=== PATIENT | female | born 1980 | race Caucasian/White ===

== ENCOUNTER → 2020-11-18 09:58 | Outpatient (BNVA) | payer OTHER, SELFPAY | PROVIDERS: Visit Provider Advanced Practice Midwife ==

== ENCOUNTER 2021-09-08 21:56 | Emergency (ER) | payer OTHER, SELFPAY ==
[2021-09-08 22:05] VITALS: BP 132/81; PULSE 97; RESP 18; TEMP 37; O2SAT 98; BMI 23.8
--- NOTE | 2021-09-08 23:34 | ED_ITS ---
HPI - Skin/Abscess/Foreign Bdy General Chief complaint: Skin/Abscess/Foreign Body Stated complaint: abscess? on nose Time Seen by Provider: 09/08/21 23:25 Source: patient Mode of arrival: ambulatory Limitations: no limitations History of Present Illness HPI narrative: Patient comes to emergency room complaining of 8 days of a rash under her nose into the left nostril. Patient states it bhakta via bed. Patient went to Urgent Care, she was given cephalexin and valacyclovir. Patient stop taking valacyclovir. Cephalexin has not helped much. Patient states that the rash looks more crusty and it bhakta quite a bit. Patient denies fever or chills Related Data Home Medications Medication Instructions Recorded Confirmed dextroamphetamine-amphetamine 20 1 tab PO TID 11/18/20 01/23/21 mg tablet paroxetine HCl 40 mg tablet 40 mg PO DAILY 11/18/20 01/23/21 buprenorphine 8 mg-naloxone 2 mg 10 mg SUBLINGUAL DAILY ea 01/23/21 01/23/21 sublingual film Previous Rx's Medication Instructions Recorded cephalexin 500 mg tablet 500 mg PO TID 7 Days #21 tab 09/01/21 fluconazole 150 mg tablet 150 mg PO Q3D #2 tab 09/01/21 valacyclovir 1 gram tablet 1,000 mg PO BID 10 Days #20 tab 09/01/21 sulfamethoxazole 800 1 tab PO BID #13 tab 09/08/21 mg-trimethoprim 160 mg tablet (Bactrim DS) Allergies Allergy/AdvReac Type Severity Reaction Status Date / Time acetaminophen [ACETAMINOPHEN] Allergy Intermediate INCREASES Verified 09/08/21 22:05 INTERSTITIAL CYSTITIS Review of Systems Review of Systems: Constitutional : No Weight loss, No Fever, No Chills, No Night Sweats, No Fatigue, No Malaise ENT/Mouth : No Hearing loss, No Ear Pain, No Nasal Congestion, No Sinus Pain, No Hoarseness, No sore throat, No Rhinorrhea, No Swallowing Difficulty Eyes: No Eye Pain, No Swelling, No Redness, No Foreign Body, No Discharge, No Vision Changes Cardiovascular : No Chest Pain, No SOB, No Dyspnea on Exertion, No Orthopnea, No Edema, No Palpitations Respiratory : No Cough, No Sputum, No Wheezing, No Smoke Exposure, No Dyspnea Gastrointestinal : No Nausea, No Vomiting, No Diarrhea, No Constipation, No abdominal Pain, No Hematochezia, No Melena Genitourinary : no irregular bleeding, No Dysuria, No Urinary Frequency, No Hematuria, No Urinary Incontinence, No Urgency, No Flank Pain, No Urinary Flow Changes, No Hesitancy Musculoskeletal : No joint pain, No Myalgias, No Joint Swelling Skin : Complaining of a crusty rash under her nose Neuro : No Weakness, No Numbness, No Paresthesias, No Loss of Consciousness, No Dizziness, No Headache Psych : No Anxiety/Panic, No Depression, No SI/HI/AH/VH, No Social Issues, Heme/Lymph: No Bruising, No Bleeding,No Lymphadenopathy Endocrine : No Polyuria, No Polydipsia, No Temperature Intolerance PMFSH Past Medical History Medical History JAME III (cervical intraepithelial neoplasia grade III) with severe dysplasia Family history of hypertension Ganglion cyst of dorsum of left wrist Ganglion cyst of dorsum of left wrist H/O bipolar disorder History of anxiety History of depression History of fibromyalgia Hx of migraine headaches Interstitial cystitis Polyarthralgia PTSD (post-traumatic stress disorder) Surgical History H/O abdominal hysterectomy History of bladder surgery History of loop electrical excision procedure (LEEP) Hx of section Hx of tubal ligation Family History Family History Mother Lung cancer Maternal Aunt Ovarian cancer Maternal Grandmother History of breast cancer Family/Other Mental health disorder Substance use disorder Social History Social History Housing: Apartment Alcohol intake: former Patient Tobacco Use Status: Current everyday Tobacco user Tobacco use type: Cigarette Cigarettes Per Day: 6 e-Cigarette/Vaping Use: Never Used Second Hand Smoke Exposure: No Advance Directives: No Advance Directives Information Provided: Yes Patient : No service: No Current occupational status: unemployed Physical Exam Vital Signs: Vital Signs: Last Vital Signs Temp 98.6 F 09/08/21 22:05 Pulse 97 09/08/21 22:05 Resp 18 09/08/21 22:05 BP 132/81 09/08/21 22:05 Pulse Ox 98 09/08/21 22:05 BMI result Body Mass Index 23.8 Const: Other: Appearance: Alert. Oriented X3. No acute distress. Eyes: Pupils equal, round and reactive to light. Fluorescent stain test negativ e for dendrites ENT: Pharynx normal. Negative Romero's sign Neck: Normal inspection. Neck supple. No lymph nodes noted. No crepitus CVS: Normal heart rate and rhythm. Pulses normal. Normal S1 and S2 Respiratory: No respiratory distress. Breath sounds normal. No Wheezing. No rales Abdomen: Soft and nontender. No rigidity. No distention. Skin: Skin warm and dry. Crusty lesions under the nose. Extremities: No lower extremity edema. No lower extremity edema. No Lacerations. No Rash Neuro: Oriented X 3. No motor deficit. No sensory deficit. Moving all extermities. No slurred speech. Course Course Course Narrative: I discussed with the patient that this is likely a staph infection, if patient was asked to discontinue taking cephalexin, 1st dose of Bactrim given in the emergency room. Patient instructed to continue taking valacyclovir which was prescribed at the urgent care. Differential diagnosis: Shingles Discharge Plan Discharge Clinical Impression: Impetigo Patient Disposition: Home, Self-Care Instructions: Impetigo (ED) Additional Instructions: If you have no improvement in the next 24-48 hours or worsening symptoms please return to the emergency room. Please follow-up with your primary care physician tomorrow. If you have any worsening or new symptoms, please return to the emergency room or call 911 Prescriptions: New sulfamethoxazole-trimethoprim [Bactrim DS] 800-160 mg tablet 1 tab PO BID Qty: 13 0RF No Action fluconazole 150 mg tablet 150 mg PO Q3D Qty: 2 0RF Rx Instructions: may repeat second dose 72 hrs after first dose if symptoms persist valacyclovir 1 gram tablet 1,000 mg PO BID 10 Days Qty: 20 0RF cephalexin 500 mg tablet 500 mg PO TID 7 Days Qty: 21 0RF paroxetine HCl 40 mg tablet 40 mg PO DAILY 0RF dextroamphetamine-amphetamine 20 mg tablet 1 tab PO TID 0RF buprenorphine-naloxone 8-2 mg film 10 mg sublingual DAILY 0RF Referrals: Bernardino Covarrubias [Physician] - 2 days
[2021-09-09] MEDS: Sulfamethox/Trimeth 800/160 TABLET 1 TAB PO (00:10)
[2021-09-09] MEDS: Fluorescein Sodium STRIP 1 STRIP EYE-BOTH (00:14)
== END 2021-09-09 00:15 | disposition home or self-care (01) ==
PROVIDERS: Emergency Provider Emergency Medicine; PCP Internal Medicine
DX: L01.00 Impetigo, unspecified (principal); F17.210 Nicotine dependence, cigarettes, uncomplicated; Z71.6 Tobacco abuse counseling; Z79.899 Other long term (current) drug therapy
CPT/HCPCS: 99283

== ENCOUNTER 2021-10-26 15:01 | Outpatient (REF) | payer OTHER, SELFPAY ==
--- NOTE | ~2021-10-26 | XR_ITS ---
EXAMINATION: XR HAND, LEFT CLINICAL INFORMATION: Unspecified injury. COMPARISON: None TECHNIQUE: PA, lateral, and oblique views of the left hand. FINDINGS: The bones and soft tissues are normal. No fracture. Alignment is anatomic. Joint spaces are maintained. No erosions or soft tissue calcifications. XR/XR hand LT min 3V IMPRESSION: Normal left hand.
== END 2021-10-26 15:02 | disposition home or self-care (01) ==
LOC: HO.HMGCX 15:01
PROVIDERS: Visit Provider Physician Assistant
DX: S69.92XD Unspecified injury of left wrist, hand and finger(s), subsequent encounter (principal)
CPT/HCPCS: 73130

== ENCOUNTER 2021-12-06 10:40 | Emergency (ER) | payer OTHER, SELFPAY | END 2021-12-06 12:20 | disposition left against medical advice (07) | PROVIDERS: Emergency Provider Emergency Medicine; PCP Internal Medicine | DX: Z04.1 Encounter for examination and observation following transport accident (principal) ==

== ENCOUNTER 2022-03-04 11:49 | Emergency (ER) | payer OTHER, SELFPAY ==
[2022-03-04 11:57] VITALS: BP 143/84; PULSE 62; O2SAT 94
[2022-03-04 13:55] VITALS: BP 121/73; PULSE 53; RESP 14; TEMP 36.8; O2SAT 98; BMI 24.6
[2022-03-04 14:27] LABS: COVID-19 Test Positive (Negative)
[2022-03-04 14:29] LABS: Appearance Urine Clear; Color Urine Yellow; Glucose Urine UA Negative (Negative); Leukocyte Esterase Urine Negative (Negative); Nitrite Urine Negative (Negative); Specific Gravity - Urine >= 1.030 (1.005-1.025); Urine Blood Negative (Negative); Urine Ketones >=160 mg/dL (Negative); Urine Protein 30 (1+) mg/dL (Neg-Trace)
[2022-03-04 14:33] LABS: Bacteria Urine None Seen (None Seen); Hyaline Casts Urine 0-2 /LPF (0-2); RBC Urine 0-2 /HPF (0-2); WBC Urine 0-5 /HPF (0-5)
--- NOTE | 2022-03-04 17:09 | ED_ITS ---
HPI - General Adult General Chief complaint: General Medical Stated complaint: GENERAL WEAKNESS Time Seen by Provider: 03/04/22 16:44 Source: patient Mode of arrival: ambulatory Limitations: no limitations History of Present Illness HPI narrative: 41 year old female with history of polyarthralgia, substance abuse on Suboxone, recent tooth extractions 5 days ago who presents to the ER for body aches and not feeling well for the last 3 days. She was recently around her mother was known to be COVID positive. She has been in bed for the last 3 days, sleeping longer than she normally does. She has decreased p.o. intake because of her recent tooth extractions. She denies any chest pain or shortness on breath. Her whole body feels very weak. She has had intermittent dizziness and restlessness over the weekend. He is not vomiting or having any diarrhea. Unknown if she has had any fevers. MD complaint: Body aches, decreased p.o. intake Onset (ago): day(s) (3) Location: head, face, mouth, back, left, right, upper extremity and lower extremity Radiation: non-radiation Severity: moderate Severity scale (1-10): 6 Quality: aching Pain Consistency: constant Relieving factors: none Exacerbating factors: none Associated symptoms: headaches, loss of appetite, malaise and weakness Treatments prior to arrival: none Related Data Home Medications Medication Instructions Recorded Confirmed dextroamphetamine-amphetamine 20 1 tab PO TID 11/18/20 01/23/21 mg tablet paroxetine HCl 40 mg tablet 40 mg PO DAILY 11/18/20 01/23/21 buprenorphine 8 mg-naloxone 2 mg 10 mg sublingual DAILY 01/23/21 01/23/21 sublingual film Previous Rx's Medication Instructions Recorded cephalexin 500 mg tablet 500 mg PO TID 7 days #21 tabs 09/01/21 fluconazole 150 mg tablet 150 mg PO Q3D 2 doses #2 tabs 09/01/21 valacyclovir 1 gram tablet 1,000 mg PO BID 10 days #20 tabs 09/01/21 sulfamethoxazole 800 1 tab PO BID #13 tabs 09/08/21 mg-trimethoprim 160 mg tablet (Bactrim DS) Allergies Allergy/AdvReac Type Severity Reaction Status Date / Time acetaminophen [ACETAMINOPHEN] Allergy Intermediate INCREASES Verified 10/26/21 14:46 INTERSTITIAL CYSTITIS Review of Systems Review of Systems: Constitutional: No Fever, No Chills ENT/Mouth: No sore throat, No Rhinorrhea, No Swallowing Difficulty, +Dental pain Cardiovascular: No Chest Pain, No SOB Respiratory: No Cough, No Sputum, No Wheezing, No dyspnea Gastrointestinal: No Nausea, No Vomiting, No Diarrhea, No abdominal Pain Genitourinary: No Dysuria, No Urinary Frequency, No Hematuria Musculoskeletal: No joint pain, No Myalgias Skin: No Skin Lesions, No rash Neuro: + Weakness, No Numbness, + Dizziness, + Headache Psych: No Anxiety/Panic, No Depression Heme/Lymph: No Bruising, No Lymphadenopathy PMFSH Past Medical History Medical History JAME III (cervical intraepithelial neoplasia grade III) with severe dysplasia Family history of hypertension Ganglion cyst of dorsum of left wrist Ganglion cyst of dorsum of left wrist H/O bipolar disorder History of anxiety History of depression History of fibromyalgia Hx of migraine headaches Interstitial cystitis Polyarthralgia PTSD (post-traumatic stress disorder) Surgical History H/O abdominal hysterectomy History of bladder surgery History of loop electrical excision procedure (LEEP) Hx of section Hx of tubal ligation Family History Family History Mother Lung cancer Maternal Aunt Ovarian cancer Maternal Grandmother History of breast cancer Family/Other Mental health disorder Substance use disorder Social History Social History Housing: Apartment Alcohol intake: former Patient Tobacco Use Status: Current everyday Tobacco user Tobacco use type: Cigarette Cigarettes Per Day: 6 e-Cigarette/Vaping Use: Never Used Second Hand Smoke Exposure: No Advance Directives: No Advance Directives Information Provided: No service: No Current occupational status: unemployed Physical Exam ED Vital Signs: Vital Signs - 24 hr 03/04/22 13:55 Temperature 98.2 F Pulse Rate 53 Respiratory Rate 14 Blood Pressure 121/73 Pulse Oximetry 98 Oxygen Delivery Method Room Air BMI result Body Mass Index 24.6 Appearance: Alert. Oriented X3. No acute distress. Eyes: Pupils equal, round and reactive to light. ENT: Pharynx with pam mucus membranes. No dentition aside from lower frontal brown tooth fragments. no palpable abscess. Neck: Normal inspection. Neck supple. CVS: Normal heart rate and rhythm. Pulses normal. Respiratory: No respiratory distress. Breath sounds normal. Skin: Skin warm and dry. Normal skin color. Normal skin turgor. No rashes. Extremities: No lower extremity edema. Neuro: Oriented X 3. Nonfocal. Course Course Course Narrative: 41-year-old female with recent tooth extractions 5 days ago presents to the ER with body aches and not feeling well. She has been sleeping excessively. No known fevers. She has decreased p.o. intake due to the dental extractions and not feeling well. On arrival to the ER today she is hemodynamically stable, afebrile, vital signs are normal. On examination her lungs are clear. No appreciated dental abscess. Urinalysis was done which is showing a high specific gravity and some protein urea. She has no urinary symptoms. She admits to decreased p.o. intake today and has been in the waiting room for 5 hours. She has no vomiting or diarrhea. Given water by her friend without issue. At this time she is stable for discharge home with supportive care and plan for outpatient follow-up. Medical Decision Making Lab Data Labs: Lab Results 03/04/22 03/04/22 Range/Units 14:02 14:08 Urine Color Yellow Urine Appearance Clear Urine pH 6.0 (5.0-8.0) Ur Specific [place] >= 1.030 H (1.005-1.025) Urine Protein 30 (1+) H (Neg-Trace) mg/dL Urine Glucose (UA) Negative (Negative) mg/dL Urine Ketones >=160 (Negative) mg/dL Urine Blood Negative (Negative) Urine Nitrite Negative (Negative) Ur Leukocyte Esterase Negative (Negative) Urine RBC 0-2 (0-2) /HPF Urine WBC 0-5 (0-5) /HPF Ur Squamous Epith Cells 3-5 (0-2) /HPF Urine Bacteria None Seen (None Seen) Hyaline Casts 0-2 (0-2) /LPF COVID-19 ([facility]) Positive A (Negative) COVID-19 Clin Com See Note Discharge Plan Discharge Clinical Impression: COVID-19 Patient Disposition: Home, Self-Care Instructions: Covid-19 Viral Syndrome and Novel Coronavirus (ED) Hey/Ath Additional Instructions: You were found to be COVID-19 POSITIVE today. Your exam and oxygen levels were normal. Rest. Drink plenty of fluids. Your urine today showed protein and signs of mild dehydration, recommend getting repeat urinalysis done with your primary care doctor in the future to ensure the protein is no longer present. Do not go out in public while you are not feeling well. Take over the counter cold/flu medications as needed for your symptoms. Take Tylenol and/or Motrin as needed for fevers and body aches. Follow up with your doctor this week. If you develop new or worsening symptoms call 911 or come back to the ER for further evaluation. Prescriptions: No Action sulfamethoxazole-trimethoprim [Bactrim DS] 800-160 mg tablet 1 tab PO BID Qty: 13 0RF fluconazole 150 mg tablet 150 mg PO Q3D Qty: 2 0RF Rx Instructions: may repeat second dose 72 hrs after first dose if symptoms persist valacyclovir 1 gram tablet 1,000 mg PO BID 10 Days Qty: 20 0RF cephalexin 500 mg tablet 500 mg PO TID 7 Days Qty: 21 0RF paroxetine HCl 40 mg tablet 40 mg PO DAILY dextroamphetamine-amphetamine 20 mg tablet 1 tab PO TID buprenorphine-naloxone 8-2 mg film 10 mg sublingual DAILY
== END 2022-03-04 17:49 | disposition home or self-care (01) ==
PROVIDERS: Emergency Provider Emergency Medicine; PCP Internal Medicine
DX: M79.10 Myalgia, unspecified site (principal); F17.210 Nicotine dependence, cigarettes, uncomplicated; Z20.822 Contact with and (suspected) exposure to COVID-19; Z79.899 Other long term (current) drug therapy; Z71.6 Tobacco abuse counseling
CPT/HCPCS: 81001; 87635; 99282; 99283

== ENCOUNTER 2022-03-15 11:46 | Outpatient (REF) | payer OTHER, SELFPAY ==
--- NOTE | ~2022-03-15 | XR_ITS ---
EXAMINATION: XR SHOULDER, RIGHT CLINICAL INFORMATION: Right shoulder pain COMPARISON: None TECHNIQUE: AP external rotation, Grashey, scapular Y, and axillary views of the right shoulder. FINDINGS: There is mild acromioclavicular osteoarthritis. Glenohumeral joint is well preserved. No fracture. Alignment is anatomic. Soft tissues are normal with no abnormal calcifications. XR/XR shoulder RT min 2V IMPRESSION: Mild osteoarthritis of the right acromioclavicular joint.
== END 2022-03-15 11:47 | disposition home or self-care (01) ==
LOC: HO.XRAY 11:46
PROVIDERS: PCP Internal Medicine; Visit Provider Internal Medicine
DX: M25.511 Pain in right shoulder (principal)
CPT/HCPCS: 73030

== ENCOUNTER 2022-04-17 09:54 | Outpatient (REF) | payer OTHER, SELFPAY ==
[2022-04-17 12:31] LABS: HBsAGNum1 0.24 S/CO (0.00-0.99); HIV AB/AG Nonreactive (Nonreactive); HIV Num 1 0.04 S/CO (0.00-0.99); Hepatitis B Surface Antigen Negative (Negative); ~Hepatitis C Antibody Nonreactive (Nonreactive)
[2022-04-18 07:23] LABS: Syphilis Screen Nonreactive (Nonreactive)
[2022-04-18 13:28] LABS: BV Int Neg Control Negative (Negative); BV Int Pos Control Positive (Positive)
[2022-04-19 13:22] LABS: HPV mRNA E6/E7 rflx Not Detected (Not Detected)
== END 2022-04-17 09:55 | disposition home or self-care (01) ==
LOC: HO.LNP 09:54
PROVIDERS: Visit Provider Obstetrics & Gynecology
DX: Z01.419 Encounter for gynecological examination (general) (routine) without abnormal findings (principal); Z11.51 Encounter for screening for human papillomavirus (HPV); Z11.4 Encounter for screening for human immunodeficiency virus [HIV]; Z11.3 Encounter for screening for infections with a predominantly sexual mode of transmission; B96.89 Other specified bacterial agents as the cause of diseases classified elsewhere; N76.0 Acute vaginitis
CPT/HCPCS: 86780; 86803; 87340; 87389; 87480; 87510; 87624; 87660; 88142

== ENCOUNTER 2022-05-01 10:32 | Outpatient (REF) | payer OTHER, SELFPAY ==
--- NOTE | ~2022-05-01 | MM_ITS ---
EXAMINATION: MM SCREENING DIGITAL BREAST TOMOSYNTHESIS, BILATERAL CLINICAL INFORMATION: Screening. Asymptomatic. The lifetime risk of breast cancer based on the Tyrer-Cuzick Model is 6%. COMPARISON: Mammography: 08/12/2019 (baseline) TECHNIQUE: Digital breast tomosynthesis is performed in both the craniocaudal and mediolateral oblique views along with computer-aided detection (CAD). Synthesized 2D images are generated from the tomosynthesis. FINDINGS: There are scattered areas of fibroglandular density (ACR BI-RADS breast composition Category b). There are minor shifting fibroglandular densities related to variation in positioning. No interval mass or architectural abnormality or abnormal calcifications. The skin contours are smooth. There are no significant changes from initial baseline exam. MM/MM tomosynthesis screening BI IMPRESSION: No mammographic evidence of malignancy. ASSESSMENT: BI-RADS 1: Negative RECOMMENDATION: Routine annual mammography screening. This patient's information was entered into a reminder system with a target due date for their next mammogram.
== END 2022-05-01 10:33 | disposition home or self-care (01) ==
LOC: HO.MAMMO 10:32
PROVIDERS: PCP Internal Medicine; Visit Provider Internal Medicine
DX: Z12.31 Encounter for screening mammogram for malignant neoplasm of breast (principal)
CPT/HCPCS: 77063; 77067

== ENCOUNTER 2022-05-02 11:17 | Outpatient (REF) | payer OTHER, SELFPAY | END 2022-05-02 11:18 | disposition home or self-care (01) | LOC: HO.LNP 11:17 | PROVIDERS: PCP Internal Medicine; Visit Provider Obstetrics & Gynecology | DX: N90.9 Noninflammatory disorder of vulva and perineum, unspecified (principal) | CPT/HCPCS: 56605; 56606; 88304; 88305 ==

== ENCOUNTER 2022-05-14 07:37 | Outpatient (REF) | payer OTHER, SELFPAY ==
[2022-05-14 08:25] LABS: Alanine Aminotransferase 9 U/L (0-31); Albumin Level 4.4 g/dL (3.5-5.0); Alkaline Phosphatase 59 U/L (39-117); Anion Gap 14 (12-20); Aspartate Amino Transferase 15 U/L (5-31); Bilirubin Total 0.3 mg/dL (0.0-1.0); Blood Urea Nitrogen 12 mg/dL (9-16); Calcium 9.8 mg/dL (8.4-10.2); Carbon Dioxide 30 mmol/L (22-29); Chloride 103 mmol/L (96-108); Cholesterol 188 mg/dL; Estimated Glomerular Filt Rate > 60; Glucose Fasting 100 mg/dL (60-99); HDL Cholesterol 47 mg/dL; LDL Cholesterol Calculated 119 mg/dl; Potassium 4.8 mmol/L (3.3-5.1); Sodium 142 mmol/L (135-145); Total Protein 7.5 g/dL (6.5-8.0); Triglycerides 114 mg/dL
== END 2022-05-14 07:38 | disposition home or self-care (01) ==
LOC: HO.LAB 07:37
PROVIDERS: PCP Internal Medicine; Visit Provider Internal Medicine
DX: Z82.49 Family history of ischemic heart disease and other diseases of the circulatory system (principal)
CPT/HCPCS: 36415; 80053; 80061

== ENCOUNTER → 2022-05-21 11:11 | Outpatient (BNVA) | payer OTHER, SELFPAY | PROVIDERS: PCP Internal Medicine; Visit Provider Obstetrics & Gynecology | DX: N90.9 Noninflammatory disorder of vulva and perineum, unspecified (principal) | CPT/HCPCS: 99212 ==

== ENCOUNTER 2022-11-01 11:26 | Outpatient (REF) | payer OTHER, SELFPAY ==
--- NOTE | 2022-11-01 09:15 | EMG_ITS ---
Right median and ulnar motor and sensory studies were performed. Right radial sensory and median and lateral antecubital sensory studies were performed and needle examination was performed. IMPRESSION: 1. Right mid to lower cervical radiculopathy. 2. Mild right ulnar neuropathy across cubital tunnel. MD CHRISTIAN Do/AKIL / [id number]
== END 2022-11-01 11:27 | disposition home or self-care (01) ==
LOC: HO.NEURO 11:26
PROVIDERS: PCP Internal Medicine; Visit Provider Internal Medicine
DX: R20.0 Anesthesia of skin (principal)
CPT/HCPCS: 95886; 95910

== ENCOUNTER 2022-11-28 10:00 | Outpatient (RCR) | payer OTHER, SELFPAY ==
--- NOTE | 2022-11-14 12:09 | MHC.OT.EP ---
[address] [phone] Occupational Therapy Plan of Care Patient Name: Ginette Poe Date of Evaluation: 11/14/22 Diagnosis: Ulnar Neuropathy Pain Location: 3/10 constant sharp-burning resting pain in right D1-D3 8/10 sharp pain w/ most use Pain Score: 8 Pain Scale Used: Numeric (0 - 10) Aggravating Factors: Gripping, touching objects, use Alleviating Factors: Fingerless glove, compression Assessment: 42 yo female was seen by her PCP for shoulder pain and numbness in her hand. Symptoms have been present for past six months after waking up with painful numbness in right D1-D3. She was referred for nerve conduction, which shows mild ulnar nuropathy over cubital tunnel and cervical radiculopathy. She has been out of work the past 14 years due to pain, but lives with her family and has help when needed for daily activities. She reports difficulty w/ all grasping and holding activities, with sharp-burning pain in thumb, index and middle fingers. On assessment, sensation and nerve strength is WNL, mild atrophy noted B/L'ly in hands, possibly more flattening over volar MCP's on right. She has Tinel's over [place] and Cubital Tunnel, but not over Carpal Tunnel, and mild (+) Phalen's test for carpal tunnel syndrome. We have fabricated resting wrist orthosis for nighttime wear and initiad nerve gliding exercise, but she will benefit from cont'd therapy services to address median and ulnar neuropathies. Frequency and Duration: The patient will be seen 2x/wk for 4 weeks Short Term Goals: Ind w/ orthosis wear Ind w/ HEP Pt to report ease w/ light daily activites [facility]ci Goals: QuickDASH score <50 pts Pt to report ease w/ activity modifications to prevent nerve compression Pt to report ease w/ sleeping due to positional changes Treatment Plan: Therapeutic Exercise Therapeutic Activity Home Exercise Program Splinting Neuro Re-ed Patient Education Desensitization/Sensory Re-ed Edema Control ADL Training Ultrasound Paraffin MHP Cold Packs Joint Mobilization Soft Tissue Mobilization Kinesiotaping Nighttime resting orthosis Electronically Signed By: Kassandra Motta, OTR/L CHT Please Sign and return to therapist. Thank you once again for your referral.
--- NOTE | 2022-12-12 10:23 | MHC.OT.DC ---
[address] [phone] F: [phone] Occupational Therapy Discharge Note Patient Name: Ginette Poe Provider: Dr Mee Villegas Diagnosis: Ulnar Neuropathy Date of Evaluation: 11/14/22 Date of Discharge: 12/12/22 Treatments to Date: 2 Cancellations to Date: 1 No Shows to Date: 2 Discharge Status: Patient Elected to Stop Visit Non-compliance Discharge Summary: Ginette was referred to OT for assessment and management of ulnar neuropathy symptoms. She was seen for initial assessment and one follow up, custom orthosis made but pt w/ difficulty wearing due to discomfort. On last appointment attended, she believed she was coming for assessment of her neck pain, however she was informed to follow up w/ MD for PT referral. She has since missed all scheduled visits and we will discharge from OT at this time. Electronically Signed By: LYNN Wyman/Alvin CHT Reviewed/agree with student documentation: Therapist: Please Sign and return to therapist, thank you for your referral.
== END 2022-12-12 10:25 | disposition home or self-care (01) ==
LOC: HO.OT 10:00
PROVIDERS: PCP Internal Medicine; Visit Provider Internal Medicine
DX: G56.20 Lesion of ulnar nerve, unspecified upper limb (principal)
CPT/HCPCS: 29125; 97110; 97166; 97760

== ENCOUNTER → 2023-01-02 09:58 | Outpatient (BNVA) | payer OTHER, SELFPAY | PROVIDERS: PCP Internal Medicine; Visit Provider Orthopaedic Surgery | DX: G56.21 Lesion of ulnar nerve, right upper limb (principal); M54.12 Radiculopathy, cervical region; M54.2 Cervicalgia | CPT/HCPCS: 99202 ==

== ENCOUNTER 2023-01-16 15:58 | Outpatient (REF) | payer OTHER, SELFPAY | END 2023-01-16 15:59 | disposition home or self-care (01) | LOC: HO.MRI 15:58 | PROVIDERS: Visit Provider Orthopaedic Surgery | DX: M54.2 Cervicalgia (principal); M54.12 Radiculopathy, cervical region | CPT/HCPCS: 72141 ==

== ENCOUNTER 2023-03-12 09:46 | Outpatient (AMB) | payer OTHER, SELFPAY ==
--- NOTE | 2023-03-12 09:54 | A.OFFVIS_ITS ---
Intake Vital Signs 03/12/23 09:55 Height 4 ft 11 in Weight 125 lb BMI 25.2 Intake Visit Reasons: OV-RT CTS Follow up Intake Note: Ginette 42 yr old right hand dominant female, presents today for her right hand CTS. Last seen on 01/01/[address] Mitchell who wanted patient to be evaluated for her neck with pain management but patient states she declined to schedule. Patient presents today to discuss Right Cubital tunnel syndrome, mild Symptoms intermittent and occasional, states its worse at night time. EMG done Allergies acetaminophen [ACETAMINOPHEN] Allergy (Intermediate, Verified 03/12/23 10:00) INCREASES INTERSTITIAL CYSTITIS HPI OV-RT CTS Follow up HPI Details Ginette is a 42 year old ambidextrous woman who presents to discuss her right hand numbness. She has known cervical radiculopathy and completed an MRI of her C-spine. She was referred urgently to Pain Management at her last appointment but she declined to see them. She says she though Pain Management w as only for pain pills which she did not want. She is currently not working, and has been out of work for ~13 years now. She continues to have constant numbness in her right hand, mostly in the thumb index and middle fingers,, along with a burning pain and weakness. She says this has been getting worse recently and is now moving into her palm, at the base of her index and middle fingers. She says her thumb, index, and middle fingers are constantly numb, with intermittent numbness in the ring and small fingers. She denies any numbness in her left hand. She denies any bowel or bladder dy sfunction. She says she has attempted OT twice so far, but had a poor experience with them and discontinued her therapy. According to the OT note from 12/12/22, she discontinued and was discharged for non-compliance as she reportedly missed most of her appointments. [facility] Medical History JAME III (cervical intraepithelial neoplasia grade III) with severe dysplasia Family history of hypertension Ganglion cyst of dorsum of left wrist Ganglion cyst of dorsum of left wrist H/O bipolar disorder History of anxiety History of depression History of fibromyalgia Hx of migraine headaches Interstitial cystitis Polyarthralgia PTSD (post-traumatic stress disorder) Surgical History H/O abdominal hysterectomy History of bladder surgery History of loop electrical excision procedure (LEEP) Hx of section Hx of tubal ligation Family History Mother Lung cancer Maternal Aunt Ovarian cancer Maternal Grandmother History of breast cancer Family/Other Mental health disorder Substance use disorder Social History Housing: Apartment Alcohol intake: former Patient Tobacco Use Status: Current everyday Tobacco user Tobacco use type: Cigarette Cigarettes Per Day: 6 e-Cigarette/Vaping Use: Never Used Second Hand Smoke Exposure: No service: No Current occupational status: unemployed Current occupation: right hand Cognitive needs: No Hearing needs: No Vision needs: No Physical Exam Vital Signs: BMI result Body Mass Index 25.2 Extrem Other: Evaluation of Right Upper Extremity: The patient is alert, oriented, and in no acute distress Neuro: Dense numbness in the median nerve distribution, normal sensation in the ulnar nerve distribution today in clinic. Numbness extending down into the mid-p zeny at the base of the index and middle fingers No thenar or intrinsic wasting She still has APB muscle belly firing and good finger cross She has some flattening of the thenar eminence Vascular: Cap refill brisk ROM: She can make a fist and extend all her digits Nerve Conduction Study: IMPRESSION:? 1. Right mid to lower cervical radiculopathy. 2. Mild right ulnar neuropathy across cubital tunnel. Dakota Bravo MD 11/01/2022 MRI Cervical spine wo con IMPRESSION: 1. Large left paracentral disc protrusion at the C5-C6 level resulting in moderate cord compression without intramedullary signal change. Lrqpknfu-[id number] foraminal narrowing, more so on the left side. ? 2. Left paracentral disc protrusion at the C4-C5 level without cord compression. ? 3. Disc-osteophyte complex at the C6-C7 level with mild central canal stenosis and severe bilateral foraminal encroachment. ? 4. Leftward curvature of the cervical spine. Small right posterolateral disc protrusion and endplate spurring at the C2-C3 level with [id number] right foraminal narrowing. Qkcb-tk-[id number] right foraminal narrowing as well at the C3-C4 level. ? Dictated By: MAGGIE GAMBOA MD 01/16/23 Assessment & Plan Assessment & Plan (1) Cubital tunnel syndrome on right: Code(s): G56.21 - Lesion of ulnar nerve, right upper limb (2) Cervical radiculopathy: Code(s): M54.12 - Radiculopathy, cervical region (3) Neck pain: Code(s): M54.2 - Cervicalgia Plan Assessment & Plan: 1. Numbness in the median nerve distribution concerning for Cervical radiculopathy, mid to lower right side EMG nerve conduction study negative for carpal tunnel syndrome I educated her about this condition She completed her C-spine MRI but declined an appointment with Pain management. She was under the impression that Pain Management was only for pain pills and she did not want that. I explained that the department is the non-operative spine specialists and they offer more treatment than just pain medication. They will evaluate her and help treat her radiculopathy non-operatively or co-ordinate with the spine surgeons if surgery is warranted. I expressed the importance of her being seen by Pain Management, and she expressed understanding. I then spoke with Tami, our nurse. Because of the delay in her being seen by our pain management team, who also evaluate for non operative spine, we decided to try to refer her directly to our spine surgeons further evaluation and care. 2. Right Cubital tunnel syndrome, mild Symptoms intermittent and only occasional I educated her about this condition No intervention warranted at this time Scribed for Debra Mitchell MD by Wilfredo Stephens, biomedical service engineer, on 03/12/23 at 10:25 AM, EST. Coding Level of Care Code Est Pt Level 4 (10936) Diagnoses Cubital tunnel syndrome on right G56.21 Cervical radiculopathy M54.12 Neck pain M54.2
[2023-03-12 09:55] VITALS: BMI 25.2
== END 2023-03-12 10:30 | disposition home or self-care (01) ==
PROVIDERS: PCP Internal Medicine; Visit Provider Orthopaedic Surgery
DX: G56.21 Lesion of ulnar nerve, right upper limb (principal); M54.2 Cervicalgia
CPT/HCPCS: 99214

== ENCOUNTER → 2023-03-12 09:46 | Outpatient (BNVA) | payer OTHER, SELFPAY | PROVIDERS: PCP Internal Medicine; Visit Provider Orthopaedic Surgery | DX: G56.21 Lesion of ulnar nerve, right upper limb (principal); M54.12 Radiculopathy, cervical region; M54.2 Cervicalgia | CPT/HCPCS: 99212 ==

== ENCOUNTER 2023-03-22 10:22 | Outpatient (AMB) | payer OTHER, SELFPAY ==
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
== END 2023-03-22 12:00 | disposition home or self-care (01) ==
PROVIDERS: PCP Internal Medicine; Referring Provider Orthopaedic Surgery; Visit Provider Physician Assistant
DX: M54.12 Radiculopathy, cervical region (principal)
CPT/HCPCS: 99205

== ENCOUNTER → 2023-03-22 10:22 | Outpatient (BNVA) | payer OTHER, SELFPAY | PROVIDERS: PCP Internal Medicine; Visit Provider Physician Assistant ==

== ENCOUNTER 2023-04-08 07:37 | Outpatient (REF) | payer OTHER, SELFPAY ==
--- NOTE | ~2023-04-08 | CT_ITS ---
EXAMINATION: CT CERVICAL SPINE WITHOUT CONTRAST CLINICAL INFORMATION: Cervical radiculopathy. COMPARISON: Cervical spine MRI 01/16/2023. TECHNIQUE: Hand Method Lasting Machine Operator images were obtained. CT imaging of the cervical spine was performed without contrast. Data was reformatted into multiplanar images at the acquisition workstation. This CT examination was performed using dose optimization techniques as appropriate, including one or more of the following: Automated exposure control, iterative reconstruction, and adjustment of technique factors (mA and/or kVp) according to patient size (this includes techniques or standardized protocols for targeted exams where dose is matched to indication/reason for exam). Fleischner Society criteria for the followup of incidental pulmonary nodules was implemented if appropriate. DLP: 315 mGy-cm FINDINGS: There is nonspecific straightening of the cervical lordosis. Alignment is otherwise normal. Vertebral heights are preserved. No acute fracture. No abnormal prevertebral soft tissue swelling. There is slight loss of intervertebral disc height with associated hypertrophic disc osteophyte spurring at multiple levels. There is also degenerative arthrosis of the atlantodental joint with marginal spurring of the odontoid tip and the anterior C1 arch. There is a focal left central protrusion/extrusion at C5-C6 causing indentation of the thecal sac and distortion of the left ventral surface of the cervical cord. There is at least moderate canal stenosis at this level. Otherwise no canal compromise. Uncovertebral joint spurring and conjunction with facet degenerative change causes moderate to severe bilateral neuroforaminal encroachment at C6-C7. Visualized soft tissues of the neck are normal. Lung apices are clear. CT/CT cervical spine wo IV con IMPRESSION: There is multilevel degenerative spondylosis of the cervical spine. There is a focal left central protrusion/extrusion at C5-C6 this finding is better depicted on recent MR imaging of the cervical spine from 01/16/2023. No acute cervical spine fracture. Uncovertebral joint spurring in conjunction with facet degenerative change causes moderate to severe bilateral neuroforaminal encroachment at C6-C7.
== END 2023-04-08 07:38 | disposition home or self-care (01) ==
LOC: HO.CT 07:37
PROVIDERS: PCP Internal Medicine; Visit Provider Physician Assistant
DX: M54.12 Radiculopathy, cervical region (principal)
CPT/HCPCS: 72125

== ENCOUNTER 2023-04-24 10:15 | Outpatient (AMB) | payer OTHER, SELFPAY ==
--- NOTE | 2023-04-24 10:17 | MHC.OFFVIS ---
Intake Vital Signs 04/24/23 10:19 Height 4 ft 11 in Weight 121 lb BMI 24.4 BP 110/68 Intake Visit Reasons: Annual Intake Note: c/o of vaginal odor Metal Stamper Required: No Information Interpreted: non-clinical & clinical Jailer/Training Officer: Jailer/Training Officer Present (Lorraine LUA) Accompanied by: Self / Same As Patient Allergies acetaminophen [ACETAMINOPHEN] Allergy (Intermediate, Verified 04/24/23 10:20) INCREASES INTERSTITIAL CYSTITIS Is last menstrual period known: No (Hysterectomy) HPI HPI Comments History of Present Illness Details Presenting for annual exam. No complaints. Last Pap/HPV was negative in 05/05 Last Mammogram was BI-RADS 1 in 05/05 [facility] Medical History Family history of hypertension Polyarthralgia Ganglion cyst of dorsum of left wrist JAME III (cervical intraepithelial neoplasia grade III) with severe dysplasia Ganglion cyst of dorsum of left wrist Hx of migraine headaches History of anxiety History of depression PTSD (post-traumatic stress disorder) H/O bipolar disorder Interstitial cystitis History of fibromyalgia Surgical History Hx of section History of bladder surgery History of loop electrical excision procedure (LEEP) Hx of tubal ligation H/O abdominal hysterectomy Family History Mother Lung cancer Maternal Aunt Ovarian cancer Maternal Grandmother History of breast cancer Family/Other Mental health disorder Substance use disorder Social History Housing: Apartment Alcohol intake: former Patient Tobacco Use Status: Current everyday Tobacco user Tobacco use type: Cigarette Cigarettes Per Day: 6 e-Cigarette/Vaping Use: Never Used Second Hand Smoke Exposure: No service: No Current occupational status: unemployed Current occupation: right hand Cognitive needs: No Hearing needs: No Vision needs: No Female Reproductive History Menstrual Total pregnancies: 3 Full term: 1 Number of Living Children: 1 Ab induced: 1 Ab spontaneous: 1 Date of last pap smear: 04/18/22 Date of Mammogram: 05/01/22 Review of Systems Const All systems reviewed & are unremarkable except as noted in HPI and below Card Reports as per HPI Resp Reports as per HPI GI Reports as per HPI and Reports no additional complaints Reports as per HPI Physical Exam Vital Signs: Last Vital Signs BP 110/68 04/24/23 10:19 BMI result Body Mass Index 24.4 Const General: cooperative, healthy appearing and comfortable Chest Chest palpation & inspection: normal inspection of the chest and normal palpation of entire chest wall Breast/axilla inspection: normal inspection of the breasts and normal inspection of the axillae Breast/axilla palpation: normal palpation of the breasts, normal palpation of the axillae and no axillary lymphadenopathy Resp Effort & Inspection: normal respiratory effort Auscultation: clear to auscultation bilaterally Percussion: percussion normal Cardio Palpation: normal PMI Rate: regular rate Rhythm: regular rhythm Heart sounds: no murmurs and no rubs Peripheral pulses: Peripheral pulses 2+ throughout GI Inspection: Yes normal to inspection Palpation (GI): Soft to palpation, nontender, no guarding, not rigid and No hepatosplenomegaly present Percussion: Yes normal to percussion Auscultation: normal bowel sounds Rectal Exam - Female: deferred General: Yes bladder normal to palpation External Female Exam: No lesion Speculum Exam - Vagina: normal appearance of the vagina, normal palpation, normal vaginal discharge and not erythematous Bimanual exam- vagina & uterus: normal bimanual exam, normal palpation, bladder normal to palpation and uterus absent Bimanual Exam- Adnexa, other: normal adnexae, no masses and no tenderness Assessment & Plan Assessment & Plan (1) Well woman exam: Comment: History of JAME 3 in 2014 status post hysterectomy Code(s): Z01.419 - Encounter for gynecological examination (general) (routine) without abnormal findings Plan: Cotesting not indicated this year. Mammogram ordered. Counseled the patient about the recommended dietary allowance of 1000 mg of Calcium & 600 IU of vitamin D. The patient was instructed to perform monthly self-breast exams and to schedule an annual exam in a year; All questions answered and the patient verbalized understanding. Instructed the patient to schedule annual exam in a year Orders: Orders MM screening mammo BI Today Z12.31 - Encounter for screening mammogram for malignant neoplasm of breast Coding Level of Care Code Est Pt Prev Care 40-64y(06134) Diagnoses Well woman exam Z01.419
[2023-04-24 10:19] VITALS: BP 110/68; BMI 24.4
== END 2023-04-24 10:49 | disposition home or self-care (01) ==
PROVIDERS: PCP Internal Medicine; Visit Provider Obstetrics & Gynecology
DX: Z01.419 Encounter for gynecological examination (general) (routine) without abnormal findings (principal)
CPT/HCPCS: 99396

== ENCOUNTER → 2023-04-24 10:15 | Outpatient (BNVA) | payer OTHER, SELFPAY | PROVIDERS: Visit Provider Obstetrics & Gynecology | DX: Z01.419 Encounter for gynecological examination (general) (routine) without abnormal findings (principal) | CPT/HCPCS: 99396 ==

== ENCOUNTER 2023-06-13 06:05 | Day surgery (SDC) | payer OTHER, SELFPAY ==
--- NOTE | 2023-05-24 | ECG_ITS ---
Test Reason : pre-op Blood Pressure : / mmHG Vent. Rate : 057 BPM Atrial Rate : 057 BPM P-R Int : 176 ms QRS Dur : 082 ms QT Int : 422 ms P-R-T Axes : 054 110 062 degrees QTc Int : 410 ms Sinus bradycardia Right axis deviation Abnormal ECG No previous ECGs available Referred By: Ellis Horton Electronically Signed By:MACK DOOLEY MD
[2023-05-24 12:09] VITALS: BP 115/57; PULSE 67; RESP 20; O2SAT 98; BMI 24.4
[2023-05-24 13:44] LABS: Hemoglobin 15.4 g/dl (12.0-16.0); Mean Corpuscular HGB Conc 33.5 g/dl (31.0-35.0); Mean Corpuscular Hemoglobin 30.4 pg (27.0-33.0); Mean Corpuscular Volume 90.9 fL (80.0-98.0); Mean Platelet Volume 10.5 fL (9.4-12.3); Platelet Count 296 X10*3/uL (160-400); Red Blood Count 5.06 X10*6/uL (4.20-5.50); Red Cell Distribution Width 14.1 % (11.0-16.0); White Blood Count 6.8 X10*3/uL (4.8-10.8)
[2023-05-24 14:09] LABS: Anion Gap 6 (12-20); Blood Urea Nitrogen 12 mg/dL (9-16); Calcium 8.9 mg/dL (8.4-10.2); Carbon Dioxide 32 mmol/L (22-29); Chloride 107 mmol/L (96-108); Creatinine Clr Calc Pharmacy 82.6; Estimated Glomerular Filt Rate > 60; Glucose Random 74 mg/dL (60-115); Potassium 4.1 mmol/L (3.3-5.1); Sodium 141 mmol/L (135-145)
--- NOTE | 2023-06-12 08:58 | HO.ANESPROP2 ---
Documented by User: Zenaida Mcginnis NP 06/12/23 09:00 HPI - Anesthesia Eval Consult details Narrative: 43yo F for C5-6, C6-7 ACDF (Ant Cerv Discectomy w/ fusion) Suboxone daily. To hold DOS s/p tubal Seen in PAT by Dr Horton 05/24/23 [facility] Active Problems Active Problems: All Active Problems (Updated 05/24/23 @ 12:05 by Pebbles Navarro RN) Cervical radiculopathy (Acute) Cubital tunnel syndrome on right (Acute) Neck pain (Acute) Ulnar neuropathy at wrist (Acute) Blurry vision (Acute) Physical exam (Acute) Hand numbness (Acute) Lesion of female perineum (Acute) Bacterial vaginosis (Acute) Well woman exam (Acute) Mild recurrent major depression (Acute) Fibromyalgia (Acute) Hospital discharge follow-up (Acute) Right shoulder pain (Acute) COVID-19 (Acute) Finger injury (Acute) Family history of hypertension (Acute) Polyarthralgia (Acute) Past Medical History Medical History Opiate dependence Family history of hypertension Polyarthralgia Ganglion cyst of dorsum of left wrist JAME III (cervical intraepithelial neoplasia grade III) with severe dysplasia Hx of migraine headaches History of anxiety History of depression PTSD (post-traumatic stress disorder) H/O bipolar disorder Interstitial cystitis History of fibromyalgia Family History Family History Mother Lung cancer Maternal Aunt Ovarian cancer Maternal Grandmother History of breast cancer Family/Other Mental health disorder Substance use disorder Surgical History Surgical History Hx of hand surgery Hx of cystoscopy Hx of cystoscopy Hx of section History of loop electrical excision procedure (LEEP) Hx of tubal ligation H/O abdominal hysterectomy Social History Social History Housing: Apartment Are you a primary ocular care aide to a significant other at home: No Do you presently have visiting nurse or other home services: No Alcohol intake: former Comment: all counts correct Patient Tobacco Use Status: Current everyday Tobacco user Tobacco use type: Cigarette Cigarettes Per Day: 4 Years Smoked: 31 e-Cigarette/Vaping Use: Never Used Second Hand Smoke Exposure: No service: No Current occupational status: unemployed Current occupation: right hand Cognitive needs: No Hearing needs: No Vision needs: No Meds Allergies Allergy/AdvReac Type Severity Reaction Status Date / Time acetaminophen [ACETAMINOPHEN] AdvReac Intermediate INCREASES Verified 05/24/23 12:23 INTERSTITIAL CYSTITIS/vomiting Home Medications Medication Instructions Recorded Confirmed Last Taken Type paroxetine HCl 40 mg tablet 40 mg PO BEDTIME 11/18/20 05/24/23 Unknown History paroxetine HCl 20 mg tablet 20 mg PO BEDTIME 04/17/22 05/24/23 Unknown History buprenorphine 8 mg-naloxone 2 mg 10 mg sublingual DAILY 08/14/22 05/24/23 Unknown History sublingual film (Suboxone) dextroamphetamine-amphetamine 20 1 tab PO TID 08/14/22 05/24/23 Unknown History mg tablet Exam Height,Weight and Vital Signs: Height 4 ft 11 in Weight 54.885 kg Last Vital Signs Pulse 67 05/24/23 12:09 Resp 20 05/24/23 12:09 BP 115/57 L 05/24/23 12:09 Pulse Ox 98 05/24/23 12:09 O2 Del Method Room Air 05/24/23 12:09 Pertinent Lab Results Pertinent Lab Results: Laboratory Tests 05/24/23 12:54 WBC 6.8 RBC 5.06 Hgb 15.4 Hct 46.0 MCV 90.9 MCH 30.4 MCHC 33.5 RDW 14.1 Plt Count 296 MPV 10.5 Absolute Nucleated RBC 0.000 Nucleated RBC % (auto) 0.0 Sodium 141 Potassium 4.1 Chloride 107 Carbon Dioxide 32 H Anion Gap 6 L BUN 12 Creatinine 0.67 Estim Creat Clear Calc 82.6 Estimated GFR > 60 Random Glucose 74 Calcium 8.9 D Narrative Narrative: EKG 05/2023 Vent. Rate : 057 BPM Atrial Rate : 057 BPM P-R Int : 176 ms QRS Dur : 082 ms QT Int : 422 ms P-R-T Axes : 054 110 062 degrees QTc Int : 410 ms Sinus bradycardia Right axis deviation Abnormal ECG No previous ECGs available Assessment and Plan Assessment Anesthesia Assessment: Chart Reviewed Documented by User: Suzanne Branch MD 06/13/23 08:17 PMF Active Problems Active Problems: All Active Problems (Updated 06/13/23 @ )7:19 by Suzanne Branch MD) Cervical radiculopathy (Acute) Cubital tunnel syndrome on right (Acute) Neck pain (Acute) Ulnar neuropathy at wrist (Acute) Blurry vision (Acute) Physical exam (Acute) Hand numbness (Acute) Right Lesion of female perineum (Acute) Bacterial vaginosis (Acute) Well woman exam (Acute) Mild recurrent major depression (Acute) Fibromyalgia (Acute) Hospital discharge follow-up (Acute) Right shoulder pain (Acute) COVID-19 (Acute) Finger injury (Acute) Family history of hypertension (Acute) Polyarthralgia (Acute) Smoker Past Medical History Medical History Opiate dependence Family history of hypertension Polyarthralgia Ganglion cyst of dorsum of left wrist JAME III (cervical intraepithelial neoplasia grade III) with severe dysplasia Hx of migraine headaches History of anxiety History of depression PTSD (post-traumatic stress disorder) H/O bipolar disorder Interstitial cystitis History of fibromyalgia Family History Family History Mother Lung cancer Maternal Aunt Ovarian cancer Maternal Grandmother History of breast cancer Family/Other Mental health disorder Substance use disorder Family history of problems with anesthesia: No Surgical History Surgical History Hx of hand surgery Hx of cystoscopy Hx of cystoscopy Hx of section History of loop electrical excision procedure (LEEP) Hx of tubal ligation H/O abdominal hysterectomy History of Problems with Anesthesia: No Social History Social History Housing: Apartment Are you a primary ocular care aide to a significant other at home: No Do you presently have visiting nurse or other home services: No Alcohol intake: former Comment: all counts correct Patient Tobacco Use Status: Current everyday Tobacco user Tobacco use type: Cigarette Cigarettes Per Day: 4 Years Smoked: 31 e-Cigarette/Vaping Use: Never Used Second Hand Smoke Exposure: No service: No Current occupational status: unemployed Current occupation: right hand Cognitive needs: No Hearing needs: No Vision needs: No Meds Allergies Allergy/AdvReac Type Severity Reaction Status Date / Time acetaminophen [ACETAMINOPHEN] AdvReac Intermediate INCREASES Verified 05/24/23 12:23 INTERSTITIAL CYSTITIS/vomiting Home Medications Medication Instructions Recorded Confirmed Last Taken Type paroxetine HCl 40 mg tablet 40 mg PO BEDTIME 11/18/20 05/24/23 Unknown History paroxetine HCl 20 mg tablet 20 mg PO BEDTIME 04/17/22 05/24/23 Unknown History buprenorphine 8 mg-naloxone 2 mg 10 mg sublingual DAILY 08/14/22 05/24/23 Unknown History sublingual film (Suboxone) dextroamphetamine-amphetamine 20 1 tab PO TID 08/14/22 05/24/23 Unknown History mg tablet Exam Height,Weight and Vital Signs: Height 4 ft 11 in Weight 54.885 kg Last Vital Signs Pulse 67 05/24/23 12:09 Resp 20 05/24/23 12:09 BP 115/57 L 05/24/23 12:09 Pulse Ox 98 05/24/23 12:09 O2 Del Method Room Air 05/24/23 12:09 Vital Signs Temp Pulse Resp BP Pulse Ox O2 Del Method 06/13/23 06:39 97.9 F 65 18 111/63 94 Room Air Pertinent Lab Results Pertinent Lab Results: Laboratory Tests 05/24/23 12:54 WBC 6.8 RBC 5.06 Hgb 15.4 Hct 46.0 MCV 90.9 MCH 30.4 MCHC 33.5 RDW 14.1 Plt Count 296 MPV 10.5 Absolute Nucleated RBC 0.000 Nucleated RBC % (auto) 0.0 Sodium 141 Potassium 4.1 Chloride 107 Carbon Dioxide 32 H Anion Gap 6 L BUN 12 Creatinine 0.67 Estim Creat Clear Calc 82.6 Estimated GFR > 60 Random Glucose 74 Calcium 8.9 D Airway Mallampati Class: II TM Dist: >3cm Neck ROM: Full Denture: Upper and Lower Loose/Missing/Broken Teeth: Yes (Edentulous. Left dentures at home) Heart: RRR Lungs: CTAB Assessment and Plan Assessment Anesthesia Assessment: Anesthesia Plan Discussed Final Anesthetic Review Family History of Problems with Anesthesia: No History of Problems with Anesthesia: No NPO: Yes ASA Class: II Final Preanesthetic Review: No Changes in Pt Med Stat, Meds/Allgs Chart Reviewed, Consent Obtained/Reviewed and Anes Risks/Benef Reviewed Patient Risk: Low Procedure Risk: Low Assessment/Block/Sedation in SS: Assess/Block/Sedation-SS Anesthetic Plan Anesthetic Plan: GA Disposition: Standard PACU
[2023-06-13] VITALS (12 sets, daily range): BP systolic 111–151; BP diastolic 63–93; PULSE 65–91; RESP 16–22; TEMP 36.6–36.7; O2SAT 93–100; BMI 24.6
--- NOTE | ~2023-06-13 | FL_ITS ---
EXAMINATION: XR FLUOROSCOPY WITH IMAGES CLINICAL INFORMATION: C5-C6, C6-C7 ACDF. COMPARISON: Cervical spine CT March 2023 TECHNIQUE: Fluoroscopy Supervised By: Dr. Joe Cespedes. Fluoroscopy Time: 0.1 minute. Cumulative Dose: 2.46 mGy. DAP: 0.452 Gycm2. Images: 2. FINDINGS: Images demonstrate new ACDF hardware at C5-C6 and C6-C7 FL/FL guidance in OR IMPRESSION: Fluoroscopy guidance for cervical spine surgery
[2023-06-13] MEDS: Lactated Ringers 1,000 ML 100 ML IVCONT (06:44)
[2023-06-13] MEDS: Gabapentin 300 MG CAPSULE PO (06:44)
[2023-06-13] MEDS: methocarbamoL 750 MG TABLET PO (06:44)
--- NOTE | 2023-06-13 07:01 | MHC.SHP ---
Pre-Procedural Eval Section A Date of Service: 06/13/23 Section B Chief Complaint: Radiculopathy, cervical region Allergies: Allergies Allergy/AdvReac Type Severity Reaction Status Date / Time acetaminophen [ACETAMINOPHEN] AdvReac Intermediate INCREASES Verified 05/24/23 12:23 INTERSTITIAL CYSTITIS/vomiting Review of Systems Sugical H&P ROS: Negative: Constitution, Cardiovascular, Respiratory, Neurological, Psychiatric, Hem-Onc, Allergic/Immunologic, Gastrointestinal, Genitourinary, Musculoskeletal, Integumentary, Endocrine and Eyes/Ears/Nose/Throat Exam Surgical H&P Exam: Not Evaluated: HEENT, Not Evaluated: Heart, Not Evaluated: Lungs, Not Evaluated: Extremities, Not Evaluated: Abdomen, Not Evaluated: Skin and Not Evaluated: Neurological Plan Diagnosis/Plan: Unchanged I have reviewed the history and physical and performed a pertinent physical examination on my patient. No changes have occurred unless specified. Plan remains the same, C5-6, C6-7 ACDF. Time Spent With Patient Time: Total time managing care of this patient today _10___ minutes.
--- NOTE | 2023-06-13 09:28 | PM.DS ---
DS: Providers Provider Date of Service: 06/13/23 Date of discharge: 06/13/23 Primary care physician: Mee Villegas MD Admitting clinician: Joe Cespedes DS: Diagnosis Discharge Diagnosis (1) Cervical radiculopathy: Status: Acute DS: Summary Time Attestation Discharge coordination time: Less than 30 minutes Quality: Safe Use of Opioids Does Pt have an Active Cancer Diagnosis on the Problem List?: No Quality: Stroke Does the patient have a stroke diagnosis?: No Physical Exam Vital Signs: Vital Signs: Last Vital Signs Temp 97.9 F 06/13/23 06:39 Pulse 65 06/13/23 06:39 Resp 18 06/13/23 06:39 BP 111/63 06/13/23 06:39 Pulse Ox 94 06/13/23 06:39 O2 Del Method Room Air 06/13/23 06:39 BMI result Body Mass Index 24.6 Discharge Plan Discharge Patient Disposition: Home, Self-Care Referrals: Mee Cason MD [Primary Care Provider] - 1 Week Discharge Medications: New oxycodone 5 mg tablet 5 mg PO Q4H PRN (Reason: pain) Qty: 30 0RF Rx Instructions: Partial Fill upon patient request. Continued (DME) Wrist Brace - one Misc See Rx Instructions .Route Qty: 1 0RF Rx Instructions: As directed dextroamphetamine-amphetamine 20 mg tablet 1 tab PO TID paroxetine HCl 40 mg tablet 40 mg PO BEDTIME Rx Instructions: take w/20 mg tablet for total of 60 mg paroxetine HCl 20 mg tablet 20 mg PO BEDTIME Rx Instructions: take with 40 mg tablet for total of 60 mg Held buprenorphine-naloxone [Suboxone] 8-2 mg film 10 mg sublingual DAILY Hold Instructions: Resume on 06/20/23. resume in one week Discharge Orders: Discharge Order (Routine); Ordered 06/13/23 Ordered By: Ryan Angelo Diet: Advance to usual diet Activity on Discharge: As tolerated Activity Restrictions/Additional Instructions: After your spinal surgery we ask you to observe the following restrictions/guidelines: Activity: It is normal to feel some discomfort as you increase your activity, but that will improve with time. We ask you avoid heavy lifting or acitivities that cause pain. As a general rule, 8lbs is a safe limit for lifting right after surgery. Walk as much as you feel comfortable but not to exhaustion. You will feel extra tired the first few days after surgery. Stay well hydrated. It is OK to walk up and down stairs You may return to driving when you are off narcotics (such as vicodin, oxycodone, dilaudid, etc), and you are back to normal functional capacity. If you have any concerns please check with office before driving. Return to work is specific to each patient and each surgery, so please speak with your doctor/PA at first follow up. Please bring paperwork such as FMLA at that time if you need it filled out. Medications: For optimum pain control, it is best to start with a combination of 500 mg of Tylenol every 4 hours with 600 mg of Motrin every 8 hours, and use narcotics as needed in between for breakthrough pain. We will give you a short supply of narcotics after surgery (usually one weeks worth). If you need more please call the office but do not use more than prescribed. You will need to give our office 48 hours notice if you need narcotics refilled and we do not fill narcotics on weekends or evenings. If you are on a narcotic, it is a good idea to take a stool softener such as colace or senna to avoid constipation If you take blood thinner such as aspirin, Plavix, Coumadin, Effient, Eliquis etc for conditions such as Afib, DVT, Pulmonary embolus, coronary disease, stents etc please speak with your surgeon about specific details as to when you can resume these medications. You can resume NSAIDs on post op day 1 (eg: Motrin, Naproxen, etc). Follow up: Please call the office, , after surgery to arrange a 3 week follow up for wound check. Wound Care: You may remove your dressing on the first day after surgery. ?You may ?leave open to air. Please do not remove the steri strips underneath. they will fall off on their own in one week. IT IS NORMAL FOR THE WOUND TO OOZE OR BE BLOODY FOR A FEW DAYS AFTER SURGERY. ?IF THIS HAPPENS JUST PLACE NEW DRESSING OVER IT TO AVOID STAINING CLOTHES. You may shower on post op day # 1 We ask that you do not let the water soak the wound. If it does get wet, just towel dry lightly. Please do not scrub your incision or place any type of chemical/ointment on the wound. No tub baths, pools or jacuzzis for one month. If you have any leaking or redness from your wound, or fevers, please call office
--- NOTE | 2023-06-13 10:04 | W.PM.OPN ---
Operative Note Operative Note Date of Service: 06/13/23 Narrative: Preoperative Diagnosis: Chronic neck pain and cervical radiculopathy Procedure: C5-C6, C6-C7 Anterior discectomy, arthrodesis and implantation cage ; C5-7 anterior instrumentation ; local autograft; microscope Informed Consent was obtained for this operation. I have explained the nature, purpose and benefits of the operation. I have discussed the risks and benefit of the operation including possible complications or adverse events with patient/family. Alternative(s) were discussed with the patient with their relative benefits and risks as well as the consequences of not accepting the operation were included in obtaining consent. Surgeon: GABO GONZALEZ MD, PHD Procedure Assisted By: Ryan CONTRERAS Description of Procedure: This 43-year-old female presented regarding back pain and a right cervical radiculopathy. An MRI shows severe degenerative disc disease C5-C6 and C6-C7 with C5-C6 shows a large extruded disc herniation compressing the spinal cord. She was offered an anterior diskectomy and fusion of the above-mentioned levels. The procedure complications were explained. The patient was consented. The patient was brought to the operating room and endotracheally intubated. The patient was put in supine position with slight extension of the neck. Prep and drape was done followed by timeout. A mid cervical incision was made followed by opening of the platysma. The prevertebral fascia was reached following the natural planes while the physician assistant clinical director provided manual retraction. The prevertebral fascia was opened to expose the disc space. A spinal needle was placed in the disk space to confirm the correct level with xray. The longus colli muscles were released bilaterally and a self retaining retractor was inserted. Two [place] pins were placed in the C5 and C6 vertebral bodies and distraction was give over the interspace. The discectomy was completed toward the posterior annulus of the disc. The microscope was brought in. The remainder of the discectomy was completed. The posterior ligament was opened and resected to expose the underlying dura. Several large disc fragments were removed that were laying over the left paramedian part of the dura. Osteophytes were resected from the body of C5-C6 and saved for autograft. Bilateral foraminotomies were done. The endplates were prepared after which a 6 mm cage filled with autograft was inserted into the disc space. A separate attached plate was locked down with 2 x 12 mm screws as anterior instrumentation. Then attention was turned to C6-7 interspace. A [place] pin was placed in the body of C7 and distraction was giving over the interspace. A diskectomy was done towards the posterior longitudinal ligament. The ligament was opened and resected to expose the underlying dura. Several a osteophytes were resected from the body of C6 and C7 to decompress the spinal cord. A bilateral foraminotomy was done. Significant foraminal stenosis was present on the left side. A 6 mm cage filled with autograft was inserted into the disc space. A separate attached plate was locked down with 2 x 12 mm screws is anterior instrumentation. Final x-rays in AP and lateral projection showed a satisfactory position of the implants and anterior instrumentation. The physician assistant clinical director took over. The [place] pin was removed. Hemostasis was done. He closed the incision in 2 layers with a 3-0 Vicryl. Steri-Strips used to approximate incision. An OpSite with Tegaderm was used to cover the incision. All sponge and needle counts were correct. Patient was extubated and transported in stable is to recovery room. Anesthesia: General Estimated Blood Loss (ml): 20 mL Duration of Surgery: 85 minutes Postoperative Plan: Discharge home Complications: None
[2023-06-13] MEDS: fentaNYL citrate/PF 100 MCG/2 ML VIAL 25 MCG IVPUSH ×4 (10:10→10:25)
[2023-06-13] MEDS: oxyCODONE HCl Immed Release 5 MG TABLET PO (10:12)
== END 2023-06-13 12:02 | disposition home or self-care (01) ==
PROVIDERS: Anesthesiology; PCP Internal Medicine; Visit Provider Neurological Surgery
PROC: (CPT 22551; principal; 2023-06-13 07:30)
DX: M54.12 Radiculopathy, cervical region (principal); G89.29 Other chronic pain; M54.2 Cervicalgia; Z87.828 Personal history of other (healed) physical injury and trauma; R20.0 Anesthesia of skin; R20.2 Paresthesia of skin; M79.7 Fibromyalgia; M25.50 Pain in unspecified joint; G43.909 Migraine, unspecified, not intractable, without status migrainosus; F43.10 Post-traumatic stress disorder, unspecified; F90.9 Attention-deficit hyperactivity disorder, unspecified type; F32.A Depression, unspecified; F11.20 Opioid dependence, uncomplicated; Z79.899 Other long term (current) drug therapy; Z88.8 Allergy status to other drugs, medicaments and biological substances; F17.210 Nicotine dependence, cigarettes, uncomplicated
CPT/HCPCS: 22551; 22552; 22853 ×2; 20936; 22845; 36415; 80048; 85027; 93005; C1713; J0690; J1100; J2250; J2405; J2704; J3010

== ENCOUNTER → 2023-06-13 06:05 | Outpatient (BNV) | payer OTHER, SELFPAY | PROVIDERS: PCP Internal Medicine; Visit Provider Physician Assistant | DX: M54.12 Radiculopathy, cervical region (principal) | CPT/HCPCS: 20936; 22551; 22552; 22845; 22853; 99499 ==

== ENCOUNTER 2023-06-21 09:02 | Outpatient (REF) | payer OTHER, SELFPAY | END 2023-06-21 09:03 | disposition home or self-care (01) | LOC: HO.HOSX 09:02 | PROVIDERS: PCP Internal Medicine; Visit Provider Physician Assistant | DX: M54.12 Radiculopathy, cervical region (principal); Z47.89 Encounter for other orthopedic aftercare; Z98.890 Other specified postprocedural states | CPT/HCPCS: 99212 ==

== ENCOUNTER 2023-06-21 09:02 | Outpatient (AMB) | payer OTHER, SELFPAY ==
--- NOTE | 2023-06-21 09:07 | MHC.OFFVIS ---
Intake Intake Visit Reasons: incision check Hr Advisor Required: No Allergies acetaminophen [ACETAMINOPHEN] Adverse Reaction (Intermediate, Verified 05/24/23 12:23) INCREASES INTERSTITIAL CYSTITIS/vomiting PFSH Medical History Opiate dependence Family history of hypertension Polyarthralgia Ganglion cyst of dorsum of left wrist JAME III (cervical intraepithelial neoplasia grade III) with severe dysplasia Hx of migraine headaches History of anxiety History of depression PTSD (post-traumatic stress disorder) H/O bipolar disorder Interstitial cystitis History of fibromyalgia Surgical History Hx of hand surgery Hx of cystoscopy Hx of cystoscopy Hx of section History of loop electrical excision procedure (LEEP) Hx of tubal ligation H/O abdominal hysterectomy Family History Mother Lung cancer Maternal Aunt Ovarian cancer Maternal Grandmother History of breast cancer Family/Other Mental health disorder Substance use disorder Social History Housing: Apartment Are you a primary furnace caretaker to a significant other at home: No Do you presently have visiting nurse or other home services: No Alcohol intake: former Comment: all counts correct Patient Tobacco Use Status: Current everyday Tobacco user Tobacco use type: Cigarette Cigarettes Per Day: 4 Years Smoked: 31 e-Cigarette/Vaping Use: Never Used Second Hand Smoke Exposure: No service: No Current occupational status: unemployed Current occupation: right hand Cognitive needs: No Hearing needs: No Vision needs: No Assessment & Plan Assessment & Plan (1) Cervical radiculopathy: Code(s): M54.12 - Radiculopathy, cervical region Plan Procedure: C5-C6, C6-C7 ACDF Ginette comes in today for her 1st postoperative visit. She reports she is very satisfied with the surgery and feels much better than she did pre-operatively. The patient reports she is up walking around and completing the majority of her ADLs. She reports that she no longer suffers from shooting pains down her bilateral arms. She still reports mild pain in her posterior neck, with good relief with pain medications. No neurological deficits. Patient is able to ambulate well, rises from a seated position without difficulty. The patient still had her postoperative bandage on, with Steri-Strips underneath. These were removed, yielding a clean, well approximated, appropriately healing incision site. We will follow-up with the patient in 6 weeks for her 2nd postoperative visit. At that time we will get x-rays to review with the patient. Rogers Cespedes MD,PhD [facility] Orders: Orders XR cervical spine 4V Today M54.12 - Radiculopathy, cervical region Coding Level of Care Code Global (04146) Diagnoses Cervical radiculopathy M54.12
== END 2023-06-21 09:19 | disposition home or self-care (01) ==
PROVIDERS: PCP Internal Medicine; Visit Provider Physician Assistant
DX: M54.12 Radiculopathy, cervical region (principal)
CPT/HCPCS: 99024

== ENCOUNTER 2023-08-02 08:58 | Outpatient (AMB) | payer OTHER, SELFPAY ==
--- NOTE | 2023-08-02 09:24 | HO.SPINEOV ---
Intake Intake Visit Reasons: 2nd post op with xrays Allergies acetaminophen [ACETAMINOPHEN] Adverse Reaction (Intermediate, Verified 05/24/23 12:23) INCREASES INTERSTITIAL CYSTITIS/vomiting Assessment & Plan Assessment & Plan (1) Cervical radiculopathy: Code(s): M54.12 - Radiculopathy, cervical region Plan Procedure: C5-6, C6-7 ACDF Ginette comes in today for her 1st postoperative visit. She reports she is very satisfied with the surgery but had some questions regarding postoperative healing. I answered all of her questions to the best of my ability. She states that she has no significant deficits throughout the day, and is back to living it mostly normal life. She reports that she no longer suffers from right sided burning or pain, but does still have some residual numbness in her right hand. She also endorses some posterior neck pain that is persistent since surgery. We discussed the use of [id number] pain patches/creams to help address this issue. No neurological deficits. Patient is able to ambulate well, rises from a seated position without difficulty. Incision sites are closed, well healing, with no signs of drainage. There is no need for continued routine follow-up with Ginette. She may follow-up on an as-needed basis. I did send her in a prescription for lidocaine patches to help ease her posterior neck pain. Rogers Cespedes MD,PhD [facility] Medications: New lidocaine 5% leave on most painful area for up to 12 hrs 1 patch topical DAILY 15 ea 0RF Coding Level of Care Code Global (82249) Diagnoses Cervical radiculopathy M54.12
== END 2023-08-02 09:38 | disposition home or self-care (01) ==
PROVIDERS: PCP Internal Medicine; Visit Provider Physician Assistant
DX: M54.12 Radiculopathy, cervical region (principal)
CPT/HCPCS: 99024

== ENCOUNTER → 2023-08-02 08:58 | Outpatient (BNVA) | payer OTHER, SELFPAY | PROVIDERS: PCP Internal Medicine; Visit Provider Physician Assistant ==

== ENCOUNTER 2023-08-02 08:59 | Outpatient (REF) | payer OTHER, SELFPAY ==
--- NOTE | ~2023-08-02 | XR_ITS ---
EXAMINATION: XR CERVICAL SPINE CLINICAL INFORMATION: Cervical radiculopathy. COMPARISON: 06/13/2023 fluoroscopic guidance in OR images, CT cervical spine 04/08/2023. TECHNIQUE: 4 views of the cervical spine were obtained. FINDINGS: Redemonstration of ACDF hardware at C5-C6 and C6-C7. Hardware appears intact. Moderate multilevel spondylosis in the remainder of the cervical spine most notable at C7-T1. Alignment stable on flexion and extension views. XR/XR cervical spine 4V IMPRESSION: Status post ACDF at C5-C6 and C6-C7.
== END 2023-08-02 09:00 | disposition home or self-care (01) ==
LOC: HO.HOSX 08:59
PROVIDERS: Visit Provider Physician Assistant
DX: M54.12 Radiculopathy, cervical region (principal)
CPT/HCPCS: 72050; 99212

== ENCOUNTER 2024-02-02 15:18 | Emergency (ER) | payer OTHER, SELFPAY ==
[2024-02-02] VITALS (9 sets, daily range): BP systolic 96–121; BP diastolic 54–70; PULSE 84–97; RESP 14–21; TEMP 36.9–39.3; O2SAT 93–99; BMI 24.4
--- NOTE | 2024-02-02 | ECG_ITS ---
Test Reason : dizziness Blood Pressure : / mmHG Vent. Rate : 080 BPM Atrial Rate : 080 BPM P-R Int : 168 ms QRS Dur : 084 ms QT Int : 360 ms P-R-T Axes : 051 115 044 degrees QTc Int : 415 ms Normal sinus rhythm Right axis deviation Septal infarct (cited on or before 02-FEB-2024) Abnormal ECG When compared with ECG of 24-MAY-2023 12:35, No significant change was found Referred By: Generic ED Physician Electronically Signed By:DEJUAN CAMPOS
--- NOTE | ~2024-02-02 | XR_ITS ---
EXAMINATION: XR CHEST CLINICAL INFORMATION: Fever COMPARISON: None available. TECHNIQUE: 2 views of the chest were obtained. FINDINGS: Cardiomediastinal silhouette is normal. There are patchy left basilar airspace opacities with some associated bronchial wall thickening. No large effusion or pneumothorax. Orthopedic hardware in the cervical spine. XR/XR chest 2V IMPRESSION: Patchy left basilar airspace opacities with associated bronchial wall thickening. Findings may represent an infiltrate in the setting of fever.
--- NOTE | ~2024-02-02 | CT_ITS ---
EXAMINATION: CT ANGIOGRAM HEAD CT ANGIOGRAM NECK CLINICAL INFORMATION: Dizziness, difficulty walking COMPARISON: None. TECHNIQUE: Test bolus sequences followed by intravenous administration 70 mL of Omnipaque 350. Helical imaging was performed in the axial plane from the aortic arch to the skull vertex. Delayed postcontrast imaging of the head was also performed. The data was processed at the textile technologist's workstation for generation of MIP sequences. Angled MIPs and volume rendered reformatted images were also generated at an offline 3D workstation. Stenoses are assessed in accordance with Loera et al. Quantification of Carotid Stenosis on CT Angiography. AJR 2006. 27(1):13-19. [address] CT examination was performed using dose optimization techniques as appropriate, variously including the following: *Automated exposure control *Adjustment of mA and/or kV according to patient size (this includes techniques or standardized protocols for targeted exams where dose is matched to indication/reason for exam; i.e. extremities or head) *Use of iterative reconstruction technique DLP: 2027 mGy-cm FINDINGS: CT HEAD: The ventricles and sulci are normal in size and configuration without significant volume loss or hydrocephalus. There is no abnormal attenuation within the brain parenchyma. No territorial loss of finley-white differentiation. No acute intracranial hemorrhage or extra-axial fluid collection. No mass lesion, significant mass effect, or herniation pattern. No pathologic intra-axial enhancement or regional oligemia. The orbits are grossly normal. Leftward nasal septal deviation with bony spur impinging on the left inferior nasal turbinate. Paranasal sinuses and mastoid air cells are well aerated. Asymmetric sclerosis of the right mandibular condyle head with osseous spurring and subchondral cystic change likely reflecting advanced osteoarthrosis for age. CTA HEAD: No hemodynamically significant stenosis or occlusion in the anterior or posterior circulation. No aneurysms and no high flow vascular malformations. Timing of the contrast bolus allows assessment of the major dural venous sinuses, which all opacify normally CTA NECK: Classic 3 vessel branching pattern of the aortic arch. Origins of the great vessels are widely patent. The common carotid arteries are widely patent. The carotid bifurcations and bilateral internal carotid arteries are normal. The vertebral arteries are codominant The vertebral artery ostia are widely patent. Both vertebral arteries are widely patent throughout their extracranial cervical course. CT NECK: Enlargement of the main pulmonary artery suggestive of pulmonary hypertension. The patient is edentulous. Symmetric enlargement of the palatine tonsils presumably reactive. Punctate calcified right palatine tonsillolith. C5-C6 and C6-C7 ACDF with sclerosis of the C6 and to a lesser extent C5 and C7 vertebral bodies. Suspected nodule along the posterior margin of the right thyroid gland, noting streak artifact through this region limits diagnostic assessment; recommend correlation with thyroid ultrasound for confirmation. CT/CT angio head neck IMPRESSION: 1. No acute intracranial findings. 2. No acute arterial occlusion or hemodynamically significant stenosis within the head or neck. 3. Enlargement of the main pulmonary artery suggestive of pulmonary hypertension. 4. Suspected nodule along the posterior margin of the right thyroid gland, noting streak artifact through this region limits diagnostic assessment; recommend correlation with thyroid ultrasound for confirmation.
--- NOTE | 2024-02-02 15:31 | ED_ITS ---
HPI - General Adult General Chief complaint: Dizziness Stated complaint: whooshing sound in ear, dizzy Time Seen by Provider: 02/02/24 16:21 History of Present Illness ED Provider: Ariana CHRISTIAN narrative: The patient is a 43-year-old says that since getting up this morning she has had a sense of whooshing in her ears and a sense of dizziness that is interfering with her ability to walk. Also feels she is having double vision. She says that she has had symptoms like this in the past but never in this combination and never this severely. No fever, sweats, chills. She reports some mild headache. The patient is a smoker. The patient is on Suboxone. Related Data Home Medications ?Medication ?Instructions ?Recorded ?Confirmed paroxetine HCl 40 mg tablet 40 mg PO BEDTIME 11/18/20 05/24/23 paroxetine HCl 20 mg tablet 20 mg PO BEDTIME 04/17/22 05/24/23 buprenorphine 8 mg-naloxone 2 mg 10 mg sublingual DAILY 08/14/22 05/24/23 sublingual film (Suboxone) dextroamphetamine-amphetamine 20 1 tab PO TID 08/14/22 05/24/23 mg tablet Previous Rx's ?Medication ?Instructions ?Recorded Brace,wrist (Wrist Brace - one) #1 ea 11/08/22 oxycodone 5 mg tablet 5 mg PO Q4H PRN pain #30 tabs 06/13/23 lidocaine 5 % topical patch 1 patch topical DAILY #15 ea 08/02/23 doxycycline monohydrate 100 mg 100 mg PO BID #14 caps 02/02/24 capsule Allergies Allergy/AdvReac Type Severity Reaction Status Date / Time acetaminophen [ACETAMINOPHEN] AdvReac Intermediate INCREASES Verified 02/02/24 15:36 INTERSTITIAL CYSTITIS/vomiting Review of Systems 2 Review of Systems: Yes all other systems are reviewed and are negative [facility] Past Medical History Medical History Opiate dependence Family history of hypertension Polyarthralgia Ganglion cyst of dorsum of left wrist JAME III (cervical intraepithelial neoplasia grade III) with severe dysplasia Hx of migraine headaches History of anxiety History of depression PTSD (post-traumatic stress disorder) H/O bipolar disorder Interstitial cystitis History of fibromyalgia Surgical History Hx of hand surgery Hx of cystoscopy Hx of cystoscopy Hx of section History of loop electrical excision procedure (LEEP) Hx of tubal ligation H/O abdominal hysterectomy Family History Family History Mother Lung cancer Maternal Aunt Ovarian cancer Maternal Grandmother History of breast cancer Family/Other Mental health disorder Substance use disorder Social History Social History Housing: Apartment Are you a primary health care specialist to a significant other at home: No Do you presently have visiting nurse or other home services: No Alcohol intake: former Comment: all counts correct Patient Tobacco Use Status: Current everyday Tobacco user Tobacco use type: Cigarette Cigarettes Per Day: 4 Years Smoked: 31 Smoked in Last 30 Days: Yes e-Cigarette/Vaping Use: Never Used Second Hand Smoke Exposure: No Use of substances other than those prescribed or required for medical reasons: No Advance Directives: No Advance Directives Information Provided: No Do you have a plan to hurt others: No Plan Patient : No service: No Current occupational status: unemployed Current occupation: right hand Cognitive needs: No Hearing needs: No Vision needs: No Physical Exam ED Vital Signs: Vital Signs - 24 hr 02/02/24 15:31 02/02/24 16:16 02/02/24 16:18 Temperature 98.4 F Pulse Rate 97 84 87 Respiratory Rate 18 Blood Pressure 121/70 108/67 102/66 Pulse Oximetry 99 Oxygen Delivery Method Room Air 02/02/24 16:19 02/02/24 20:16 02/02/24 21:11 Temperature 102.8 F H 101.3 F H Pulse Rate 87 97 90 Respiratory Rate 14 21 H Blood Pressure 104/57 L 96/56 L 107/57 L Pulse Oximetry 93 93 Oxygen Delivery Method Room Air Room Air 02/02/24 21:21 02/02/24 22:21 02/02/24 23:50 Temperature 100.4 F 98.9 F Pulse Rate 92 91 86 Respiratory Rate 16 17 14 Blood Pressure 104/54 L 101/59 L Pulse Oximetry 93 95 Oxygen Delivery Method Room Air Room Air BMI result Body Mass Index 24.4 Const Other: The patient is chronic ill-appearing 43-year-old. She looks older than her age. She does not appear in obvious distress. HENMT Other: Face is symmetrical. The patient is edentulous. Mucous membranes moist. Tongue is midline. Pharynx is normal. The left tympanic membrane is normal. The right tympanic membrane is obscured by cerumen in the external auditory meatus. Eyes Other: Pupils are small, 2-3 mm. They do not significantly dilate in a darkened room. They react to light. Pupils are equal. Extraocular movements are intact. No significant nystagmus. Neck Other: No cervical adenopathy. Moving her neck easily. Resp Effort & Inspection: normal respiratory effort Auscultation: clear to auscultation bilaterally Cardio Rate: regular rate Rhythm: regular rhythm Heart sounds: S1 normal heart sound present and S2 normal heart sound present Skin Other: The skin is dry and unremarkable Neuro Other: The patient is awake alert with a normal mental status, normal orientation. Pupils are on the small side but equal and reactive. Extraocular movements are intact. No significant nystagmus. The face is symmetrical. Speech is clear. Strength is symmetrical in the extremities. There is no pronator drift. Finger-nose is normal. Heel-frank is normal. She seems mildly unsteady on her feet. Extrem Other: No calf swelling or tenderness, no asymmetry, no edema Course Course Course Narrative: This is a rapid medical exam. deferred additional HPI, ROS, PE to primary provider. 43 yo female with history of polarthalgia, substance abuse, PTSD, C5- C7 (surgery 06/13/23), fibromyalgia here with complaints of headache, double vision, dizziness today, sound in ear x months. Also has chronic right UE numbness since cervical surgery Will obtain labs, UA, ur preg VSS -A. Pascucci [employer] Medications Administered Discontinued Medications Generic Name Dose Route Start Last Admin Trade Name Freq PRN Reason Stop Dose Admin Acetaminophen 650 mg 02/02/24 20:22 02/02/24 20:28 Acetaminophen 325 Mg Tablet PO 02/02/24 20:23 650 mg ONCE ONE Administration Albuterol/Ipratropium 3 ml 02/02/24 20:59 02/02/24 21:21 Albuterol/Iprat 2.5/0.5mg 3 Ml Ampul.Neb INHALE 02/02/24 21:00 3 ml ONCE ONE Administration Diphenhydramine HCl 25 mg 02/02/24 16:36 02/02/24 16:39 Diphenhydramine Hcl 50 Mg/Ml Vial IVPUSH 02/02/24 16:37 25 mg ONCE ONE Administration Doxycycline Monohydrate 100 mg 02/02/24 22:36 02/02/24 23:38 Doxycycline Monohydrate 100 Mg Capsule PO 02/02/24 22:37 100 mg ONCE ONE Administration Sodium Chloride 1,000 mls @ 999 mls/hr 02/02/24 16:45 02/02/24 18:45 Ns IV 02/02/24 17:45 Infused .Q1H1M GEMA Infusion Iohexol 100 ml 02/02/24 16:54 02/02/24 16:57 Iohexol 350 Mg/Ml 100 Ml Infus..Btl IV 02/02/24 16:55 70 ml ONCE ONE Administration Ketorolac Tromethamine 10 mg 02/02/24 20:17 02/02/24 20:23 Ketorolac Tromethamine 15 Mg/Ml Vial IVPUSH 02/02/24 20:18 10 mg ONCE ONE Administration Prochlorperazine Edisylate 10 mg 02/02/24 16:36 02/02/24 16:39 Prochlorperazine Edisylate 10 Mg/2 Ml Vial IVPUSH 02/02/24 16:37 10 mg ONCE ONE Administration Medical Decision Making Medical Decision Making [facility] Narrative: The patient is a 43-year-old woman with multiple medical problems who presented with a complaint of a whooshing sound in her ears associated with dizziness, double vision, and being unsteady on her feet. There was no report initially of any infectious symptoms and the patient's initial vital signs were unremarkable. The most significant finding on the patient's exam was that she seemed to have some mild unsteadiness with walking. It was hard to tell if this was volitional. Given the patient's description of a whooshing sound in her ears, headache, double vision and unsteadiness I felt that central nervous system process, possibly posterior circulation ischemia, should be ruled out and therefore I ordered a CT angiogram of the head and neck with IV contrast. The patient was not really presenting as an acute stroke however. The patient was treated symptomatically with IV fluids, prochlorperazine, and diphenhydramine. The patient seemed to fall asleep and there was a long delay in the results of the CT angiogram. When I next went to check on the patient she felt quite warm and she was found to be febrile with a temperature of 102.8 degrees. At that point a chest x-ray was done, blood cultures were sent, a lactate was sent, and a viral swab was sent. The patient has viral swab came back positive for COVID. Patient's chest x-ray shows a possible left basilar airspace opacity potentially representing an infiltrate. The patient's vital signs improved with treatment of her fever. She received additional IV antibiotics and antipyretics. She looks well enough for discharge. She will be discharged on doxycycline for a possible small pneumonia. Her oxygen saturation on room air was adequate. I felt it was probably unlikely she would benefit much from Paxlovid. Lab Data 02/02/24 16:06 02/02/24 16:06 Labs: Lab Results 02/02/24 02/02/24 02/02/24 Range/Units 16:06 16:29 20:40 WBC 7.0 (4.8-10.8) X10*3/uL RBC 4.38 (4.20-5.50) X10*6/uL Hgb 13.6 (12.0-16.0) g/dl Hct 40.1 (37.0-47.0) % MCV 91.6 (80.0-98.0) fL MCH 31.1 (27.0-33.0) pg MCHC 33.9 (31.0-35.0) g/dl RDW 14.0 (11.0-16.0) % Plt Count 263 (160-400) X10*3/uL MPV 9.5 (9.4-12.3) fL Immature Gran % (Auto) 0.3 (0.0-0.4) % Neut % (Auto) 80.4 H (45-73) % Lymph % (Auto) 7.4 L (20-40) % [place] % (Auto) 5.3 (2-11) % Eos % (Auto) 6.3 H (0-4) % Baso % (Auto) 0.3 (0-2) % Lymph # (Auto) 0.5 L (1.2-4.9) X10*3/uL [place] # (Auto) 0.4 (0.1-1.2) X10*3/uL Eos # (Auto) 0.4 (0.0-0.4) X10*3/uL Baso # (Auto) 0.0 (0.0-0.2) X10*3/uL Abs Immat Gran (auto) 0.02 (0.00-0.03) X10*3/uL Absolute Neuts (auto) 5.6 (2.0-8.3) x10*3/uL Absolute Nucleated RBC 0.000 (0.0-0.012) X10*3/uL Nucleated RBC % (auto) 0.0 (0.0-0.2) /100WBC Sodium 138 (135-145) mmol/L Potassium 3.4 (3.3-5.1) mmol/L Chloride 103 (96-108) mmol/L Carbon Dioxide 27 (22-29) mmol/L Anion Gap 11 L (12-20) BUN 15 (9-16) mg/dL Creatinine 0.71 (0.5-1.4) mg/dL Estim Creat Clear Calc 74.5 Estimated GFR > 60 Random Glucose 87 (60-115) mg/dL Lactic Acid 0.6 (0.5-2.0) mmol/L Calcium 9.4 (8.4-10.2) mg/dL Magnesium 1.8 (1.6-2.6) mg/dL Total Bilirubin 0.3 (0.0-1.0) mg/dL Direct Bilirubin 0.1 (0.0-0.5) mg/dL AST 13 (5-31) U/L ALT 8 (0-31) U/L Alkaline Phosphatase 62 (39-117) U/L C-Reactive Protein 0.32 (< or = 0.50) mg/dL Total Protein 7.5 (6.5-8.0) g/dL Albumin 4.3 (3.5-5.0) g/dL Urine Color Yellow Urine Appearance Cloudy Urine pH >= 9.0 (5.0-9.0) Ur Specific [place] 1.020 (1.005-1.025) Urine Protein Negative (Neg-Trace) mg/dL Urine Glucose (UA) Negative (Negative) mg/dL Urine Ketones Negative (Negative) mg/dL Urine Blood Negative (Negative) Urine Nitrite Negative (Negative) Ur Leukocyte Esterase Negative (Negative) Urine Test NEGATIVE (NEGATIVE) Urine Opiates Screen (Not Detect) Ur Buprenorphine Scrn (Not Detect) ng/mL Ur Oxycodone Screen (Not Detect) ng/mL Urine Methadone Screen (Not Detect) ng/mL Urine Fentanyl Screen (Not Detect) Ur Barbiturates Screen (Not Detect) Ur Phencyclidine Scrn (Not Detect) Ur Amphetamines Screen (Not Detect) U Benzodiazepines Scrn (Not Detect) Urine Cocaine Screen (Not Detect) U Marijuana (THC) Screen (Not Detect) Influenza Type A (PCR) NEGATIVE (Negative) Influenza Type B (PCR) NEGATIVE (Negative) RSV RNA Qual (PCR) NEGATIVE (Negative) SARS-CoV-2 RNA (RT-PCR) POSITIVE A (Negative) 02/02/24 Range/Units 20:58 WBC (4.8-10.8) X10*3/uL RBC (4.20-5.50) X10*6/uL Hgb (12.0-16.0) g/dl Hct (37.0-47.0) % MCV (80.0-98.0) fL MCH (27.0-33.0) pg MCHC (31.0-35.0) g/dl RDW (11.0-16.0) % Plt Count (160-400) X10*3/uL MPV (9.4-12.3) fL Immature Gran % (Auto) (0.0-0.4) % Neut % (Auto) (45-73) % Lymph % (Auto) (20-40) % [place] % (Auto) (2-11) % Eos % (Auto) (0-4) % Baso % (Auto) (0-2) % Lymph # (Auto) (1.2-4.9) X10*3/uL [place] # (Auto) (0.1-1.2) X10*3/uL Eos # (Auto) (0.0-0.4) X10*3/uL Baso # (Auto) (0.0-0.2) X10*3/uL Abs Immat Gran (auto) (0.00-0.03) X10*3/uL Absolute Neuts (auto) (2.0-8.3) x10*3/uL Absolute Nucleated RBC (0.0-0.012) X10*3/uL Nucleated RBC % (auto) (0.0-0.2) /100WBC Sodium (135-145) mmol/L Potassium (3.3-5.1) mmol/L Chloride (96-108) mmol/L Carbon Dioxide (22-29) mmol/L Anion Gap (12-20) BUN (9-16) mg/dL Creatinine (0.5-1.4) mg/dL Estim Creat Clear Calc Estimated GFR Random Glucose (60-115) mg/dL Lactic Acid (0.5-2.0) mmol/L Calcium (8.4-10.2) mg/dL Magnesium (1.6-2.6) mg/dL Total Bilirubin (0.0-1.0) mg/dL Direct Bilirubin (0.0-0.5) mg/dL AST (5-31) U/L ALT (0-31) U/L Alkaline Phosphatase (39-117) U/L C-Reactive Protein (< or = 0.50) mg/dL Total Protein (6.5-8.0) g/dL Albumin (3.5-5.0) g/dL Urine Color Urine Appearance Urine pH (5.0-9.0) Ur Specific [place] (1.005-1.025) Urine Protein (Neg-Trace) mg/dL Urine Glucose (UA) (Negative) mg/dL Urine Ketones (Negative) mg/dL Urine Blood (Negative) Urine Nitrite (Negative) Ur Leukocyte Esterase (Negative) Urine Test (NEGATIVE) Urine Opiates Screen Not Detected (Not Detect) Ur Buprenorphine Scrn Positive H (Not Detect) ng/mL Ur Oxycodone Screen Not Detected (Not Detect) ng/mL Urine Methadone Screen Not Detected (Not Detect) ng/mL Urine Fentanyl Screen Not Detected (Not Detect) Ur Barbiturates Screen Not Detected (Not Detect) Ur Phencyclidine Scrn Not Detected (Not Detect) Ur Amphetamines Screen Not Detected (Not Detect) U Benzodiazepines Scrn Not Detected (Not Detect) Urine Cocaine Screen Not Detected (Not Detect) U Marijuana (THC) Screen POSITIVE H (Not Detect) Influenza Type A (PCR) (Negative) Influenza Type B (PCR) (Negative) RSV RNA Qual (PCR) (Negative) SARS-CoV-2 RNA (RT-PCR) (Negative) Independent Interpretation I performed an independent interpretation of an: EKG Interpretation: EKG at 1605 shows normal sinus rhythm at 80 beats per minute. No significant change from previous. Discharge Plan Discharge Clinical Impression: COVID, Dizziness Patient Disposition: Home, Self-Care Instructions: COVID-19 (Coronavirus Disease 2019) (ED) Additional Instructions: You have tested positive for COVID today. Please plan on staying home and isolating yourself. You should plan on staying home for 5 days. If if after 5 days you are feeling better you may go outside but you should wear a mask when encountering other people. There is a question of a possible very small pneumonia on your x-ray. You have therefore been started on the antibiotic doxycycline. Please take this 2 times a day. Drink lot of fluids. Use ibuprofen as needed for fever or discomfort. Stay in touch with your regular doctor for additional advice as needed. Return to the emergency room if significantly worse. Prescriptions: New doxycycline monohydrate 100 mg capsule 100 mg PO BID Qty: 14 0RF No Action (DME) Wrist Brace - one Misc See Rx Instructions .Route Qty: 1 0RF Rx Instructions: As directed oxycodone 5 mg tablet 5 mg PO Q4H PRN (Reason: pain) Qty: 30 0RF Rx Instructions: Partial Fill upon patient request. buprenorphine-naloxone [Suboxone] 8-2 mg film 10 mg sublingual DAILY Hold Instructions: Resume on 06/20/23. resume in one week dextroamphetamine-amphetamine 20 mg tablet 1 tab PO TID paroxetine HCl 40 mg tablet 40 mg PO BEDTIME Rx Instructions: take w/20 mg tablet for total of 60 mg paroxetine HCl 20 mg tablet 20 mg PO BEDTIME Rx Instructions: take with 40 mg tablet for total of 60 mg lidocaine 5 % adhesive patch,medicated 1 patch topical DAILY Qty: 15 0RF Rx Instructions: leave on most painful area for up to 12 hrs Referrals: Mee Cason MD [Primary Care Provider] - (COVID) Interventions: ED Discharge Assessment Last Done: 02/02/24 23:50 Discharge Date/Time: 02/02/24 23:51 Print Language: Peruvian
[2024-02-02 16:11] LABS: MANUAL DIFF FLAG NO
[2024-02-02 16:13] LABS: Basophils Percent Auto 0.3 % (0-2); Eosinophils Absolute Auto 0.4 X10*3/uL (0.0-0.4); Eosinophils Percent Auto 6.3 % (0-4); Hematocrit 40.1 % (37.0-47.0); Hemoglobin 13.6 g/dl (12.0-16.0); Imm Gran Abs Auto 0.02 X10*3/uL (0.00-0.03); Imm Gran Pct Auto 0.3 % (0.0-0.4); Lymphocytes Absolute Auto 0.5 X10*3/uL (1.2-4.9); Lymphocytes Percent Auto 7.4 % (20-40); Mean Corpuscular HGB Conc 33.9 g/dl (31.0-35.0); Mean Corpuscular Hemoglobin 31.1 pg (27.0-33.0); Mean Corpuscular Volume 91.6 fL (80.0-98.0); Mean Platelet Volume 9.5 fL (9.4-12.3); Monocytes Absolute Auto 0.4 X10*3/uL (0.1-1.2); Monocytes Percent Auto 5.3 % (2-11); Neutrophils Absolute Auto 5.6 x10*3/uL (2.0-8.3); Neutrophils Percent Auto 80.4 % (45-73); Platelet Count 263 X10*3/uL (160-400); Red Blood Count 4.38 X10*6/uL (4.20-5.50)
--- NOTE | 2024-02-02 16:20 | PC.NURSE ---
a&ox4. vss and up to date. 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 pt ambulating from triage w/ an extremely unsteady gait. 1:1 assist needed. pt presents to the ED w/ whooshing sound in ear x 6 months. pt verbalizes going to bed normal and waking up w/ increased whooshing in ear, dizziness, headache, blurred vision, numbness/tingling in RUE. face symmetrical. no pronator drift noted. strength equal bilaterally. aside from having an abnormal gait, neuros intact. 20gIV placed in the left AC - labs obtained/sent to lab. ekg performed by tech. orthostatic vital signs performed. urine obtained/sent to lab. pt passed nursing swallow evaluation w/o difficulty. no sob/wob noted. respirations even/unlabored. pt seen by ED provider/aware of plan moving forward. family bedside for support. plan of care ongoing. call casarez placed within reach.
[2024-02-02 16:26] LABS: Alanine Aminotransferase 8 U/L (0-31); Albumin Level 4.3 g/dL (3.5-5.0); Alkaline Phosphatase 62 U/L (39-117); Anion Gap 11 (12-20); Aspartate Amino Transferase 13 U/L (5-31); Bilirubin Direct 0.1 mg/dL (0.0-0.5); Bilirubin Total 0.3 mg/dL (0.0-1.0); Blood Urea Nitrogen 15 mg/dL (9-16); Calcium 9.4 mg/dL (8.4-10.2); Carbon Dioxide 27 mmol/L (22-29); Chloride 103 mmol/L (96-108); Creatinine Clr Calc Pharmacy 74.5; Estimated Glomerular Filt Rate > 60; Glucose Random 87 mg/dL (60-115); Magnesium 1.8 mg/dL (1.6-2.6); Potassium 3.4 mmol/L (3.3-5.1); Sodium 138 mmol/L (135-145); Total Protein 7.5 g/dL (6.5-8.0)
[2024-02-02] MEDS: 0.9 % Sodium Chloride 1,000 ML 999 ML IV (16:38)
[2024-02-02] MEDS: Prochlorperazine Edisylate 10 MG/2 ML VIAL IVPUSH (16:39)
[2024-02-02] MEDS: diphenhydrAMINE HCL 50 MG/ML VIAL 25 MG IVPUSH (16:39)
[2024-02-02 16:43] LABS: Appearance Urine Cloudy; Color Urine Yellow; Glucose Urine UA Negative (Negative); Leukocyte Esterase Urine Negative (Negative); Nitrite Urine Negative (Negative); PH >= 9.0 (5.0-9.0); Urine Blood Negative (Negative); Urine Ketones Negative (Negative); Urine Protein Negative (Neg-Trace)
[2024-02-02 16:45] LABS: UPreg QC Valid YES; Urine Pregnancy NEGATIVE (NEGATIVE)
--- NOTE | 2024-02-02 16:49 | PC.NURSE ---
pt to CT at this time.
[2024-02-02] MEDS: iohexoL 350 MG/ML 100 ML INFUS..BTL IV (16:57)
--- NOTE | 2024-02-02 20:22 | PC.NURSE ---
Dr. Lane notified of rectal temp 102.8 and BP 96/56.
[2024-02-02] MEDS: Ketorolac Tromethamine 15 MG/ML VIAL 10 MG IVPUSH (20:23)
[2024-02-02] MEDS: Acetaminophen 325 MG TABLET 650 MG PO (20:28)
[2024-02-02 20:31] LABS: C Reactive Protein 0.32 mg/dL (< or = 0.50)
[2024-02-02 20:57] LABS: Lactic Acid 0.6 mmol/L (0.5-2.0)
[2024-02-02 21:15] LABS: Amphetamine Screen Urine Not Detected (Not Detect); Barbiturates, Urine Not Detected (Not Detect); Benzodiazepines Screen Urine Not Detected (Not Detect); Buprenorphine Scr Positive (Not Detect); Cannabinoid Screen Urine POSITIVE (Not Detect); Cocaine Screen Urine Not Detected (Not Detect); Fentanyl, urine Not Detected (Not Detect); Methadone Screen, Urine Not Detected (Not Detect); Opiate Screen Urine Not Detected (Not Detect); Oxycodone Screen Urine Not Detected (Not Detect); Phencyclidine Screen Urine Not Detected (Not Detect)
[2024-02-02] MEDS: Albuterol/Iprat 2.5/0.5MG 3 ML AMPUL.NEB INHALE (21:21)
[2024-02-02 21:22] LABS: Influenza A PCR NEGATIVE (Negative); Influenza B PCR NEGATIVE (Negative); Resp Syncy Virus RNA Qual PCR NEGATIVE (Negative); SARS COV2 PCR INHOUSE POSITIVE (Negative)
--- NOTE | 2024-02-02 21:48 | PC.NURSE ---
Labs drawn and sent to lab. Patient medicated per SEP.
[2024-02-02] MEDS: Doxycycline Monohydrate 100 MG CAPSULE PO (23:38)
== END 2024-02-02 23:51 | disposition home or self-care (01) ==
PROVIDERS: Nurse Practitioner Family; Emergency Provider Emergency Medicine; PCP Internal Medicine
DX: U07.1 COVID-19 (principal); R42 Dizziness and giddiness; R94.31 Abnormal electrocardiogram [ECG] [EKG]; R51.9 Headache, unspecified; R11.2 Nausea with vomiting, unspecified; Z79.899 Other long term (current) drug therapy
CPT/HCPCS: 0241U; 36415; 70496; 70498; 71046; 80048; 80076; 80307; 81003; 81025; 83605; 83735; 85025; 86140; 87040; 93005; 94640; 96360; 96374; 96375; 99284; 99285; J0737; J1200; J1885; Q9967

== ENCOUNTER → 2024-02-02 16:05 | Outpatient (BNV) | payer OTHER, SELFPAY | PROVIDERS: Emergency Provider Emergency Medicine; PCP Internal Medicine; Visit Provider Internal Medicine | DX: R94.31 Abnormal electrocardiogram [ECG] [EKG] (principal) | CPT/HCPCS: 93010 ==

== ENCOUNTER 2024-04-13 13:26 | Outpatient (AMB) | payer OTHER, SELFPAY ==
--- NOTE | 2024-04-13 13:29 | HO.SPINEOV ---
Intake Visit Reasons: numbness/fingers right hand Intake Note: Ms. Poe is here today c/o numbness and tingling on right hand/fingers. Target Protection Specialist Required: No Allergies acetaminophen [ACETAMINOPHEN] Adverse Reaction (Intermediate, Verified 02/02/24 15:36) INCREASES INTERSTITIAL CYSTITIS/vomiting Assessment & Plan Assessment & Plan (1) Cervical myelopathy: Code(s): G95.9 - Disease of spinal cord, unspecified Category: Medical Plan HPI: Ginette is a pleasant 44 y/o female who comes in today to discuss return of symptoms. To recap she previously reported good relief from her C5-6, C6-7 ACDF completed in May of last year. Today she states her symptoms have significantly progressed once more. She states she has had return of previous symptoms ( hyperesthesia in right hand + continued numbness), alongside newer balance issues, burning pains in her bilateral thighs and hips, and posterior neck pain. Her right hand is so painful that she was wearing a glove in office today as she reports it helps reduce the burning sensation. She is in obvious agony and was in tears when discussing it. She denies any inciting incident or injury, and states that her symptoms symptoms slowly began returning / progressing again in the months after her last follow up with us. Exam: The patient maintains 5/5 strength in her upper and lower extremities however elicits quite a great deal of pain when strength testing her proximal muscle groups. She sways slightly when ambulating (likely balance related) but does not appear to have any spasticity in her gait. She has diffuse hyperreflexia; most exagerated in her bilateral patella. She also has sustained clonus in her left ankle and 3-4 beats in her right ankle. (+) Bilateral morfin's. (-) Babinski. Impression / Plan: Ginette has a history and physical exam that is highly concerning for progressive cervical myelopathy. She has multiple myelopathic reflexes on exam that were not present during her initial evaluation. I am concerned that her cervical compression may have worsened. She may need subsequent surgery via posterior decompression if this area has continued to degenerate despite our attempts to stabilize the area last year. She will be sent for a STAT cervical MRI with and without gadolinium to evaluate for progression of myelopathy and post-surgical changes. She understands and agrees to this plan. Rogers Cespedes MD,PhD [facility] Orders: Orders MR cervical spine wo/w con Today G95.9 - Disease of spinal cord, unspecified Coding Level of Care Code Est Pt Level 3 (80346) Diagnoses Cervical myelopathy G95.9
== END 2024-04-13 14:17 | disposition home or self-care (01) ==
PROVIDERS: PCP Internal Medicine; Visit Provider Physician Assistant
DX: G95.9 Disease of spinal cord, unspecified (principal)
CPT/HCPCS: 99213

== ENCOUNTER → 2024-04-13 13:26 | Outpatient (BNVA) | payer OTHER, SELFPAY | PROVIDERS: PCP Internal Medicine; Visit Provider Physician Assistant | DX: G95.9 Disease of spinal cord, unspecified (principal) | CPT/HCPCS: 99212 ==

== ENCOUNTER 2024-04-14 13:49 | Outpatient (REF) | payer OTHER, SELFPAY ==
--- NOTE | ~2024-04-14 | MR_ITS ---
EXAMINATION: MR CERVICAL SPINE WITHOUT AND WITH CONTRAST CLINICAL INFORMATION: Progressive cervical myelopathy, worsening COMPARISON: MRI cervical spine on 01/16/2023 TECHNIQUE: MRI of the cervical spine was obtained using routine sequences with and without contrast. Intravenous contrast: Gadavist 5.5 mL. FINDINGS: The visualized cervical vertebrae are intact with normal alignment. No focal bone lesion with abnormal signal can be seen. Evaluation of the intervertebral discs show: C2/C3: Intervertebral disc height is normal, with normal T2 signal. No focal disc herniation is seen. Bilateral C2-C3 neural foramina are patent. Bilateral apophyseal joints are intact with normal alignment. C3/C4: Intervertebral disc height is normal, with normal T2 signal. No focal disc herniation is seen. There is persistent marked right C3-C4 neural foraminal stenosis. Bilateral apophyseal joints are intact with normal alignment. C4/C5: Intervertebral disc height is normal, with normal T2 signal. No focal disc herniation is seen. There is moderate spinal stenosis with AP diameter of the spinal canal reduced to 8.9 mm. Bilateral C4-C5 neural foramina are patent. Bilateral apophyseal joints are intact with normal alignment. C5/C6: ACDF, fixation with integrated interbody fixation device are seen.. There is marked spinal stenosis with AP diameter of the spinal canal reduced to 7.9 mm. Bilateral C5-C6 neural foramina are markedly stenosed. Bilateral apophyseal joints are intact with normal alignment. C6/C7: ACDF, fixation with integrated interbody fixation device are seen. . There is mild spinal stenosis with AP diameter of the spinal canal reduced to 9.1 mm. Bilateral C6-C7 neural foramina are moderately stenosed. Bilateral apophyseal joints are intact with normal alignment. C7/T1: Intervertebral disc height is normal, with normal T2 signal. No focal disc herniation is seen. Bilateral C7-T1 neural foramina are patent. Bilateral apophyseal joints are intact with normal alignment. Cervical spinal cord is normal in position and signal. Post contrast images show no abnormal enhancing cervical spine bone lesion. No intra spinal canalicular enhancing soft tissue mass lesion can be seen. MR/MR cervical spine wo/w con IMPRESSION: 1. Interval performance of ACDF, fixation with interbody fixation device at C5-C6 and C6-C7. 2. Persistent Marked spinal stenosis at C5-C6 and moderate spinal stenosis at C4-C5, mild spinal stenosis at C6-C7. 3. Unchanged Marked right C3-C4, moderate bilateral C6-C7 neural foraminal stenosis. 4. No abnormal enhancing cervical spine bone lesion. No intra spinal canalicular enhancing soft tissue mass lesion can be seen. Electronically signed by: Price Watkins MD 04/15/2024 03:14 PM EDT
[2024-04-14] MEDS: gadobutroL 7.5 ML VIAL IVPUSH (15:07)
== END 2024-04-14 13:50 | disposition home or self-care (01) ==
LOC: HO.MRI 13:49
PROVIDERS: PCP Internal Medicine; Visit Provider Physician Assistant
DX: G95.9 Disease of spinal cord, unspecified (principal)
CPT/HCPCS: 72156; A9585

== ENCOUNTER 2024-04-23 17:32 | Outpatient (AMB) | payer OTHER, SELFPAY ==
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
[2024-04-23 17:35] VITALS: BP 124/76; BMI 24.9
== END 2024-04-23 18:03 | disposition home or self-care (01) ==
PROVIDERS: PCP Internal Medicine; Visit Provider Internal Medicine
DX: Z00.00 Encounter for general adult medical examination without abnormal findings (principal); G95.9 Disease of spinal cord, unspecified; F33.0 Major depressive disorder, recurrent, mild; F11.20 Opioid dependence, uncomplicated; F17.210 Nicotine dependence, cigarettes, uncomplicated; K59.03 Drug induced constipation; T40.2X5A Adverse effect of other opioids, initial encounter

== ENCOUNTER → 2024-04-23 17:32 | Outpatient (BNVA) | payer OTHER, SELFPAY | PROVIDERS: PCP Internal Medicine; Visit Provider Internal Medicine | DX: Z00.01 Encounter for general adult medical examination with abnormal findings (principal); Z23 Encounter for immunization; G95.9 Disease of spinal cord, unspecified; F33.0 Major depressive disorder, recurrent, mild; K59.03 Drug induced constipation; T40.2X5A Adverse effect of other opioids, initial encounter; F11.20 Opioid dependence, uncomplicated | CPT/HCPCS: 90471; 90656; 96127; 99212; 99396 ==

== ENCOUNTER 2024-05-12 18:30 | Outpatient (REF) | payer OTHER, SELFPAY | END 2024-05-12 18:31 | disposition home or self-care (01) | LOC: HO.MRI 18:30 | PROVIDERS: PCP Internal Medicine; Visit Provider Physician Assistant | DX: G95.9 Disease of spinal cord, unspecified (principal) | CPT/HCPCS: 72146 ==

== ENCOUNTER 2024-06-18 10:35 | Outpatient (REF) | payer OTHER, SELFPAY ==
[2024-06-18 17:37] LABS: Bacterial Vaginosis PCR POSITIVE (Negative); Candida Group PCR NOT DETECTED (Not Detect); Candida glab krusei PCR NOT DETECTED (Not Detect); Trichomonas vaginalis PCR NOT DETECTED (Not Detect)
== END 2024-06-18 10:36 | disposition home or self-care (01) ==
LOC: HO.LNP 10:35
PROVIDERS: PCP Internal Medicine; Visit Provider Obstetrics & Gynecology
DX: Z01.419 Encounter for gynecological examination (general) (routine) without abnormal findings (principal); N76.0 Acute vaginitis; B96.89 Other specified bacterial agents as the cause of diseases classified elsewhere
CPT/HCPCS: 0352U; 99396

== ENCOUNTER 2024-06-18 10:35 | Outpatient (AMB) | payer OTHER, SELFPAY ==
--- NOTE | 2024-06-18 10:37 | A.OFFVIS_ITS ---
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 Complaining of vaginal discharge associated with foul odor, no itching. Last Pap/HPV was negative in 05/05 Last Mammogram was BI-RADS 1 in 05/05 [facility] Medical History Opiate dependence Family history of hypertension Polyarthralgia Ganglion cyst of dorsum of left wrist JAME III (cervical intraepithelial neoplasia grade III) with severe dysplasia Hx of migraine headaches History of anxiety History of depression PTSD (post-traumatic stress disorder) H/O bipolar disorder Interstitial cystitis History of fibromyalgia Surgical History History of tooth extraction Hx of hand surgery Hx of cystoscopy Hx of cystoscopy Hx of section History of loop electrical excision procedure (LEEP) Hx of tubal ligation H/O abdominal hysterectomy Family History Mother Lung cancer Maternal Aunt Ovarian cancer Maternal Grandmother History of breast cancer Family/Other Mental health disorder Substance use disorder Father No problems noted. Social History Housing: Apartment Are you a primary critical care physician to a significant other at home: No Do you presently have visiting nurse or other home services: No Alcohol intake: former Comment: all counts correct Patient Tobacco Use Status: Current everyday Tobacco user Tobacco use type: Cigarette Cigarettes Per Day: 4 Years Smoked: 31 e-Cigarette/Vaping Use: Never Used Second Hand Smoke Exposure: No service: No Current occupational status: unemployed Current occupation: right hand Cognitive needs: No Hearing needs: No Vision needs: No Female Reproductive History Menstrual Total pregnancies: 3 Full term: 1 Ab induced: 1 Ab spontaneous: 1 Date of last pap smear: 04/17/22 (negative hpv, negative pap) Date of Mammogram: 05/01/22 (bi rad 1) Review of Systems Const All systems reviewed & are unremarkable except as noted in HPI and below Card Reports as per HPI Resp Reports as per HPI GI Reports as per HPI and Reports no additional complaints Reports as per HPI Physical Exam Vital Signs: Last Vital Signs BP 120/72 06/18/24 10:40 BMI result Body Mass Index 25.5 Const General: cooperative, healthy appearing and comfortable Chest Chest palpation & inspection: normal inspection of the chest and normal palpation of entire chest wall Breast/axilla inspection: normal inspection of the breasts and normal inspection of the axillae Breast/axilla palpation: normal palpation of the breasts, normal palpation of the axillae and no axillary lymphadenopathy Resp Effort & Inspection: normal respiratory effort Auscultation: clear to auscultation bilaterally Percussion: percussion normal Cardio Palpation: normal PMI Rate: regular rate Rhythm: regular rhythm Heart sounds: no murmurs and no rubs Peripheral pulses: Peripheral pulses 2+ throughout GI Inspection: Yes normal to inspection Palpation (GI): Soft to palpation, nontender, no guarding, not rigid and No hepatosplenomegaly present Percussion: Yes normal to percussion Auscultation: normal bowel sounds Rectal Exam - Female: deferred General: Yes bladder normal to palpation External Female Exam: No lesion Speculum Exam - Vagina: normal appearance of the vagina, normal vaginal discharge and not erythematous Speculum Exam - Cervix: Cervix absent Bimanual exam- vagina & uterus: bladder normal to palpation and uterus absent Bimanual Exam- Adnexa, other: normal adnexae, no masses and no tenderness Assessment & Plan Assessment & Plan (1) Well woman exam: Comment: History of JAME 3 in 2014 status post hysterectomy Code(s): Z01.419 - Encounter for gynecological examination (general) (routine) without abnormal findings Category: Medical Plan: Cotesting not indicated this year. Mammogram ordered. Counseled the patient about the recommended dietary allowance of 1000 mg of Calcium & 600 IU of vitamin D. The patient was instructed to perform monthly self-breast exams and to schedule an annual exam in a year; All questions answered and the patient verbalized understanding. Instructed the patient to schedule annual exam in a year (2) Bacterial vaginosis: Code(s): N76.0 - Acute vaginitis; B96.89 - Other specified bacterial agents as the cause of diseases classified elsewhere Category: Medical Plan: BV panel taken. Per CDC recommendation, will screen for STI, HepBs Ag, HIV, RPR, Hep C Ab ordered. Will treat with Flagyl 500 mg p.o. b.i.d. x 7 days, Instructions given to the patient to refrain from sexual activity or to use condoms consistently and correctly during the BV treatment regimen, not to douch, it might increase the risk for relapse, and to call if symptoms persist or recur. Orders: Orders MM tomosynthesis screening BI Today Z12.31 - Encounter for screening mammogram for malignant neoplasm of breast Syphilis Screen Today B96.89 - Other specified bacterial agents as the cause of diseases classified elsewhere, N76.0 - Acute vaginitis HIV Ab/Ag Today B96.89 - Other specified bacterial agents as the cause of diseases classified elsewhere, N76.0 - Acute vaginitis Hepatitis B Surface Antigen Today B96.89 - Other specified bacterial agents as the cause of diseases classified elsewhere, N76.0 - Acute vaginitis Hepatitis C Antibody Today B96.89 - Other specified bacterial agents as the cause of diseases classified elsewhere, N76.0 - Acute vaginitis Medications: New metronidazole 500 mg PO BID 7 days 14 tabs 0RF Coding Level of Care Code Est Pt Prev Care 40-64y(32589) Diagnoses Well woman exam Z01.419 Bacterial vaginosis N76.0; B96.89
[2024-06-18 10:40] VITALS: BP 120/72; BMI 25.5
== END 2024-06-18 10:55 | disposition home or self-care (01) ==
LOC: HO.HWS 10:35
PROVIDERS: PCP Internal Medicine; Visit Provider Obstetrics & Gynecology
DX: Z01.419 Encounter for gynecological examination (general) (routine) without abnormal findings (principal); N76.0 Acute vaginitis; B96.89 Other specified bacterial agents as the cause of diseases classified elsewhere
CPT/HCPCS: 99396

== ENCOUNTER 2024-08-03 07:34 | Outpatient (AMB) | payer OTHER, SELFPAY ==
--- NOTE | 2024-08-03 07:35 | MHC.OFFVIS ---
Vital Signs 08/03/24 07:37 Height 4 ft 10 in Weight 118 lb 6 oz BMI 24.7 BP 112/78 Blood Pressure Location Rt brachial Position Sitting Pulse 68 Pulse Source Pulse Oximeter Pulse Oximetry (%) 98 Oxygen Delivery Method Room Air Intake Visit Reasons: INP-Urgent Disease of spinal cord Intake Note: Patient presents for evaliation Allergies acetaminophen [ACETAMINOPHEN] Adverse Reaction (Intermediate, Verified 08/03/24 07:38) INCREASES INTERSTITIAL CYSTITIS/vomiting HPI Comments Details: 44y/o female comes for evaluation of possible MS. She has a Cervical spine surgery in 2022 - C5-6 and C6-7 . she still has persistent and worsening numbness and weakness in her upper extremities. she also has episodes weakness in her LE with falls. She has neck and back pain . She also has increased headaches since her surgery which started in posterior neck and radiates to the whole head. she has daily headaches lasting 3-4 hrs ( if untreated ) she takes advil 3-4 tabs once a day. she always had headaches but increase din frequency with surgery. she has nausea, light and noise sensitivity with her headaches. advil helps. The headaches are worse at night. she has interstitial cystitis and has urgency. she had MRI T spine without katie which showed some cord signal changes which could be artifacts but suggested do r/o MS. No change in vision, no double vision, no dysarthria, no dyspagia , facial numbness or weakness. [facility] Medical History Abnormal magnetic resonance imaging of spinal cord Hyperreflexia of lower extremity Opiate dependence Family history of hypertension Polyarthralgia Ganglion cyst of dorsum of left wrist JAME III (cervical intraepithelial neoplasia grade III) with severe dysplasia Hx of migraine headaches History of anxiety History of depression PTSD (post-traumatic stress disorder) H/O bipolar disorder Interstitial cystitis History of fibromyalgia Surgical History History of tooth extraction Hx of hand surgery Hx of cystoscopy Hx of cystoscopy Hx of section History of loop electrical excision procedure (LEEP) Hx of tubal ligation H/O abdominal hysterectomy Family History Mother Lung cancer Maternal Aunt Ovarian cancer Maternal Grandmother History of breast cancer Family/Other Mental health disorder Substance use disorder Father No problems noted. Social History Housing: Apartment Are you a primary animal care technician to a significant other at home: No Do you presently have visiting nurse or other home services: No Alcohol intake: former Comment: all counts correct Patient Tobacco Use Status: Current everyday Tobacco user Tobacco use type: Cigarette Cigarettes Per Day: 4 Years Smoked: 31 e-Cigarette/Vaping Use: Never Used Second Hand Smoke Exposure: No service: No Current occupational status: unemployed Current occupation: right hand Cognitive needs: No Hearing needs: No Vision needs: No Physical Exam Vital Signs: Last Vital Signs Pulse 68 08/03/24 07:37 BP 112/78 08/03/24 07:37 Pulse Ox 98 08/03/24 07:37 Oxygen Delivery Method Room Air 08/03/24 07:37 BMI result Body Mass Index 24.7 Const General: cooperative, healthy appearing and comfortable Nutritional Appearance: average body habitus Orientation/consciousness: patient oriented x3 Eyes Pupils: Equal, round and reactive pupils present Neuro General: patient oriented x3, gait normal, tone normal, moves all extremities and no focal motor deficits Cranial nerves: Yes Facial sensation intact/muscles of mastication intact, Yes Equal, round and reactive pupils present, Yes Bilaterally intact EOM present, Yes Nystagmus not present, Yes Normal facial strength present, Yes Midline tongue present and Yes Symmetric palate elevation present Cognition (Neuro): normal cognition Gait exam (Neuro): Normal gait present Motor exam (neuro): 5/5 motor strength present throughout and Normal motor muscle tone present throughout Deep tendon reflexes (DTR's): Right triceps reflex intensity grade: 3+, Left triceps reflex intensity grade: 3+, Rt Biceps (C5, C6): 3+, Left biceps reflex intensity grade: 3+, Right brachioradialis reflex intensity grade: 3+, Left brachioradialis reflex intensity grade: 3+, Right patellar reflex intensity grade: 4+, Left patellar reflex intensity grade: 4+, Right ankle reflex intensity grade: 2+ and Left ankle reflex intensity grade: 2+ Coordination: [id number] test normal Assessment & Plan Assessment & Plan (1) Hyperreflexia of lower extremity: Code(s): R29.2 - Abnormal reflex Category: Medical (2) Abnormal magnetic resonance imaging of spinal cord: Code(s): R90.89 - Other abnormal findings on diagnostic imaging of central nervous system Category: Medical (3) Cervical myelopathy: Code(s): G95.9 - Disease of spinal cord, unspecified Category: Medical Plan Reviewed MRI T spine - unlikely to be MS I will evaluate her with MRI T spine with katie MRI LS spine I will trial her on cyclobenzaprine 10mg qhs for neck pain Magnesium 400mg qhs Orders: Orders MR thoracic spine w con Today G95.9 - Disease of spinal cord, unspecified, R29.2 - Abnormal reflex, R90.89 - Other abnormal findings on diagnostic imaging of central nervous system MR lumbar spine wo/w con Today R29.2 - Abnormal reflex, R90.89 - Other abnormal findings on diagnostic imaging of central nervous system Medications: New cyclobenzaprine 10 mg PO BEDTIME 30 tabs 2RF magnesium oxide 400 mg PO DAILY 30 tabs 6RF Coding Level of Care Code New Pt Level 4 (55827) Diagnoses Hyperreflexia of lower extremity R29.2 Abnormal magnetic resonance imaging of spinal cord R90.89 Cervical myelopathy G95.9
[2024-08-03 07:37] VITALS: BP 112/78; PULSE 68; O2SAT 98; BMI 24.7
== END 2024-08-03 08:18 | disposition home or self-care (01) ==
PROVIDERS: PCP Internal Medicine; Visit Provider Psychiatry & Neurology Neurology
DX: R29.2 Abnormal reflex (principal); R90.89 Other abnormal findings on diagnostic imaging of central nervous system; G95.9 Disease of spinal cord, unspecified
CPT/HCPCS: 99204

== ENCOUNTER → 2024-08-03 07:34 | Outpatient (BNVA) | payer OTHER, SELFPAY | PROVIDERS: PCP Internal Medicine; Visit Provider Psychiatry & Neurology Neurology | DX: G95.9 Disease of spinal cord, unspecified (principal); R29.2 Abnormal reflex; R90.89 Other abnormal findings on diagnostic imaging of central nervous system | CPT/HCPCS: 99202 ==

== ENCOUNTER 2024-08-12 12:59 | Outpatient (AMB) | payer OTHER, SELFPAY ==
[2024-08-12 13:25] VITALS: BMI 39.3
--- NOTE | 2024-08-12 13:25 | A.OFFVIS_ITS ---
Vital Signs 08/12/24 13:25 Height 4 ft 10 in Weight 188 lb BMI 39.3 Intake Visit Reasons: OV-RT CTS Follow up Intake Note: Ginette 44 yr old female presents today for her right hand cubital tunnel. States she would like to discuss surgical intervention. Allergies acetaminophen [ACETAMINOPHEN] Adverse Reaction (Intermediate, Verified 08/03/24 07:38) INCREASES INTERSTITIAL CYSTITIS/vomiting HPI HPI OV-RT CTS Follow up: Details: Ginette is a 42 year old ambidextrous woman who returns today with chief complaint of numbness and tingling in her right hand. She says that she had spine surgery but that things feel like they are worse. With regards to her hands she complains of numbness in the right hand to all fingers. More dense numbness median nerve and intermittent in the small and ring fingers. Weakness. She also complains of pain around the basal joints of both thumbs, right worse than left radiating into the thenar masses bilaterally. She has known cervical myelopathy and completed an MRI of her C-spine. She is currently not working, and has been out of work for ~15 years now. She has a Hx of cervical myelopathy and a Hx of ACDF done by a clinical application specialist. She says there is a lot they missed & didn't do . She says she has no change in her numbness or weakness following her surgery, and her symptoms have worsened, and is now accompanied by recurrent migraines. Note from BEN Gonzalez clinical application specialist, on 08/02/23 Ginette presents for her 1st post-op appointment today. She reports she is very satisfied with the surgery but had some questions regarding postoperative healing. She states that she has no significant deficits throughout the day, and is back to living it mostly normal life. She reports that she no longer suffers from right sided burning or pain, but does still have some residual numbness in her right hand. In looking at her spine nose looks like she had a recurrence of symptoms and that they are working this up. [facility] Medical History Abnormal magnetic resonance imaging of spinal cord Hyperreflexia of lower extremity Opiate dependence Family history of hypertension Polyarthralgia Ganglion cyst of dorsum of left wrist JAME III (cervical intraepithelial neoplasia grade III) with severe dysplasia Hx of migraine headaches History of anxiety History of depression PTSD (post-traumatic stress disorder) H/O bipolar disorder Interstitial cystitis History of fibromyalgia Surgical History History of tooth extraction Hx of hand surgery Hx of cystoscopy Hx of cystoscopy Hx of section History of loop electrical excision procedure (LEEP) Hx of tubal ligation H/O abdominal hysterectomy Family History Mother Lung cancer Maternal Aunt Ovarian cancer Maternal Grandmother History of breast cancer Family/Other Mental health disorder Substance use disorder Father No problems noted. Social History Housing: Apartment Are you a primary career placement services counselor to a significant other at home: No Do you presently have visiting nurse or other home services: No Alcohol intake: former Comment: all counts correct Patient Tobacco Use Status: Current everyday Tobacco user Tobacco use type: Cigarette Cigarettes Per Day: 4 Years Smoked: 31 e-Cigarette/Vaping Use: Never Used Second Hand Smoke Exposure: No service: No Current occupational status: unemployed Current occupation: right hand Cognitive needs: No Hearing needs: No Vision needs: No Physical Exam Vital Signs: BMI result Body Mass Index 39.3 Extrem Other: Evaluation of Right Upper Extremity: The patient is alert, oriented, and in no acute distress Neuro: Dense numbness in the median nerve distribution, normal sensation in the ulnar nerve distribution today in clinic. Numbness extending down into the mid- palm at the base of the index and middle fingers No thenar or intrinsic wasting She still has APB muscle belly firing and good finger cross She has some flattening of the thenar eminence Vascular: Cap refill brisk ROM: She can make a fist and extend all her digits Most tender over the basal joints bilaterally right worse than left. Positive shoulder sign Not tender over the A1 justin or 1st dorsal compartment tendons No locking or catching Nerve Conduction Study: IMPRESSION:? 1. Right mid to lower cervical radiculopathy. 2. Mild right ulnar neuropathy across cubital tunnel. Dakota Bravo MD 11/01/2022 Office Procedures AMB Fracture Care Details: No fracture, injection Fracture Billing Code: Fracture Billing Code Assessment & Plan Assessment & Plan (1) Arthritis of carpometacarpal (CMC) joint of right thumb: Code(s): M18.11 - Unilateral primary osteoarthritis of first carpometacarpal joint, right hand Category: Medical (2) Cubital tunnel syndrome on right: Code(s): G56.21 - Lesion of ulnar nerve, right upper limb Category: Medical (3) Numbness and tingling in right hand: Code(s): R20.0 - Anesthesia of skin; R20.2 - Paresthesia of skin Category: Medical (4) Cervical myelopathy: Code(s): G95.9 - Disease of spinal cord, unspecified Category: Medical (5) Fibromyalgia: Code(s): M79.7 - Fibromyalgia Category: Medical Plan Assessment & Plan: 1. Right basal joint arthritis 2. Left basal joint arthritis I educated her about this condition I discussed operative and non-operative treatment options The patient would like to proceed with an injection for her right hand I discussed activity modification, they should limit or avoid any heavy or repetitive pinching or gripping activities She was fitted for bilateral comfort cool braces, to wear with daily activity Injection #1: The risks and benefits of a steroid injection including but not limited to risk of damage to blood vessels, nerve, tendon, infection, skin bleaching, persistent or worsening pain, and failure to improve symptoms were discussed with the patient and they wish to proceed with the steroid injection. Once consent was obtained the skin over the dorsum of the Right basal joint was sterilely prepped. The joint was then injected with a combination of 1 mL of (40 mg/ml} Depo-Medrol and 1% plain Lidocaine. The patient appears to have tolerated the procedure well and with no complications. She had good early relief before leaving clinic today. She knows that they may not have another steroid injection into this joint for least 4 months. 3. Right Cubital tunnel syndrome, mild Symptoms intermittent and only occasional 4. Right hand numbness In the median nerve distribution With dense numbness I ordered a new NCS to assess for peripheral nerve compression She will follow up when completed for review 5. Cervical Myelopathy, S/P C5-C6, and C6-C7 ACDF DOS: 06/13/23 She is managing this with a clinical application specialist Please note that greater than 50 minutes was spent with this patient going over the history, evaluating the patient and radiographs, formulating possible treatment options, discussing them with the patient, and documenting the visit. Scribed for Debra Mitchell MD by Wilfredo Stephens, medical information officer, on 08/12/24 at 1:40 PM, EST. Orders: Orders NE nerve conduction velocity Today R20.0 - Anesthesia of skin, R20.2 - Paresthesia of skin Coding Level of Care Code Est Pt Level 5 (98687) Diagnoses Arthritis of carpometacarpal (CMC) joint of right thumb M18.11 Cubital tunnel syndrome on right G56.21 Numbness and tingling in right hand R20.0; R20.2 Cervical myelopathy G95.9 Fibromyalgia M79.7 CPT Codes Fracture Care - Fracture Billing Code: Fracture Billing Code ([id number])
--- OUTSIDE RECORDS SUMMARY | 2024-08-12 15:07 | XMS_ITS | Clinical Summary ---
Author Organization [employer] Address [address] [place] [address] Care Team Providers Care Director Of Education Name Role Phone Unavailable Primary Care Provider Unavailabl e Allergies Active Allergy Reactions Criticality Noted Date Comments Acetaminophen 10/12/2021 Other reaction(s): Abdominal discomfort Medications amphetamine-dex troamphetamine (Adderall) 20 MG tablet Take 1 tablet by mouth at bed time. Active Buprenorphine HCl-Naloxone HCl (Suboxone) 8-[address] 1 Film under the tongue at bed time. Active ibuprofen 800 MG tablet Take 1 tablet by mouth every 8 (eight) hours. 2 Active PARoxetine (Paxil) 40 MG tablet Take 1 tablet by mouth at bed time. Active Suboxone 2-0.5 MG per sublingual film DISSOLVE 1 FILM UNDER THE TONGUE ONCE A DAY 2 Active baclofen (Lioresal) 10 MG tablet TAKE 1 TABLET BY MOUTH 3 TIMES A DAY FOR 7 DAYS 2 Active cephalexin (Keflex) 500 MG capsule TAKE 1 CAPSULE BY MOUTH 4 TIMES A DAY FOR 3 DAYS 2 Active chlorhexidine (Peridex) 0.12 % solution TAKE 1 CAPFUL BY MOUTH, SWISH, HOLD FOR 2 MIN THEN SPIT 3 TIMES A DAY AFTER MEALS 2 Active cyclobenzaprine (Flexeril) 5 MG tablet TAKE 1 TABLET BY MOUTH 3 TIMES A DAY,X5 DAYS 2 Active fluconazole (Diflucan) 150 MG tablet TAKE 1 TABLET BY MOUTH ONCE. MAY REPEAT IN 72 HOURS IF SYMPTOMS PERSIST 2 Active hydrOXYzine HCl (Atarax) 25 MG tablet TAKE 1-2 TABLET BY MOUTH TWICE A DAY NEEDED FOR ANXIETY/ SLEEP, MAY REDUCE TO 1/2 TAB IF NEEDED 1 Active melatonin 3 MG tablet 2 Active metroNIDAZOLE (Flagyl) 500 MG tablet TAKE 1 TABLET ORALLY 2 TIMES A DAY FOR 7 DAYS 2 Active oxyCODONE (Roxicodone) 5 MG immediate release tablet TAKE 1 TABLET BY MOUTH EVERY 6 HOURS NEEDED FOR PAIN FOR 3 DAYS 2 Active oxyCODONE-aceta minophen (Percocet) 5-325 MG tablet Take 1 tablet by mouth every 4 (four) hours if needed. 2 Active sulfamethoxazol e-trimethoprim (Bactrim DS) 800-160 MG tablet Take 1 tablet by mouth in the morning and at bedtime. 2 Active terconazole (Terazol 3) 0.8 % vaginal cream 1 APPFUL VAGINALLY BEDTIME FOR 3 DAYS 2 Active valACYclovir (Valtrex) 1 g tablet Take 1,000 mg by mouth in the morning and at bedtime. 2 Active PARoxetine (Paxil) 20 MG tablet TAKE 1 TABLET BY MOUTH EVERY NIGHT TAKE WITH PAXIL 40 MG TO MAKE TOTAL DOSE OF 60 MG 2 Active Social History Tobacco Use Types Packs/Day Years Used Date Smoking Tobacco: Never Assessed Comments Unknown Sex and Gender Information Value Date Recorded Sex Assigned at Not on file Legal Sex Female 10:44 AM EST Gender Identity Choose not to disclose 2 10:24 AM EDT Sexual Orientation Choose not to disclose 2021 10:24 AM EDT Last Filed Vital Signs Vital Sign Reading Time Taken Comments Blood Pressure 98/76 07/18/2022 11:47 AM EST Pulse - - Temperature - - Respiratory Rate - - Oxygen Saturation - - Inhaled Oxygen Concentration - - Weight - - Height - - Body Mass Index - - Plan of Treatment Health Maintenance Due Date Last Done Comments Dental Oral Exam 1981 Dental Prophylaxis 1981 Dental X-Ray: Bitewings 1981 Dental X-Ray: Full Mouth 1981 Depression Screening 1981 HIV Screening 1981 SDOH Screening 1981 Alcohol/Substance Use Screening 1993 Tobacco Screening 1993 Family Planning (PISQ) 1996 Hepatitis C Screening 1999 DTaP/Tdap/Td Vaccines (1 - Tdap) 2000 Hepatitis B Vaccines (1 of 3 - 19+ 3-dose series) 2000 Pap Smear 2002 Cervical Cancer Screening 2011 HPV/Cotest 2011 Mammogram 2021 COVID-19 Vaccine (1 - 2023-2 5 season) 2024 Influenza Vaccine (#1) 2024 Zoster Vaccines (1 of 2) 2031 RSV Patients and Pa tients Aged 60 years or older (1 - 1-dose 75+ series) 2056 HIB Vaccines Aged Out No longer eligi ble based on patient's age to complete this topic HPV Vaccines Aged Out No longer eligi ble based on patient's age to complete this topic Hepatitis A Vaccines Aged Out No long er eligible based on patient's age to complete this topic IPV Vaccines Aged Out No longer eligi ble based on patient's age to complete this topic Meningococcal Vaccine Aged Out No angeline noam eligible based on patient's age to complete this topic Pneumococcal Vaccine: Pediat rics (0 to 5 Years) and At-Risk Patients (6 to 49) Years) Aged Out No longer eligible b ased on patient's age to complete this topic RSV under 20 months Aged Out No longe r eligible based on patient's age to complete this topic Rotavirus Vaccines Aged Out No longer eligible based on patient's age to complete this topic Insurance [facility] MEDICAID STAND ADULT
--- OUTSIDE RECORDS SUMMARY | 2024-08-12 15:07 | XMS_ITS | Encounter Summary ---
Author Organization [employer] Address [address] [place] [address] Care Team Providers Care Data Sciences Director Name Role Phone Unavailable Primary Care Provider Unavailabl e Encounter Details Date Type Department Care Team (Late st Contact Info) Description 06/11/2022 Abstract [facility] [address] [place] [address] Dental, Provider, DDS Social History Tobacco Use Types Packs/Day Years Used Date Smoking Tobacco: Never Assessed Comments Unknown Sex and Gender Information Value Date Recorded Sex Assigned at Not on file Legal Sex Female 10:44 AM EST Gender Identity Choose not to disclose 10:24 AM EDT Sexual Orientation Choose not to disclose 2021 10:24 AM EDT documented as of this encounter Plan of Treatment Not on file documented as of this encounter Visit Diagnoses Not on filedocumented in this encounter
== END 2024-08-12 14:44 | disposition home or self-care (01) ==
PROVIDERS: PCP Internal Medicine; Visit Provider Orthopaedic Surgery
DX: M18.11 Unilateral primary osteoarthritis of first carpometacarpal joint, right hand (principal); G56.21 Lesion of ulnar nerve, right upper limb; R20.0 Anesthesia of skin; R20.2 Paresthesia of skin; G95.9 Disease of spinal cord, unspecified; M79.7 Fibromyalgia
CPT/HCPCS: 20600; 99215

== ENCOUNTER → 2024-08-12 12:59 | Outpatient (BNVA) | payer OTHER, SELFPAY | PROVIDERS: PCP Internal Medicine; Visit Provider Orthopaedic Surgery | DX: M18.11 Unilateral primary osteoarthritis of first carpometacarpal joint, right hand (principal); G56.21 Lesion of ulnar nerve, right upper limb; R20.0 Anesthesia of skin; R20.2 Paresthesia of skin; G95.9 Disease of spinal cord, unspecified; M79.7 Fibromyalgia | CPT/HCPCS: 20600; 99212; J1010; J2003 ==

== ENCOUNTER 2024-08-21 14:50 | Outpatient (REF) | payer OTHER, SELFPAY | END 2024-08-21 14:51 | disposition home or self-care (01) | LOC: HO.NEURO 14:50 | PROVIDERS: PCP Internal Medicine; Visit Provider Orthopaedic Surgery | DX: R20.0 Anesthesia of skin (principal); R20.2 Paresthesia of skin | CPT/HCPCS: 95886; 95910 ==

== ENCOUNTER → 2024-08-21 14:52 | Outpatient (BNV) | payer OTHER, SELFPAY | PROVIDERS: PCP Internal Medicine; Visit Provider Physical Medicine & Rehabilitation | DX: R20.0 Anesthesia of skin (principal); R20.2 Paresthesia of skin | CPT/HCPCS: 95886; 95910 ==

== ENCOUNTER 2024-08-23 13:15 | Outpatient (REF) | payer OTHER, SELFPAY ==
--- NOTE | ~2024-08-23 | MR_ITS ---
MR/MR lumbar spine wo/w con IMPRESSION: No enhancing lesion and or mass. No acute fracture or listhesis. No gross disc herniation or compression upon neural elements. Multilevel thoracolumbar spondylosis. Electronically signed by: Chandan Sesay MD 08/24/2024 11:55 AM MICHAEL
[2024-08-23] MEDS: gadobutroL 7.5 ML VIAL IVPUSH (14:37)
== END 2024-08-23 13:16 | disposition home or self-care (01) ==
LOC: HO.MRI 13:15
PROVIDERS: PCP Internal Medicine; Visit Provider Psychiatry & Neurology Neurology
DX: R29.2 Abnormal reflex (principal); R90.89 Other abnormal findings on diagnostic imaging of central nervous system; G95.9 Disease of spinal cord, unspecified
CPT/HCPCS: 72157; 72158; A9585

== ENCOUNTER → 2024-08-23 13:22 | Outpatient (BNV) | payer OTHER, SELFPAY | PROVIDERS: PCP Internal Medicine; Visit Provider Radiology Diagnostic Radiology | DX: G95.9 Disease of spinal cord, unspecified (principal); R29.2 Abnormal reflex | CPT/HCPCS: 72157; 72158 ==

== ENCOUNTER 2024-10-05 08:02 | Outpatient (AMB) | payer OTHER, SELFPAY ==
[2024-10-05 08:10] VITALS: BP 140/88; PULSE 105; O2SAT 97; BMI 25.5
--- NOTE | 2024-10-05 08:10 | A.OFFVIS_ITS ---
Vital Signs 10/05/24 08:10 Height 4 ft 10 in Weight 122 lb 2 oz BMI 25.5 BP 140/88 H Blood Pressure Location Rt brachial Position Sitting Pulse 105 H Pulse Source Pulse Oximeter Pulse Oximetry (%) 97 Oxygen Delivery Method Room Air Intake Visit Reasons: follow up Disease of spinal cord Intake Note: Patient present for follow Up. MRIs In chart. Rt hand numbness and tingling, also since surgery neck has been having burning tingling sensation that causes migraines. Allergies acetaminophen [ACETAMINOPHEN] Adverse Reaction (Intermediate, Verified 10/05/24 08:13) INCREASES INTERSTITIAL CYSTITIS/vomiting Medication List - Last Reconciled 10/05/24 by Judy Rhodes MD Braaaron,wrist (Wrist Brace - one) As directed buprenorphine-naloxone 8-2 mg (Suboxone) 10 mg sublingual DAILY cyclobenzaprine 10 mg PO BEDTIME dextroamphetamine-amphetamine 20 mg 1 tab PO TID lidocaine 5% 1 patch topical DAILY magnesium oxide 400 mg PO DAILY nicotine 1 patch transdermal Q24H 14 days paroxetine HCl 60 mg PO BEDTIME sennosides (senna) 8.6 mg PO BEDTIME PRN 90 days HPI Comments Details: 44y/o L. handed female comes for evaluation of possible MS. She had Cervical spine surgery in 2022 - C5-6 and C6-7. she still has persistent and worsening numbness and weakness in her RUE r. hand and first 3 digits, with burning, numbness and tingling radiating into palm, she wears a glove today. She has difficulty with buttoning her shirts, writing, cleaning, dusting, and eating. She also has episodes of weakness in her LE with falls, as her legs give up on her. She has neck and back pain. She also has increased headaches since her surgery which started in posterior neck and radiates to the whole head. she has daily headaches lasting 3-4 hrs ( if untreated ) she takes advil 3-4 tabs once a day. she always had headaches but increased in frequency since surgery. she has nausea, light and noise sensitivity with her headaches. advil helps. The headaches are worse at night. she has interstitial cystitis and has urgency. she had MRI T spine without katie which showed some cord signal changes which could be artifacts but suggested to r/o MS. No change in vision, no double vision, no dysarthria, no dyspagia, facial numbness or weakness. Suboxone BID 4am and 2 -3pm and Adderall is taken BID 7am and 2-3 pm. Constipation has a BM 1x per week and hard stool. Characteristic of Migraine: Migraines in the nape of the neck, and radiates up to the parietal lobes, her jaw locks up and with pressure and it gets so severe she wants to drill a hole in her head to relieve the pressure, 3-4 x a week, at night after dinner, las ting 2hours through the night, and wakes up at 2-3am with pain and takes advil, and scratches her face in the middle of the night. She takes 4 advils (200mg each), she has light and sound sensitive, denies nausea and vomiting. Bilateral hip pain and wakes up in pain 2-3am, difficulty sleeping on her sides, gets about 3 hours of sleep, L>R, the pain is soreness and tender to touch like it is bruised on the inside, and low back. She sees: Markell Daigle, and [place] Ginette Agee, therapist every two weeks. Psychiatry Cass Canseco at [place] every 3 months. She goes to [facility] in [address] for substance abuse disorder. [facility] Medical History Abnormal magnetic resonance imaging of spinal cord Hyperreflexia of lower extremity Opiate dependence Family history of hypertension Polyarthralgia Ganglion cyst of dorsum of left wrist JAME III (cervical intraepithelial neoplasia grade III) with severe dysplasia Hx of migraine headaches History of anxiety History of depression PTSD (post-traumatic stress disorder) H/O bipolar disorder Interstitial cystitis History of fibromyalgia Surgical History History of tooth extraction Hx of hand surgery Hx of cystoscopy Hx of cystoscopy Hx of section History of loop electrical excision procedure (LEEP) Hx of tubal ligation H/O abdominal hysterectomy Family History Mother Lung cancer Maternal Aunt Ovarian cancer Maternal Grandmother History of breast cancer Family/Other Mental health disorder Substance use disorder Father No problems noted. Social History Housing: Apartment Are you a primary primary care md to a significant other at home: No Do you presently have visiting nurse or other home services: No Alcohol intake: former Comment: all counts correct Patient Tobacco Use Status: Current everyday Tobacco user Tobacco use type: Cigarette Cigarettes Per Day: 4 Years Smoked: 31 e-Cigarette/Vaping Use: Never Used Second Hand Smoke Exposure: No service: No Current occupational status: unemployed Current occupation: right hand Cognitive needs: No Hearing needs: No Vision needs: No Physical Exam Vital Signs: Last Vital Signs Pulse 105 H 10/05/24 08:10 BP 140/88 H 10/05/24 08:10 Pulse Ox 97 10/05/24 08:10 Oxygen Delivery Method Room Air 10/05/24 08:10 BMI result Body Mass Index 25.5 Const General: cooperative, healthy appearing and comfortable Nutritional Appearance: average body habitus Orientation/consciousness: patient oriented x3 Eyes Pupils: Equal, round and reactive pupils present Neuro General: patient oriented x3, gait normal, tone normal, moves all extremities and no focal motor deficits Cranial nerves: Yes Facial sensation intact/muscles of mastication intact, Yes Equal, round and reactive pupils present, Yes Bilaterally intact EOM present, Yes Nystagmus not present, Yes Normal facial strength present, Yes Midline tongue present and Yes Symmetric palate elevation present Cognition (Neuro): normal cognition Gait exam (Neuro): Normal gait present Motor exam (neuro): 5/5 motor strength present throughout and Normal motor muscle tone present throughout Deep tendon reflexes (DTR's): Right triceps reflex intensity grade: 3+, Left triceps reflex intensity grade: 3+, Rt Biceps (C5, C6): 3+, Left biceps reflex intensity grade: 3+, Right brachioradialis reflex intensity grade: 3+, Left brachioradialis reflex intensity grade: 3+, Right patellar reflex intensity grade: 4+, Left patellar reflex intensity grade: 4+, Right ankle reflex intensity grade: 2+ and Left ankle reflex intensity grade: 2+ Coordination: [id number] test normal Results Reviewed Results Reviewed: 08/21/2024 FINDINGS: All motor and sensory nerves tested showed normal latencies, amplitudes and conduction velocities. Right ulnar motor nerve did not show any slowing or conduction block across elbow. Concentric needle EMG was performed in selected muscles of the right upper extremity. Study did not reveal signs of electric abnormalities as shown in the table above. All motor and sensory nerves tested showed normal latencies, amplitudes and conduction velocities. Thoracic-l MRI MR/MR thoracic spine wo/w con IMPRESSION: No abnormal enhancing lesion and or mass. Multilevel spondylosis without acute fracture or listhesis. No disc herniation or cord compression. Probable artifactual spinal cord signal at T6 -7. Lumbar MRI IMPRESSION: No enhancing lesion and or mass. No acute fracture or listhesis. No gross disc herniation or compression upon neural elements. Multilevel thoracolumbar spondylosis. 04/2024 MR/MR cervical spine wo/w con IMPRESSION: 1. Interval performance of ACDF, fixation with interbody fixation device at C5-C6 and C6-C7. 2. Persistent Marked spinal stenosis at C5-C6 and moderate spinal stenosis at C4-C5, mild spinal stenosis at C6-C7. 3. Unchanged Marked right C3-C4, moderate bilateral C6-C7 neural foraminal stenosis. 4. No abnormal enhancing cervical spine bone lesion. No intra spinal canalicular enhancing soft tissue mass lesion can be seen. 07/2024 MR/MR thoracic spine wo con IMPRESSION: 1. Multilevel mild degrees of mid to lower thoracic spondylosis, disc degenerative change, as described above, with multilevel shallow central disc protrusions without cord impingement or significant spinal canal stenosis. 2. Multilevel predominately mild degrees of facet joint arthropathy with mild right-sided foraminal narrowing at T4-T5 and T10-T11. 3. Multilevel small eccentric, nonspecific foci of T2 hyperintensity are noted within the spinal cord, some of which may be artifacts, scattered between T4-T5 and at T10-T11 inclusive. Recommend follow-up with contrast at a clinically appropriate interval to reassess. Also, MRI of the brain without and with contrast may be of additional value. Assessment & Plan Assessment & Plan (1) Multilevel spinal stenosis: Code(s): M48.00 - Spinal stenosis, site unspecified Category: Medical (2) Numbness and tingling in right hand: Code(s): R20.0 - Anesthesia of skin; R20.2 - Paresthesia of skin Category: Medical (3) Hyper reflexia: Comment: Bilateral LE Code(s): R29.2 - Abnormal reflex Category: Medical (4) Hx of migraines: Code(s): Z86.69 - Personal history of other diseases of the nervous system and sense organs Category: Medical (5) Cervical myelopathy: Code(s): G95.9 - Disease of spinal cord, unspecified Category: Medical (6) Hyperreflexia of lower extremity: Code(s): R29.2 - Abnormal reflex Category: Medical (7) Abnormal magnetic resonance imaging of spinal cord: Code(s): R90.89 - Other abnormal findings on diagnostic imaging of central nervous system Category: Medical Plan Reviewed MRI 03/2023 T spine, spondylosis and stenosis will compare with new MRI Reveiwed MRI LS spine with Patient: Spondylosis, facet arthropathy. Bilateral Hip pain, PT eval and treat. Migraine Cervicalgia Sumatriptan 50mg at onset of acute migraine, may take one additional tablet within 2 hours if migraine does not abort. May not exceed more than 4 tablets in a 24 hour period. Use a migraine cap, peppermint oil on temples as needed. Migraine Chronic Maintenance Start Amytriptyline 10 mg PO at bedtime daily. Continue with Cylobenzaprine 10mg QHS for neck pain. Start Magnesium 400mg qhs Orders: Orders MR head/brain wo con 10/05/24 G25.2 - Other specified forms of tremor, G95.9 - Disease of spinal cord, unspecified, Z86.69 - Personal history of other diseases of the nervous system and sense organs PT Evaluation and Treatment 10/05/24 M48.00 - Spinal stenosis, site unspecified Medications: New sumatriptan succinate take 1 tab at onset of headache; if no relief may repeat 1 tab after at least 2 hrs; max = 4 tabs/24 hr PO 12 tabs 1RF Z86.69 - Personal history of other diseases of the nervous system and sense organs amitriptyline 10 mg PO BEDTIME 30 tabs 1RF Migraines MDD 10mg Z86.69 - Personal history of other diseases of the nervous system and sense organs Refilled sennosides (senna) 8.6 mg PO BEDTIME PRN 90 tabs 0RF constipation 90 days Patient Instructions: Sleep Hygiene provided: set a scheduled bedtime and wake time to help regulate the circadian rhythm and balance the release of pituitary hormones. Sleep in a dark room, temperatures below 68 degrees, and no devices n bed. Limit caffeinated products 6 hours prior to bed, and limit fluids 2-4 hours prior to bed. Gentle night yoga, diffusing essential oils, and playing soft music can be relaxing. Migraine protocol: Take Sumatriptan at onset of acute migraine, if it does not abort within 2 hours you may take one additional tablet. Do not exceed more than 4 tablets within 24 hours. Chronic maintenance for migraines continue taking amitiptyline 10mg PO at bedtime daily. May wear a migraine cap and go to lay down for 20min. May apple peppermint oil to the temples as needed. Coding Level of Care Code Est Pt Level 4 (35835) Complex EM visit Add On G2211 Diagnoses Multilevel spinal stenosis M48.00 Numbness and tingling in right hand R20.0; R20.2 Hyper reflexia R29.2 Hx of migraines Z86.69 Cervical myelopathy G95.9 Hyperreflexia of lower extremity R29.2 Abnormal magnetic resonance imaging of spinal cord R90.89 Time Spent (min) 40 Comment Evaluation
== END 2024-10-05 09:11 | disposition home or self-care (01) ==
LOC: HO.HSMS 08:03
PROVIDERS: PCP Internal Medicine; Visit Provider Physician Assistant Medical
DX: M48.00 Spinal stenosis, site unspecified (principal); R20.0 Anesthesia of skin; R20.2 Paresthesia of skin; R29.2 Abnormal reflex; Z86.69 Personal history of other diseases of the nervous system and sense organs; G95.9 Disease of spinal cord, unspecified; R90.89 Other abnormal findings on diagnostic imaging of central nervous system
CPT/HCPCS: 99214; G2211

== ENCOUNTER → 2024-10-05 08:02 | Outpatient (BNVA) | payer OTHER, SELFPAY | PROVIDERS: PCP Internal Medicine; Visit Provider Physician Assistant Medical | DX: G95.9 Disease of spinal cord, unspecified (principal); R29.2 Abnormal reflex; R90.89 Other abnormal findings on diagnostic imaging of central nervous system; M48.00 Spinal stenosis, site unspecified; R20.0 Anesthesia of skin; R20.2 Paresthesia of skin; Z86.69 Personal history of other diseases of the nervous system and sense organs | CPT/HCPCS: 99212 ==

== ENCOUNTER → 2024-10-13 18:19 | Outpatient (BNV) | payer OTHER, SELFPAY | PROVIDERS: PCP Internal Medicine; Visit Provider Radiology Diagnostic Radiology | DX: R25.1 Tremor, unspecified (principal) | CPT/HCPCS: 70551 ==

== ENCOUNTER 2024-10-13 18:25 | Outpatient (REF) | payer OTHER, SELFPAY ==
--- NOTE | ~2024-10-13 | MR_ITS ---
EXAMINATION: MR BRAIN WITHOUT CONTRAST CLINICAL INFORMATION: Tremors. Vertigo. Numbness. Paresthesias. COMPARISON: None available. TECHNIQUE: MRI of the brain was obtained using routine sequences without contrast. FINDINGS: No restricted diffusion. No acute intracranial hemorrhage, mass effect, midline shift, hydrocephalus or herniation. Nation-white matter differentiation is normal. Posterior cranial fossa contents demonstrated no signal abnormality or gross masses. CSF prominence, right Meckel's cave. Sellar/suprasellar region demonstrated no signal abnormality or masses. Craniocervical junction is intact and normal. Midline structures are normal. No susceptibility signal abnormality within the midbrain/substancia nigra/red nucleus. Flow-void signal within the main cerebral vessels is normal Edentulous. MR/MR head/brain wo con IMPRESSION: No acute brain abnormality. Small meningocele, right Meckel's cave. Electronically signed by: Chandan Sesay MD 10/14/2024 07:10 AM EDT
--- OUTSIDE RECORDS SUMMARY | 2024-10-13 19:13 | XMS_ITS | Encounter Summary ---
Author Organization [employer] Address [address] [place] [address] Care Team Providers Care Fur Tanner Name Role Phone Unavailable Primary Care Provider Unavailabl e Encounter Details Date Type Department Care Team (Late st Contact Info) Description 06/11/2022 Abstract [facility] [address] [place] [address] Dental, Provider, DDS Social History Tobacco Use [...]
--- OUTSIDE RECORDS SUMMARY | 2024-10-13 19:13 | XMS_ITS | Clinical Summary ---
Author Organization [employer] Address [address] [place] [address] Care Team Providers Care Spin Instructor Name Role Phone Unavailable Primary Care Provider [...] patient's age to complete this topic Insurance [facility] MEDICAID STAND ADULT
== END 2024-10-13 18:26 | disposition home or self-care (01) ==
LOC: HO.MRI 18:25
PROVIDERS: PCP Internal Medicine; Visit Provider Physician Assistant Medical
DX: G25.2 Other specified forms of tremor (principal); G95.9 Disease of spinal cord, unspecified; Z86.69 Personal history of other diseases of the nervous system and sense organs
CPT/HCPCS: 70551

== ENCOUNTER 2024-10-27 16:22 | Outpatient (AMB) | payer OTHER, SELFPAY ==
--- NOTE | 2024-10-27 16:28 | MHC.PC.OV ---
Vital Signs 10/27/24 16:29 Height 4 ft 10 in Weight 118 lb BMI 24.7 BP 112/78 Blood Pressure Location Lt brachial Position Sitting Intake Visit Reasons: depression Vp Outcomes Required: No Accompanied by: Self / Same As Patient Allergies acetaminophen [ACETAMINOPHEN] Adverse Reaction (Intermediate, Verified 10/27/24 16:38) INCREASES INTERSTITIAL CYSTITIS/vomiting Medication List - Last Reconciled 10/27/24 by Mee Villegas MD amitriptyline 10 mg PO BEDTIME MDD 10mg Brace,wrist (Wrist Brace - one) As directed buprenorphine-naloxone 8-2 mg (Suboxone) 10 mg sublingual DAILY cyclobenzaprine 10 mg PO BEDTIME dextroamphetamine-amphetamine 20 mg 1 tab PO TID nicotine 1 patch transdermal Q24H 14 days paroxetine HCl 60 mg PO BEDTIME sennosides (senna) 8.6 mg PO BEDTIME PRN 90 days sumatriptan succinate take 1 tab at onset of headache; if no relief may repeat 1 tab after at least 2 hrs; max = 4 tabs/24 hr PO Tobacco use date assessed: 10/27/24 Dental Screening Dental Screen Date: 10/27/24 Did you have a dental visit in the last 12 months?: No Did you have a dental problem in the last 6 months where you did not have access to dental care?: No Was dental information given to patient?: Patient declined HPI HPI Comments History of Present Illness Details The patient is a 44-year-old female presenting with follow-up needs for depression management and migraine treatment. She has been experiencing elevated depression scores on the PHQ-9, even amidst active participation in counseling sessions. The patient's migraines have persisted despite attempts with amitriptyline, offering no significant improvement, hence the need for further evaluation under neurologic care. She deals with bladder disease, which limits her ability to use Tylenol due to vomiting, triggering worsening of bladder symptoms. The upcoming neurology consult aims to reevaluate previous findings of potential fluid collection, which were noted in October but deemed non-impactful on other neurological functions. Social history components highlight considerable stress from financial constraints linked to her inability to work, alongside ongoing disputes with Social Security. [facility] Medical History Abnormal magnetic resonance imaging of spinal cord Hyperreflexia of lower extremity Opiate dependence Family history of hypertension Polyarthralgia Ganglion cyst of dorsum of left wrist JAME III (cervical intraepithelial neoplasia grade III) with severe dysplasia Hx of migraine headaches History of anxiety History of depression PTSD (post-traumatic stress disorder) H/O bipolar disorder Interstitial cystitis History of fibromyalgia Surgical History History of tooth extraction Hx of hand surgery Hx of cystoscopy Hx of cystoscopy Hx of section History of loop electrical excision procedure (LEEP) Hx of tubal ligation H/O abdominal hysterectomy Family History Mother Lung cancer Maternal Aunt Ovarian cancer Maternal Grandmother History of breast cancer Family/Other Mental health disorder Substance use disorder Father No problems noted. Social History Housing: Apartment Are you a primary rn primary care to a significant other at home: No Do you presently have visiting nurse or other home services: No Alcohol intake: former Comment: all counts correct Patient Tobacco Use Status: Current everyday Tobacco user Tobacco use type: Cigarette Cigarettes Per Day: 4 Years Smoked: 31 e-Cigarette/Vaping Use: Never Used Second Hand Smoke Exposure: No service: No Current occupational status: unemployed Current occupation: right hand Cognitive needs: No Hearing needs: No Vision needs: No Questionnaire PHQ-9 Over the last 2 weeks, how often have you been bothered by any of the following problems? 1. Little interest or pleasure in doing things: more than half the days 2. Feeling down, depressed, or hopeless: more than half the days 3. Trouble falling or staying asleep, or sleeping too much: nearly every day 4. Feeling tired or having little energy: nearly every day 5. Poor appetite or overeating: nearly every day 6. Feeling bad about yourself - or that you are a failure or have let yourself or your family down: several days 7. Trouble concentrating on things, such as reading the newspaper or watching television: several days 8. Moving or speaking so slowly that other people could have noticed. Or the opposite - being so fidgety or restless that you have been moving around a lot more than usual: nearly every day 9. Thoughts that you would be better off or of hurting yourself in some way: not at all Total score: 18 Depression Screening Interpretation: Positive (no suicidal thoughts) Depression Screening Follow-up: Existing condition and Follow-up Visit Requested Depression Screening Done: Yes 44617 - PHQ-9 Billing: Yes Source: Developed by Drs. Dequan Escobedo, Mary Gibbons, Saud Knott and colleagues, with an educational gentry from [employer]. Thrive Questionnaire Date Thrive assessed: 10/27/24 I am a: Patient What is your living situation today?: I have a steady place to live Within the past 12 months, did the food you bought not last and you didn't have the money to get more?: Never true Within the past 12 months, did you worry whether your food would run out before you got money to buy more?: Never true Do you have trouble paying for medicines?: No Do you have trouble getting transportation to medical appointments?: Yes Do you have trouble paying your heating and electricity bill?: Yes Do you have trouble taking care of your child, family member or friend?: No Do you have trouble with day-to-day activities such as bathing, preparing meals, shopping, managing finances, etc.?: Yes Are you currently unemployed and looking for a job?: I choose not to answer this question Are you interested in more education?: No Please select the resources that you would like help with: None Currently or been in a relationship where the following occur: No concerns reported THRIVE Score: 2 AUDIT C Alcohol Use Questionnaire (AUDIT-C) 1. How often do you have a drink containing alcohol?: Never Total Score: 0 Score Reviewed/Action Taken: No SAUL-7 AMB Questionnaire SAUL-7 Date SAUL - 7 assessed: 10/27/24 Feeling nervous, anxious, or on edge: 1 = Several days Not being able to stop or control worryin = Several days Worrying too much about different things: 3 = Nearly every day Trouble relaxin = More than half the days Being so restless that it is hard to sit still: 2 = More than half the days Becoming easily annoyed or irritable: 0 = Not at all Feeling afraid as if something awful might happen: 0 = Not at all Total SAUL-7 score (0-4 normal; 5-9 mild; 10-14 moderate; 15-21 severe): 9 Source: Developed by Drs. Dequan Escobedo, Mary Gibbons, Saud Knott and colleagues, with an educational gentry from [employer]. SAUL-7 Assessment Billing SAUL-7 Assessment Tool: SAUL-7 Assessment 42030 Review of Systems Const All systems reviewed & are unremarkable except as noted in HPI and below Card Denies chest pain at rest, Denies chest pain with activity, Denies edema, Denies irregular heart rhythm, Denies claudication, Denies dyspnea, Denies dyspnea on exertion, Denies orthopnea, Denies paroxysmal nocturnal dyspnea and Denies slow heart rate Resp Denies cough, Denies dyspnea and Denies dyspnea on exertion GI Denies abdominal pain, Denies change in bowel habits, Denies excessive flatus, Denies nausea and Denies vomiting Denies urinary incontinence, Denies urinary hesitancy and Denies urinary urgency Physical exam (Primary Care) BMI result Body Mass Index 24.7 Tobacco/Smoking Status: Tobacco use Status Tobacco use date assessed 04/23/24 04/23/24 17:43 Patient Tobacco Use Status Current everyday Tobacco 04/23/24 17:43 Tobacco use type Cigarette 04/23/24 17:43 e-Cigarette/Vaping Use Never Used 04/23/24 17:43 Depression Screening Interpretation: Positive (no suicidal thoughts) Depression Screening Follow-up: Existing condition and Follow-up Visit Requested Thrive Assessment: Date of Thrive Assessment Date Thrive assessed 04/23/24 06/11/24 15:55 Currently or been in a relationship where the following occur: No concerns reported Resp Effort & Inspection: normal respiratory effort Auscultation: clear to auscultation bilaterally Cardio Jugular venous distension: no JVD Rate: regular rate Rhythm: regular rhythm Heart sounds: S1 normal heart sound present and S2 normal heart sound present Extrem General: Yes full ROM Coding Level of Care Code Est Pt Level 4 (75139) Complex EM visit Add On G2211 Diagnoses Cervical myelopathy G95.9 Opioid dependence on agonist therapy F11.20 Mild recurrent major depression F33.0 Additional Codes PHQ-9 - 97656 - PHQ-9 Billing: Yes ([id number]) SAUL-7 Assessment Billing - SAUL-7 Assessment Tool: SAUL-7 Assessment 76424 ([id number]) Time Spent (min) 24 Assessment & Plan Assessment & Plan (1) Cervical myelopathy: Code(s): G95.9 - Disease of spinal cord, unspecified Category: Medical (2) Opioid dependence on agonist therapy: Code(s): F11.20 - Opioid dependence, uncomplicated Category: Medical (3) Mild recurrent major depression: Code(s): F33.0 - Major depressive disorder, recurrent, mild Category: Medical Plan To manage depression, PHQ-9 assessments will monitor progress alongside continuous counseling sessions. Addressing migrainous episodes, neurology follow-up will guide further therapeutic adjustments post unsuccessful amitriptyline trial. Her allergy mandates avoidance of Tylenol to prevent exacerbation of bladder symptoms. Smoking reduction was discussed as an ongoing target for health maintenance. Patient was informed and verbally consented to the use of an ambient scribe for clinic note documentation during this visit. Conversational exchanges emphasized the need for migraine management improvement secondary to amitriptyline's inefficacy. Collaborative care with neurology is critical, considering the prior outpatient assessments of fluid collection near the meninges. Depression management remains vital, especially due to life stressors?namely, financial strain?stemming from unresolved SSI issues. Her current medication regimen, including Suboxone and Flexeril, was noted without adjustments. Smoking habits were addressed, with reduction encouraged. Concerns about coordination of multidisciplinary care and the patient's social circumstances were noted, advising continued advocacy for SSI support. Patient Instructions: - Continue attending counseling sessions to manage depression. - Avoid all Tylenol products to prevent adverse reactions. - Prepare for neurology follow-up in March for migraine evaluation. - Attempt to reduce smoking frequency for health benefits. - Maintain daily mental health activities; report any escalation in symptoms. - Communicate any acute changes in health promptly for reassessment.
[2024-10-27 16:29] VITALS: BP 112/78; BMI 24.7
== END 2024-10-27 17:48 | disposition home or self-care (01) ==
LOC: HO.HMCH 16:22
PROVIDERS: PCP Internal Medicine; Visit Provider Internal Medicine
DX: G95.9 Disease of spinal cord, unspecified (principal); F11.20 Opioid dependence, uncomplicated; F33.0 Major depressive disorder, recurrent, mild

== ENCOUNTER → 2024-10-27 16:22 | Outpatient (BNVA) | payer OTHER, SELFPAY | PROVIDERS: PCP Internal Medicine; Visit Provider Internal Medicine | DX: G43.909 Migraine, unspecified, not intractable, without status migrainosus (principal); G95.9 Disease of spinal cord, unspecified; F11.20 Opioid dependence, uncomplicated; F33.0 Major depressive disorder, recurrent, mild | CPT/HCPCS: 96127; 99212 ==

== ENCOUNTER 2024-11-24 14:27 | Outpatient (REF) | payer OTHER, SELFPAY ==
--- OUTSIDE RECORDS SUMMARY | 2024-11-24 15:35 | XMS_ITS | Encounter Summary ---
Author Organization [employer] Address [address] [place] [address] Care Team Providers Care Fire Claims Adjuster Name Role Phone Unavailable Primary Care Provider Unavailabl e Encounter Details Date Type Department Care Team (Late st Contact Info) Description 06/11/2022 Abstract [facility] ADULT DENTAL [address] [place] [address] Dental, Provider, DDS Social History Tobacco Use [...]
--- OUTSIDE RECORDS SUMMARY | 2024-11-24 15:35 | XMS_ITS | Clinical Summary ---
Author Organization [employer] Address [address] [place] [address] Care Team Providers Care House Worker Name Role Phone Unavailable Primary Care Provider [...] patient's age to complete this topic Insurance [facility] MEDICAID STAND ADULT
== END 2024-11-24 14:28 | disposition home or self-care (01) ==
LOC: HO.HOSX 14:27
PROVIDERS: Visit Provider Orthopaedic Surgery
DX: Z13.89 Encounter for screening for other disorder (principal)

== ENCOUNTER 2024-11-25 10:47 | Outpatient (AMB) | payer OTHER, SELFPAY ==
--- NOTE | 2024-11-25 10:50 | MHC.OFFVIS ---
Vital Signs 11/25/24 10:57 Height 4 ft 10 in Weight 118 lb BMI 24.7 Intake Visit Reasons: Pre-Discuss Surgery Intake Note: Ginette 44 yr old female presents today to review EMG study of right hand and discuss if surgery is needed. FINDINGS: All motor and sensory nerves tested showed normal latencies, amplitudes and conduction velocities. Right ulnar motor nerve did not show any slowing or conduction block across elbow. Concentric needle EMG was performed in selected muscles of the right upper extremity. Study did not reveal signs of electric abnormalities as shown in the table above. All motor and sensory nerves tested showed normal latencies, amplitudes and conduction velocities. Allergies acetaminophen [ACETAMINOPHEN] Adverse Reaction (Intermediate, Verified 10/27/24 16:38) INCREASES INTERSTITIAL CYSTITIS/vomiting HPI HPI Pre-Discuss Surgery: Details: Ginette is a 44 year old ambidextrous woman who returns today for a NCS review of her right hand numbness. With regards to her hands she complains of numbness in the right hand to all fingers. More dense numbness median nerve and intermittent in the small and ring fingers. She also complains of weakness in her hands. She says her middle finger is so bothersome she wants to cut it off . She also complains of pain in the base of the right thumb & right radial-sided wrist pain, worse with pinching & gripping activities. She received a right basal joint injection on 08/12/24, with only some relief. 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 She is on an Opioid contract for Suboxone, she has been on since 2014. She has a Hx of cervical myelopathy and a Hx of ACDF done by a crime scene specialist. She says there is a lot they missed & didn't do . She says she has no change in her numbness or weakness following her surgery, and her symptoms have worsened, and is now accompanied by recurrent migraines. She is currently not working, and has been out of work for ~15 years now. *Please see my note from 08/12/24 for more information* [facility] Medical History Abnormal magnetic resonance imaging of spinal cord Hyperreflexia of lower extremity Opiate dependence Family history of hypertension Polyarthralgia Ganglion cyst of dorsum of left wrist JAME III (cervical intraepithelial neoplasia grade III) with severe dysplasia Hx of migraine headaches History of anxiety History of depression PTSD (post-traumatic stress disorder) H/O bipolar disorder Interstitial cystitis History of fibromyalgia Surgical History History of tooth extraction Hx of hand surgery Hx of cystoscopy Hx of cystoscopy Hx of section History of loop electrical excision procedure (LEEP) Hx of tubal ligation H/O abdominal hysterectomy Family History Mother Lung cancer Maternal Aunt Ovarian cancer Maternal Grandmother History of breast cancer Family/Other Mental health disorder Substance use disorder Father No problems noted. Social History Housing: Apartment Are you a primary lead care manager to a significant other at home: No Do you presently have visiting nurse or other home services: No Alcohol intake: former Comment: all counts correct Patient Tobacco Use Status: Current everyday Tobacco user Tobacco use type: Cigarette Cigarettes Per Day: 4 Years Smoked: 31 e-Cigarette/Vaping Use: Never Used Second Hand Smoke Exposure: No service: No Current occupational status: unemployed Current occupation: right hand Cognitive needs: No Hearing needs: No Vision needs: No Physical Exam Vital Signs: BMI result Body Mass Index 24.7 Extrem Other: Evaluation of Right Upper Extremity: The patient is alert, oriented, and in no acute distress Neuro: Dense numbness in the median nerve distribution, normal sensation in the ulnar nerve distribution today in clinic. Numbness extending down into the mid-palm at the base of the index and middle fingers No thenar or intrinsic wasting She still has APB muscle belly firing and good finger cross She has some flattening of the thenar eminence Vascular: Cap refill brisk ROM: She can make a fist and extend all her digits Most tender over the 1st dorsal compartment over the radial styloid Positive Natan test on the right Negative Natan test on the left Positive shoulder sign on the right Tender over the basal joint on the right Not tender over the A1 justin No locking or catching Nerve Conduction Study: Right-side only FINDINGS: All motor and sensory nerves tested showed normal latencies, amplitudes and conduction velocities. Breann Mcdaniel MD, HENRIK 08/21/24 IMPRESSION:? 1. Right mid to lower cervical radiculopathy. 2. Mild right ulnar neuropathy across cubital tunnel. Dakota Bravo MD 11/01/2022 Assessment & Plan Assessment & Plan (1) De Quervain's tenosynovitis, right: Code(s): M65.4 - Radial styloid tenosynovitis [de Quervain] Category: Medical (2) Arthritis of carpometacarpal (CMC) joint of right thumb: Code(s): M18.11 - Unilateral primary osteoarthritis of first carpometacarpal joint, right hand Category: Medical (3) Numbness and tingling in right hand: Code(s): R20.0 - Anesthesia of skin; R20.2 - Paresthesia of skin Category: Medical (4) Cervical myelopathy: Code(s): G95.9 - Disease of spinal cord, unspecified Category: Medical (5) Fibromyalgia: Code(s): M79.7 - Fibromyalgia Category: Medical Plan Assessment & Plan: 1. Right De Quervains tenosynovitis Positive Natan test This is her chief complaint today I educated her about this condition I discussed operative and non-operative treatment options The patient would like to proceed with an injection I discussed activity modification, they should limit or avoid any heavy or repetitive pinching or gripping activities She should continue to wear her comfort cool braces with daily activity Injection #1: The risks and benefits of a steroid injection including but not limited to risk of damage to blood vessels, nerves, tendons, infection, skin bleaching, failure to improve symptoms, increased pain, and possible need for further injections or other intervention were discussed with the patient and the patient wishes to proceed with the steroid injection. Once consent was obtained, I sterilely prepped the area over the 1st dorsal compartment of the Right thumb. I then injected the 1st dorsal compartment with a combination of 1 mL of dexamethasone (4mg/ml), and 1% lidocaine. The patient tolerated the procedure well with no complications and good resolution of their symptoms prior to leaving clinic. If the patient continues to have pain 6-8 weeks following this injection, they may call to schedule appointment to discuss alternative treatment options 2. Right basal joint arthritis, S/P injection Date of injection: 08/12/24 3. Left basal joint arthritis 4. Right Cubital tunnel syndrome, mild Symptoms intermittent and only occasional Not seen on NCS from 08/21/24 5. Right hand numbness In the median nerve distribution With dense numbness No carpal tunnel found on NCS from 08/21/24 6. Cervical Myelopathy, S/P C5-C6, and C6-C7 ACDF DOS: 06/13/23 She is managing this with a crime scene specialist Scribed for Debra Mitchell MD by Wilfredo Stephens, certified medical coding specialist, on 11/25/24 at 11:20 AM, EST. Orders: Orders XR hand RT min 3V Today M79.641 - Pain in right hand Coding Level of Care Code Est Pt Level 4 (83427) Diagnoses De Quervain's tenosynovitis, right M65.4 Arthritis of carpometacarpal (CMC) joint of right thumb M18.11 Numbness and tingling in right hand R20.0; R20.2 Cervical myelopathy G95.9 Fibromyalgia M79.7
[2024-11-25 10:57] VITALS: BMI 24.7
--- OUTSIDE RECORDS SUMMARY | 2024-11-25 11:54 | XMS_ITS | Clinical Summary ---
Author Organization [email or web address] Address [address] [facility] [address] [place] [address] Care Team Providers Care Forest Fire Control Officer Name Role Phone Unavailable Primary Care Provider [...] patient's age to complete this topic Insurance [facility] MEDICAID STAND ADULT
--- OUTSIDE RECORDS SUMMARY | 2024-11-25 11:54 | XMS_ITS | Encounter Summary ---
Author Organization [employer] Address [address] [place] [address] Care Team Providers Care Sap Business Analyst Name Role Phone Unavailable Primary Care Provider Unavailabl e Encounter Details Date Type Department Care Team (Late st Contact Info) Description 06/11/2022 Abstract [facility] ADULT DENTAL [address] [place] [address] Dental, Provider, DDS Social History Tobacco Use [...]
== END 2024-11-25 12:51 | disposition home or self-care (01) ==
LOC: HO.HOS 10:48
PROVIDERS: PCP Internal Medicine; Visit Provider Orthopaedic Surgery
DX: M65.4 Radial styloid tenosynovitis [de Quervain] (principal); M18.11 Unilateral primary osteoarthritis of first carpometacarpal joint, right hand; R20.0 Anesthesia of skin; R20.2 Paresthesia of skin; G95.9 Disease of spinal cord, unspecified; M79.7 Fibromyalgia
CPT/HCPCS: 20550; 99214

== ENCOUNTER 2024-11-25 10:47 | Outpatient (REF) | payer OTHER, SELFPAY ==
--- NOTE | ~2024-11-25 | XR_ITS ---
EXAMINATION: XR HAND 3 OR MORE VIEWS RIGHT HISTORY: M79.641 - Pain in right hand COMPARISON: There are no prior studies available for comparison. FINDINGS: Four views of the right hand are submitted. Osseous mineralization is normal. There is no fracture or dislocation. There is mild degenerative change of the DIP joint of the ring finger. The remaining joint spaces are maintained. The soft tissues are unremarkable. XR/XR hand RT min 3V IMPRESSION: Mild degenerative change of the DIP joint of the ring finger. Otherwise unremarkable examination of the right hand. Electronically signed by: Dequan Morelos MD 11/25/2024 01:07 PM EDT
== END 2024-11-25 10:48 | disposition home or self-care (01) ==
LOC: HO.HOSX 10:47
PROVIDERS: PCP Internal Medicine; Visit Provider Orthopaedic Surgery
DX: M65.4 Radial styloid tenosynovitis [de Quervain] (principal); M79.641 Pain in right hand; M18.11 Unilateral primary osteoarthritis of first carpometacarpal joint, right hand; R20.0 Anesthesia of skin; G95.9 Disease of spinal cord, unspecified; M79.7 Fibromyalgia
CPT/HCPCS: 20550; 73130; 99212; J1100; J2003

== ENCOUNTER → 2024-11-25 10:56 | Outpatient (BNV) | payer OTHER, SELFPAY | PROVIDERS: PCP Internal Medicine; Visit Provider Radiology Diagnostic Radiology | DX: M79.641 Pain in right hand (principal) | CPT/HCPCS: 73130 ==

== ENCOUNTER 2025-01-01 09:58 | Outpatient (AMB) | payer OTHER, SELFPAY ==
[2025-01-01 10:00] VITALS: BMI 25.1
--- NOTE | 2025-01-01 10:00 | MHC.OFFVIS ---
Vital Signs 01/01/25 10:00 Height 4 ft 10 in Weight 120 lb BMI 25.1 Intake Visit Reasons: Follow up Intake Note: Patient presents follow up regarding questions about specialist Allergies acetaminophen (ACETAMINOPHEN) Adverse Reaction (Intermediate, Verified 01/01/25 10:01) INCREASES INTERSTITIAL CYSTITIS/vomiting HPI Comments Details: 44y/o L. handed female comes for evaluation of migraines via tele-health. 10/2024 MRI reviewed with patient to r/o MS. MR/MR head/brain wo con IMPRESSION: No acute brain abnormality. Small meningocele, right Meckel's cave. She had Cervical spine surgery in 2022 - C5-6 and C6-7. she still has persistent and worsening numbness and weakness in her RUE r. hand and first 3 digits, with burning, numbness and tingling radiating into palm, she wears a glove. She c/o neck and back pain. She feels weakness in her hands bilaterally says she has no strength. Her headaches are worse as night, and lasting inot the days. She says the Amitriptyline 10mg and Sumatriptan 50mg with acute onset are not sufficient for pain control. She continues to have pain on movement of her neck and she is taking cyclobenzaprine 10mg takes the edge off however does not alleviate the pain completely. Cystitis: She was taking her sumatriptan 50mg po once per acute onset of headache, we discussed taking a second dose within 2 hours if the headache does not abort and not to exceed 2 doses totaling 100mg po in a 24 hour period. She says her vision has been consistently blurry since starting Elmiron for cystitis. She has urgency, frequency and burning upon urination. Denies hematuria and low back pain, she was on macrobid, however is now having the symptoms of her usual bladder infections which she has had for years. Encouraged patient to go into the ED if she has a fever, blood in her urine, or low back pain. Chronic Migraines / Headaches: She also has increased headaches since her surgery which started in posterior neck and radiates to the whole head. she has daily headaches lasting 3-4 hrs ( if untreated ). she always had headaches but increased in frequency since surgery. she says she used to take 3-4 advils which helped and the headaches are worse at night. Characteristic of Migraine: Migraines in the nape of the neck, and radiates up to the parietal lobes, her jaw locks up and with pressure and it gets so severe she wants to drill a hole in her head to relieve the pressure, 3-4 x a week, at night after dinner, lasting 2hours through the night, and wakes up at 2-3am with pain and takes advil, and scratches her face in the middle of the night.She has photo/phono-phobia, denies nausea, vomiting and vertigo. H/o substance abuse: Markell Daigle, and Roldan Agee, therapist every two weeks. Psychiatry Cass Canseco at [facility] every 3 months. Suboxone BID 4am and 2 -3pm and Adderall is taken BID 7am and 2-3 pm. Constipation has a BM 1x per week and hard stool. She goes to [facility] in [address] for substance abuse disorder. [facility] Medical History Abnormal magnetic resonance imaging of spinal cord Hyperreflexia of lower extremity Opiate dependence Family history of hypertension Polyarthralgia Ganglion cyst of dorsum of left wrist JAME III (cervical intraepithelial neoplasia grade III) with severe dysplasia Hx of migraine headaches History of anxiety History of depression PTSD (post-traumatic stress disorder) H/O bipolar disorder Interstitial cystitis History of fibromyalgia Surgical History History of tooth extraction Hx of hand surgery Hx of cystoscopy Hx of cystoscopy Hx of section History of loop electrical excision procedure (LEEP) Hx of tubal ligation H/O abdominal hysterectomy Family History Mother Lung cancer Maternal Aunt Ovarian cancer Maternal Grandmother History of breast cancer Family/Other Mental health disorder Substance use disorder Father No problems noted. Social History Housing: Apartment Are you a primary plant care worker to a significant other at home: No Do you presently have visiting nurse or other home services: No Alcohol intake: former Comment: all counts correct Patient Tobacco Use Status: Current everyday Tobacco user Tobacco use type: Cigarette Cigarettes Per Day: 4 Years Smoked: 31 e-Cigarette/Vaping Use: Never Used Second Hand Smoke Exposure: No service: No Current occupational status: unemployed Current occupation: right hand Cognitive needs: No Hearing needs: No Vision needs: No Physical Exam Vital Signs: BMI result Body Mass Index 25.1 Telehealth Telehealth Telehealth Platform: Telephone (25) Location of provider rendering services: practice address Location of patient: address on file Patient Identification confirmed using: Name, : Yes Telehealth method: voice only Patient verbally consented to treatment: Yes Patient verbally consented to billing insurance company: Yes Patient informed of any privacy concerns related to visit: Yes Minutes spent on Phone/Video with Pt.: 25 Results Reviewed Results Reviewed: MR/MR head/brain wo con IMPRESSION: No acute brain abnormality. Small meningocele, right Meckel's cave. Electronically signed by: Chandan Sesay MD 10/14/2024 07:10 AM EDT RP Assessment & Plan Assessment & Plan (1) Chronic headaches: Code(s): R51.9 - Headache, unspecified; G89.29 - Other chronic pain Category: Medical Qualifiers: Headache type: unspecified Intractability: intractable Qualified Code(s): R51.9 - Headache, unspecified; G89.29 - Other chronic pain (2) Multilevel spinal stenosis: Code(s): M48.00 - Spinal stenosis, site unspecified Category: Medical (3) Numbness and tingling in right hand: Code(s): R20.0 - Anesthesia of skin; R20.2 - Paresthesia of skin Category: Medical Plan Reviewed MRI 03/2023 T spine, spondylosis and stenosis will compare with new MRI 10/2024 small meningocele in meckles cave reviewed with Pt. Migraine Cervicalgia Sumatriptan 50mg at onset of acute migraine, may take one additional tablet within 2 hours if migraine does not abort. May not exceed more than 2 tablets in a 24 hour period. Use a migraine cap, peppermint oil on temples as needed. Reviewed medication adherence today with patient. Migraine Chronic Maintenance increased Amitriptyline 10mg to 20mg po at bedtime daily. Continue with Cylobenzaprine 10mg QHS for neck pain, (muscle relaxer). Start Magnesium 400mg qhs and B6 200mg PO daily at bedtime. Urology referral for Cystis- Chronic bladder infections, and take medications for cystitis as prescribed. [facility] for psychosocial support. Orders: Referrals Urology Referral R30.0 - Dysuria, R35.0 - Frequency of micturition, R39.15 - Urgency of urination Medications: Changed From sumatriptan succinate take 1 tab at onset of headache; if no relief may repeat 1 tab after at least 2 hrs; max = 4 tabs/24 hr PO 12 tabs 1RF Z86.69 - Personal history of other diseases of the nervous system and sense organs To sumatriptan succinate 50 mg orally; x2 for a total of 100mg in a 24 hour period, do not exceed 100mg in a 24 hour period. 12 tabs 1RF migraine MDD 100mg Z86.69 - Personal history of other diseases of the nervous system and sense organs From amitriptyline take one tablet at bedtime daily for chronic headaches. 10 mg (0.4 x 25 mg) PO BEDTIME 90 days 36 tabs 3RF Migraines MDD 10mg Z86.69 - Personal history of other diseases of the nervous system and sense organs To amitriptyline take one tablet at bedtime daily for chronic headaches. 25 mg PO ONCE 90 days 90 tabs 3RF Migraines MDD 25mg Z86.69 - Personal history of other diseases of the nervous system and sense organs From amitriptyline 10 mg PO BEDTIME 30 tabs 1RF Migraines MDD 10mg Z86.69 - Personal history of other diseases of the nervous system and sense organs To amitriptyline take one tablet at bedtime daily for chronic headaches. 10 mg (0.4 x 25 mg) PO BEDTIME 90 days 36 tabs 3RF Migraines MDD 10mg Z86.69 - Personal history of other diseases of the nervous system and sense organs Patient Instructions: Sleep Hygiene provided: set a scheduled bedtime and wake time to help regulate the circadian rhythm and balance the release of pituitary hormones. Sleep in a dark room, temperatures below 68 degrees, and no devices n bed. Limit caffeinated products 6 hours prior to bed, and limit fluids 2-4 hours prior to bed. Gentle night yoga, diffusing essential oils, and playing soft music can be relaxing. Migraines take all prescribed medications on time and as indicated. F/U with psychiatrist and behavioral health for support. F/U with Urologist. Urgent referral is submitted, labs are pending. Coding Level of Care Code Tele Est Pt Level 4 (32103) Complex EM visit Add On G2211 Diagnoses Chronic intractable headache, unspecified headache type R51.9; G89.29 Headache type: unspecified Intractability: intractable Multilevel spinal stenosis M48.00 Numbness and tingling in right hand R20.0; R20.2 Time Spent (min) 25
--- OUTSIDE RECORDS SUMMARY | 2025-01-01 10:15 | XMS_ITS | Clinical Summary ---
Author Organization [employer] Address [address] [place] [address] Care Team Providers Care Organizational Effectiveness Consultant Name Role Phone Unavailable Primary Care Provider [...] 1981 HIV Screening 1981 SDOH Screening 1981 Disability Screening 1981 Alcohol/Substance Use Screening 1993 Tobacco Screening 1993 Family Planning (PISQ) 1996 Hepatitis C Screening 1999 DTaP/Tdap/Td Vaccines (1 - Tdap) 2000 Hepatitis B Vaccines (1 of 3 - 19+ 3-dose series) 2000 Pap Smear 2002 Cervical Cancer Screening 2011 HPV/Cotest 2011 Mammogram 2021 COVID-19 Vaccine (1 - 2023-2 5 season) 2024 Influenza Vaccine (Season Ended) 2025 Zoster Vaccines (1 of 2) 2031 RSV [...] patient's age to complete this topic Meningococcal B Vaccine Aged Out No l onger eligible based on patient's age to complete this topic Meningococcal Vaccine Aged Out No angeline noam eligible based on patient's age to complete this topic Pneumococcal Vaccine: Pediat rics (0 to 5 Years) and At-Risk Patients (6 to 49) Years Aged Out No longer eligible b ased on patient's age to complete this topic RSV under 20 months Aged Out No longe r eligible based on patient's age to complete this topic Rotavirus Vaccines Aged Out No longer eligible based on patient's age to complete this topic Insurance [facility] ST[facility]
== END 2025-01-01 12:52 | disposition home or self-care (01) ==
LOC: HO.HSMS 09:59
PROVIDERS: PCP Internal Medicine; Visit Provider Physician Assistant Medical
DX: R51.9 Headache, unspecified (principal); G89.29 Other chronic pain; M48.00 Spinal stenosis, site unspecified; R20.0 Anesthesia of skin; R20.2 Paresthesia of skin
CPT/HCPCS: 99214; G2211

== ENCOUNTER 2025-02-23 12:31 | Outpatient (REF) | payer OTHER, SELFPAY ==
--- NOTE | ~2025-02-23 | XR_ITS ---
EXAMINATION: XR HAND 3 OR MORE VIEWS RIGHT HISTORY: M79.641 - Pain in right hand COMPARISON: Comparison is made with the prior examination dated 11/25/2024. FINDINGS: Three views of the right hand are submitted. Osseous mineralization is normal. There is no fracture or dislocation. There is mild narrowing of the DIP joint of the 5th finger. Remaining joint spaces are maintained. The soft tissues are unremarkable. XR/XR hand RT min 3V IMPRESSION: Mild narrowing of the DIP joint of the 5th finger. Electronically signed by: Dequan Morelos MD 02/23/2025 02:49 PM EDT
--- OUTSIDE RECORDS SUMMARY | 2025-02-23 14:05 | XMS_ITS | Clinical Summary ---
Author Organization [employer] Address [address] [place] [address] Care Team Providers Care Ramp Boss Name Role Phone Unavailable Primary Care Provider [...] Tobacco Screening 1993 Family Planning (PISQ) 1996 HPV Vaccines (1 - 3-dose series) 1996 Hepatitis C Screening 1999 DTaP/Tdap/Td Vaccines (1 - Tdap) 2000 Hepatitis B Vaccines (1 of 3 - 19+ 3-dose series) 2000 Pap Smear 2002 Cervical Cancer Screening 2011 HPV/Cotest 2011 Mammogram 2021 COVID-19 Vaccine (1 - 2023-2 5 season) 2024 Influenza Vaccine (#1) 2025 Zoster Vaccines (1 of 2) 2031 [...] patient's age to complete this topic Insurance [facility] STAND ADULT
== END 2025-02-23 12:32 | disposition home or self-care (01) ==
LOC: HO.HOSX 12:31
PROVIDERS: PCP Internal Medicine; Visit Provider Orthopaedic Surgery
DX: S62.521A Displaced fracture of distal phalanx of right thumb, initial encounter for closed fracture (principal); S62.171A Displaced fracture of trapezium [larger multangular], right wrist, initial encounter for closed fracture; M18.11 Unilateral primary osteoarthritis of first carpometacarpal joint, right hand; R20.2 Paresthesia of skin; R20.0 Anesthesia of skin; M79.641 Pain in right hand; M79.7 Fibromyalgia; F11.20 Opioid dependence, uncomplicated; W19.XXXA Unspecified fall, initial encounter
CPT/HCPCS: 73130; 99212

== ENCOUNTER 2025-02-23 12:31 | Outpatient (AMB) | payer OTHER, SELFPAY ==
[2025-02-23 12:47] VITALS: BMI 25.1
--- NOTE | 2025-02-23 12:47 | MHC.OFFVIS ---
Vital Signs 02/23/25 12:47 Height 4 ft 10 in Weight 120 lb BMI 25.1 Intake Visit Reasons: OV f/u RT thumb pain last inj 11/25/24 Intake Note: Ginette 44 yr old left hand dominant female who is unemployed, presents today for her right De Quervain's tenosynovitis & arthritis of carpometacarpal (CMC) joint of right thumb s/p injection 11/25/24. States injection did not helped. States her pain has worsen and was not able to move her thumb for 4 days following the last injection. She had a fall 01/29/25, she put her right hand out to break her fall. States she doesnt recall much from her fall since she had fallen asleep. She now has a increase of pain by her thenar muscle and thumb. Allergies acetaminophen (ACETAMINOPHEN) Adverse Reaction (Intermediate, Verified 02/23/25 12:53) INCREASES INTERSTITIAL CYSTITIS/vomiting HPI HPI OV f/u RT thumb pain last inj 11/25/24: Details: Ginette is a 44 year old ambidextrous woman who returns today for her pain in her right thumb following a fall on 01/29/2025. She showed me a picture with significant swelling and ecchymosis in the thenar aspect of her right hand that was taken a few days after the injury. She says the pain is the worst about the MCP joint of the thumb but also she has pain in the IP joint and basal joint. She says it is hurts so badly since this fall that she can not pull up her pants. She also has right De Quervains & basal joint arthritis. She was last seen and received a 1st dorsal compartment injection on 11/25/24. She says she could not move her thumb for the next 4 days afterwards. She is somewhat tearful today and says her 10-year-old dog has started having seizures. Again she still reports numbness in her hands. Recent nerve conduction study from 08/21/2024 was negative. She is on an Opioid contract for Suboxone, she has been on since 2014. She has a Hx of cervical myelopathy and a Hx of ACDF done by a machine shop specialist. She says there is a lot they missed & didn't do . She says she has no change in her numbness or weakness following her surgery, and her symptoms have worsened, and is now accompanied by recurrent migraines. She is currently not working, and has been out of work for ~15 years now. *Please see my note from 08/12/24 for more information* [facility] Medical History Abnormal magnetic resonance imaging of spinal cord Hyperreflexia of lower extremity Opiate dependence Family history of hypertension Polyarthralgia Ganglion cyst of dorsum of left wrist JAME III (cervical intraepithelial neoplasia grade III) with severe dysplasia Hx of migraine headaches History of anxiety History of depression PTSD (post-traumatic stress disorder) H/O bipolar disorder Interstitial cystitis History of fibromyalgia Surgical History History of tooth extraction Hx of hand surgery Hx of cystoscopy Hx of cystoscopy Hx of section History of loop electrical excision procedure (LEEP) Hx of tubal ligation H/O abdominal hysterectomy Family History Mother Lung cancer Maternal Aunt Ovarian cancer Maternal Grandmother History of breast cancer Family/Other Mental health disorder Substance use disorder Father No problems noted. Social History Housing: Apartment Are you a primary personal care service provider to a significant other at home: No Do you presently have visiting nurse or other home services: No Alcohol intake: former Comment: all counts correct Patient Tobacco Use Status: Current everyday Tobacco user Tobacco use type: Cigarette Cigarettes Per Day: 4 Years Smoked: 31 e-Cigarette/Vaping Use: Never Used Second Hand Smoke Exposure: No service: No Current occupational status: unemployed Current occupation: right hand Cognitive needs: No Hearing needs: No Vision needs: No Review of Systems Const All systems reviewed & are unremarkable except as noted in HPI and below Physical Exam Vital Signs: BMI result Body Mass Index 25.1 Const General: no acute distress and alert Orientation/consciousness: patient oriented x3 Neuro General: patient oriented x3 Extrem Other: Evaluation of Right Upper Extremity: The patient is alert, oriented, and in no acute distress ROM: She can make a fist and extend all her digits Positive shoulder sign on the right Most TTP MCP joint of the right thumb She also has some mild tenderness over the IP joint of the thumb and the basal joint of the thumb No 1st dorsal compartment tenderness Not tender over the A1 justin No locking or catching No swelling or ecchymosis Radiographs: 3 views of the right hand, with attention to the right thumb, were taken and viewed by me today in clinic. They show a nondisplaced thumb distal phalanx base fracture, non-displaced and a trapezial body fracture Nerve Conduction Study: Right-side only FINDINGS: All motor and sensory nerves tested showed normal latencies, amplitudes and conduction velocities. Breann Mcdaniel MD, HENRIK 08/21/24 IMPRESSION:? 1. Right mid to lower cervical radiculopathy. 2. Mild right ulnar neuropathy across cubital tunnel. Dakota Bravo MD 11/01/2022 Psych Appearance: grossly normal Affect: normal affect Attitude: cooperative Office Procedures AMB Fracture Care Details: Fracture care trapezium fracture 82013, and thumb distal phalanx fracture 64217 Fracture Billing Code: Fracture Billing Code Assessment & Plan Assessment & Plan (1) Closed fracture of base of distal phalanx of right thumb: Code(s): S62.521A - Displaced fracture of distal phalanx of right thumb, initial encounter for closed fracture Category: Medical (2) Fracture of trapezium of right wrist: Code(s): S62.171A - Displaced fracture of trapezium [larger multangular], right wrist, initial encounter for closed fracture Category: Medical (3) Arthritis of carpometacarpal (CMC) joint of right thumb: Code(s): M18.11 - Unilateral primary osteoarthritis of first carpometacarpal joint, right hand Category: Medical (4) Numbness and tingling in right hand: Code(s): R20.0 - Anesthesia of skin; R20.2 - Paresthesia of skin Category: Medical (5) Fibromyalgia: Code(s): M79.7 - Fibromyalgia Category: Medical (6) Opioid dependence on agonist therapy: Code(s): F11.20 - Opioid dependence, uncomplicated Category: Medical Plan Assessment & Plan: 1. Right thumb distal phalanx base fracture 2. Right trapezium fracture DOI: 01/29/25 status post fall This is her chief complaint today I educated her about this condition I discussed treatment options, no evidence for conservative treatment at this time I recommend splinting, and she is in agreement She was fitted for a thermal molded thumb spica splint which was heated and fit to her today in clinic. She will wear it for the next 2-4 weeks based on symptoms. She will remove this at home to work on ROM, to shower, and at night if she feels comfortable. I discussed activity modification, they should limit or avoid any heavy or repetitive pinching or gripping activities. She is to lift nothing heavier than a cellphone for the next 4 weeks She should work on gentle ROM exercises, and avoid any gripping or strengthening activities She will follow up in 4 weeks, with X-rays, 3V R hand attention thumb, OOP 2. Right De Quervains tenosynovitis, S/P injection Date of injection: 11/25/24 Negative Natan test No 1st dorsal compartment tenderness today 3. Right basal joint arthritis, S/P injection Date of injection: 08/12/24 4. Left basal joint arthritis 5. Right Cubital tunnel syndrome, mild Symptoms intermittent and only occasional Not seen on NCS from 08/21/24 6. Right hand numbness In the median nerve distribution With dense numbness No carpal tunnel found on NCS from 08/21/24 7. Cervical Myelopathy, S/P C5-C6, and C6-C7 ACDF DOS: 06/13/23 She is managing this with a machine shop specialist Please note that greater than 40 minutes was spent with this patient going over the history, evaluating the patient and radiographs, formulating possible treatment options, discussing them with the patient, and documenting the visit. Scribed for Debra Mitchell MD by Wilfredo Stephens, medical imaging specialist, on 02/23/25 at 1:15 PM, EST. Orders: Orders XR hand RT min 3V Today M79.641 - Pain in right hand Coding Level of Care Code Est Pt Level 4 (14130) Diagnoses Closed fracture of base of distal phalanx of right thumb S62.521A Fracture of trapezium of right wrist S62.171A Arthritis of carpometacarpal (CMC) joint of right thumb M18.11 Numbness and tingling in right hand R20.0; R20.2 Fibromyalgia M79.7 Opioid dependence on agonist therapy F11.20 CPT Codes Fracture Care - Fracture Billing Code: Fracture Billing Code ([id number])
== END 2025-02-23 14:06 | disposition home or self-care (01) ==
LOC: HO.HOS 12:32
PROVIDERS: PCP Internal Medicine; Visit Provider Orthopaedic Surgery
DX: S62.521A Displaced fracture of distal phalanx of right thumb, initial encounter for closed fracture (principal); S62.171A Displaced fracture of trapezium [larger multangular], right wrist, initial encounter for closed fracture; M18.11 Unilateral primary osteoarthritis of first carpometacarpal joint, right hand; R20.0 Anesthesia of skin; R20.2 Paresthesia of skin; M79.7 Fibromyalgia; F11.20 Opioid dependence, uncomplicated
CPT/HCPCS: 99214

== ENCOUNTER → 2025-02-23 13:17 | Outpatient (BNV) | payer OTHER, SELFPAY | PROVIDERS: PCP Internal Medicine; Visit Provider Radiology Diagnostic Radiology | DX: M79.641 Pain in right hand (principal) | CPT/HCPCS: 73130 ==

== ENCOUNTER 2025-03-16 09:13 | Outpatient (REF) | payer OTHER, SELFPAY ==
--- NOTE | ~2025-03-16 | XR_ITS ---
EXAMINATION: XR HAND, RIGHT CLINICAL INFORMATION: M79.641 - Pain in right hand COMPARISON: None available. TECHNIQUE: PA, lateral, and oblique views of the right hand. FINDINGS: No fracture lines are identified. Joint spaces are preserved. No osteophytes or erosions are seen. A ring partially obscures the proximal fourth digit. XR/XR hand RT min 3V IMPRESSION: Unremarkable right hand. Electronically signed by: Joel Garg MD 03/16/2025 01:57 PM EDT
--- OUTSIDE RECORDS SUMMARY | 2025-03-18 09:46 | XMS_ITS | Encounter Summary ---
Author Organization [employer] Address [address] [facility] [address] [place] [address] Care Team Providers Care Pullman Conductor Name Role Phone Unavailable Primary Care Provider Unavailabl e Encounter Details Date Type Department Care Team (Late st Contact Info) Description 06/11/2022 Abstract [facility] ADULT DENTAL [address] [place] [address] Dental, Provider, DDS Social History Tobacco Use [...]
--- OUTSIDE RECORDS SUMMARY | 2025-03-18 09:46 | XMS_ITS | Clinical Summary ---
Author Organization [employer] Address [address] [facility] [address] [place] [address] Care Team Providers Care Hand Spring Former Name Role Phone Unavailable Primary Care Provider [...] patient's age to complete this topic Insurance [facility] STAND ADULT
== END 2025-03-16 09:14 | disposition home or self-care (01) ==
LOC: HO.HOSX 09:13
PROVIDERS: Visit Provider Orthopaedic Surgery
DX: S62.524A Nondisplaced fracture of distal phalanx of right thumb, initial encounter for closed fracture (principal); S62.174A Nondisplaced fracture of trapezium [larger multangular], right wrist, initial encounter for closed fracture; M18.11 Unilateral primary osteoarthritis of first carpometacarpal joint, right hand; R20.0 Anesthesia of skin; M79.7 Fibromyalgia; F11.20 Opioid dependence, uncomplicated; W19.XXXA Unspecified fall, initial encounter
CPT/HCPCS: 73130; 99212

== ENCOUNTER 2025-03-16 13:37 | Outpatient (AMB) | payer OTHER, SELFPAY ==
--- NOTE | 2025-03-16 14:16 | A.OFFVIS_ITS ---
Vital Signs 03/16/25 14:18 Height 4 ft 10 in Weight 120 lb BMI 25.1 Intake Visit Reasons: OV f/u RT thumb pain Intake Note: Ginette 44 yr old female presents today for her follow up visit foe her Right thumb distal phalanx base fracture & Right trapezium fracture DOI: 01/29/25 status post fall. At her last visit she was advise to wear her thermo molded brace with activities. Patient came in today stating she has not taken off her brace in 4 weeks and feels like it is stuck. Allergies acetaminophen (ACETAMINOPHEN) Adverse Reaction (Intermediate, Verified 03/16/25 14:29) INCREASES INTERSTITIAL CYSTITIS/vomiting HPI HPI OV f/u RT thumb pain: Details: Ginette is a 44 year old ambidextrous woman who returns for her right thumb distal phalanx fracture & trapezium fracture, from a fall, DOI: 01/29/25. She says she has not taken her brace off at home. She says it hurt too bad to take her brace off at home and she has been wearing it like a cast. She says family & friends insisted she keep her splint on as long as she had pain. More remote history: She also has right De Quervains & basal joint arthritis. She was last seen and received a 1st dorsal compartment injection on 11/25/24. She says she could not move her thumb for the next 4 days afterwards. She is somewhat tearful today and says her 10-year-old dog has started having seizures. Again she still reports numbness in her hands. Recent nerve conduction study from 08/21/2024 was negative. She is on an Opioid contract for Suboxone, she has been on since 2014. She has a Hx of cervical myelopathy and a Hx of ACDF done by a medical sales specialist. She says there is a lot they missed & didn't do . She says she has no change in her numbness or weakness following her surgery, and her symptoms have worsened, and is now accompanied by recurrent migraines. She is currently not working, and has been out of work for ~15 years now. *Please see my note from 08/12/24 for more information* [facility] Medical History Abnormal magnetic resonance imaging of spinal cord Hyperreflexia of lower extremity Opiate dependence Family history of hypertension Polyarthralgia Ganglion cyst of dorsum of left wrist JAME III (cervical intraepithelial neoplasia grade III) with severe dysplasia Hx of migraine headaches History of anxiety History of depression PTSD (post-traumatic stress disorder) H/O bipolar disorder Interstitial cystitis History of fibromyalgia Surgical History History of tooth extraction Hx of hand surgery Hx of cystoscopy Hx of cystoscopy Hx of section History of loop electrical excision procedure (LEEP) Hx of tubal ligation H/O abdominal hysterectomy Family History Mother Lung cancer Maternal Aunt Ovarian cancer Maternal Grandmother History of breast cancer Family/Other Mental health disorder Substance use disorder Father No problems noted. Social History Housing: Apartment Are you a primary critical care nurse to a significant other at home: No Do you presently have visiting nurse or other home services: No Alcohol intake: former Comment: all counts correct Patient Tobacco Use Status: Current everyday Tobacco user Tobacco use type: Cigarette Cigarettes Per Day: 4 Years Smoked: 31 e-Cigarette/Vaping Use: Never Used Second Hand Smoke Exposure: No service: No Current occupational status: unemployed Current occupation: right hand Cognitive needs: No Hearing needs: No Vision needs: No Physical Exam Vital Signs: BMI result Body Mass Index 25.1 Const General: no acute distress and alert Orientation/consciousness: patient oriented x3 Neuro General: patient oriented x3 Extrem Other: Evaluation of Right Upper Extremity: The patient is alert, oriented, and in no acute distress ROM: She can make a fist and extend all her digits She can oppose her thumb to the tips of all digits except the tip of the small finger, and she can almost touch that. She had some erythema to the skin over the dorsal distal phalanx of the thumb, also somewhat extending to the radial side of the thumb & the MCP joint. These appear to be from pressure points within the splint. Partial-thickness This is likely from wearing her thermal-molded thumb spica splint like a cast since her last appointment Mild wrist stiffness Trapezium NTTP No tenderness volar aspect of distal phalanx No 1st dorsal compartment tenderness Not tender over the A1 justin No locking or catching No swelling or ecchymosis Radiographs: 3 views of the right hand, with attention to the right thumb, were taken and viewed by me today in clinic. They show a non-displaced thumb distal phalanx base fracture, non-displaced and a trapezium body fracture with evidence of interval bony healing. This is a cortical defect best seen on the oblique view from 02/23/2025 Nerve Conduction Study: Right-side only FINDINGS: All motor and sensory nerves tested showed normal latencies, amplitudes and conduction velocities. Breann Mcdaniel MD, HENRIK 08/21/24 IMPRESSION:? 1. Right mid to lower cervical radiculopathy. 2. Mild right ulnar neuropathy across cubital tunnel. Dakota Bravo MD 11/01/2022 Psych Appearance: grossly normal Affect: normal affect Attitude: cooperative Assessment & Plan Assessment & Plan (1) Closed fracture of base of distal phalanx of right thumb: Code(s): S62.521A - Displaced fracture of distal phalanx of right thumb, initial encounter for closed fracture Category: Medical (2) Fracture of trapezium of right wrist: Code(s): S62.171A - Displaced fracture of trapezium [larger multangular], right wrist, initial encounter for closed fracture Category: Medical (3) Arthritis of carpometacarpal (CMC) joint of right thumb: Code(s): M18.11 - Unilateral primary osteoarthritis of first carpometacarpal joint, right hand Category: Medical (4) Numbness and tingling in right hand: Code(s): R20.0 - Anesthesia of skin; R20.2 - Paresthesia of skin Category: Medical (5) Fibromyalgia: Code(s): M79.7 - Fibromyalgia Category: Medical (6) Opioid dependence on agonist therapy: Code(s): F11.20 - Opioid dependence, uncomplicated Category: Medical Plan Assessment & Plan: 1. Right thumb distal phalanx base fracture 2. Right trapezium fracture DOI: 01/29/25 status post fall This is her chief complaint today I educated her about this condition These fractures appear to be healing well. She did have some skin irritation from unfortunately believing she needed to stay in the thermal molded splint nonstop like a cast. Unfortunately she did not know to call us when she was having pain. I let her know that whenever she has a splint or cast placed by somebody we always want to know if she has pain. I think the skin we will go on to heal uneventfully on its own. Talked about wound care. She was fitted for a comfort cool brace, to be worn with daily activities when symptomatic for the next 2-4 weeks. If she is not symptomatic she does not need to wear it. She should not put this on for the next few days to allow time for her skin to recover. I discussed activity modification, they should limit or avoid any heavy or repetitive pinching or gripping activities. she is to lift nothing heavier than a cellphone for the next 2 weeks. They should also avoid any heavy impact activities, falls, or sports activities for the next 2 weeks She should work on gentle ROM exercises, and avoid any gripping or strengthening activities She is happy with this plan. She can follow up prn 2. Right De Quervains tenosynovitis, S/P injection Date of injection: 11/25/24 Negative Natan test No 1st dorsal compartment tenderness today 3. Right basal joint arthritis, S/P injection Date of injection: 08/12/24 4. Left basal joint arthritis 5. Right Cubital tunnel syndrome, mild Symptoms intermittent and only occasional Not seen on NCS from 08/21/24 6. Right hand numbness In the median nerve distribution With dense numbness No carpal tunnel found on NCS from 08/21/24 7. Cervical Myelopathy, S/P C5-C6, and C6-C7 ACDF DOS: 06/13/23 She is managing this with a medical sales specialist Scribed for Debra Mitchell MD by Wilfredo Stephens, medical clinic manager, on 03/16/25 at 2:20 PM, EST. Orders: Orders XR hand RT min 3V Today M79.641 - Pain in right hand Coding Level of Care Code Global (95946) Diagnoses Closed fracture of base of distal phalanx of right thumb S62.521A Fracture of trapezium of right wrist S62.171A Arthritis of carpometacarpal (CMC) joint of right thumb M18.11 Numbness and tingling in right hand R20.0; R20.2 Fibromyalgia M79.7 Opioid dependence on agonist therapy F11.20
[2025-03-16 14:18] VITALS: BMI 25.1
--- OUTSIDE RECORDS SUMMARY | 2025-03-16 14:53 | XMS_ITS | Encounter Summary ---
Author Organization [employer] Address [address] [facility] [address] [place] [address] Care Team Providers Care Machine Operator Name Role Phone Unavailable Primary Care Provider Unavailabl e Encounter Details Date Type Department Care Team (Late st Contact Info) Description 06/11/2022 Abstract [facility] ADULT DENTAL [address] [place] [address] Dental, Provider, DDS Social History Tobacco Use [...]
--- OUTSIDE RECORDS SUMMARY | 2025-03-16 14:53 | XMS_ITS | Clinical Summary ---
Author Organization [employer] Address [address] [facility] [address] [place] [address] Care Team Providers Care Prefitter Name Role Phone Unavailable Primary Care Provider [...] patient's age to complete this topic Insurance [facility] STAND ADULT
== END 2025-03-16 14:37 | disposition home or self-care (01) ==
LOC: HO.HOS 13:38
PROVIDERS: PCP Internal Medicine; Visit Provider Orthopaedic Surgery
DX: S62.521A Displaced fracture of distal phalanx of right thumb, initial encounter for closed fracture (principal); S62.171A Displaced fracture of trapezium [larger multangular], right wrist, initial encounter for closed fracture; M18.11 Unilateral primary osteoarthritis of first carpometacarpal joint, right hand; R20.0 Anesthesia of skin; R20.2 Paresthesia of skin; M79.7 Fibromyalgia; F11.20 Opioid dependence, uncomplicated
CPT/HCPCS: 99213

== ENCOUNTER → 2025-03-16 13:39 | Outpatient (BNV) | payer OTHER, SELFPAY | PROVIDERS: Visit Provider Radiology Diagnostic Radiology | DX: M79.641 Pain in right hand (principal) | CPT/HCPCS: 73130 ==

== ENCOUNTER 2025-04-06 10:03 | Outpatient (AMB) | payer OTHER, SELFPAY ==
--- NOTE | 2025-04-06 10:03 | MHC.OFFVIS ---
Intake Visit Reasons: 3m follow up Intake Note: Patient presents follow up headache/numbness medication. No-showed Urology 03/02 Allergies acetaminophen (ACETAMINOPHEN) Adverse Reaction (Intermediate, Verified 04/06/25 10:04) INCREASES INTERSTITIAL CYSTITIS/vomiting HPI Comments Details: 45y/o L. handed female comes for a f/u of migraines and Upper Extremity paresthesias via [employer] . January 29, 2025 She broke her r. thumb after a fall and is being followed by [facility] per orthopedic surgeon. She had cervical spine surgery in 2022, C5-6 and C6-7 fusion. She still has persistent and worsening numbness and weakness in her RUE r. hand and first 3 digits, with burning, numbness, tingling, and radiating pain into palm. She wears a glove because the slightest wind gush makes the sensation worse with pain. She feels weakness in her hands bilaterally says she has no strength. Will occasionally drop articles from her hands. Her headaches have improved now 3x a month with decrease in severity. She says the Amitryptyline 25mg po daily has really made a difference in her headaches as now they no longer last into the next day. She discontinued Sumatriptan 50mg for acute onset of headaches as it was not effective in controlling her pain. She has less pain on movement of neck when she takes cyclobenzaprine 10mg and this usually helps improves her symptoms. Chrnonic Cystitis: She says her visin became blurry since starting Elmiron for cystitis, [facility] roving tester laboratory is pending for eyes. Encouraged patient to go into the ED if she has a fever, hematuria, urgency, frequency or low back pain. Characteristic of Migraine: Migraines in the nape of the neck, and radiates up to the parietal lobes, her jaw locks up and with pressure and it gets so severe she wants to drill a hole in her head to relieve the pressure, 3-4 x a week, at night after dinner, lasting 2hours through the night, and wakes up at 2-3am with pain and takes advil, and scratches her face in the middle of the night.She has photo/phono-phobia, denies nausea, vomiting and vertigo. H/o substance abuse: still smoking, using 7mg patches of nicotine, she would like to increase this and will cut an additional patch in half to use 7mg + 3.5mg for a total of 10.5mg po. HUAN Daigle, and Roldan Agee, therapist every two weeks. [place]iat[place] [facility] [place]. Suboxone BID 4am and 2 -3pm and Adderall is taken BID 7am 1.5 and 2-4pm 0.5 tablet she was diagnosed ADHD Denies constipation. She goes to [facility] in [address] for substance abuse disorder. [facility] Medical History Abnormal magnetic resonance imaging of spinal cord Hyperreflexia of lower extremity Opiate dependence Family history of hypertension Polyarthralgia Ganglion cyst of dorsum of left wrist JAME III (cervical intraepithelial neoplasia grade III) with severe dysplasia Hx of migraine headaches History of anxiety History of depression PTSD (post-traumatic stress disorder) H/O bipolar disorder Interstitial cystitis History of fibromyalgia Surgical History History of tooth extraction Hx of hand surgery Hx of cystoscopy Hx of cystoscopy Hx of section History of loop electrical excision procedure (LEEP) Hx of tubal ligation H/O abdominal hysterectomy Family History Mother Lung cancer Maternal Aunt Ovarian cancer Maternal Grandmother History of breast cancer Family/Other Mental health disorder Substance use disorder Father No problems noted. Social History Housing: Apartment Are you a primary wild animal caretaker to a significant other at home: No Do you presently have visiting nurse or other home services: No Alcohol intake: former Comment: all counts correct Patient Tobacco Use Status: Current everyday Tobacco user Tobacco use type: Cigarette Cigarettes Per Day: 4 Years Smoked: 31 e-Cigarette/Vaping Use: Never Used Second Hand Smoke Exposure: No service: No Current occupational status: unemployed Current occupation: right hand Cognitive needs: No Hearing needs: No Vision needs: No Physical Exam Exam Exam: Telehealth on phone visit today. Telehealth Telehealth Telehealth Platform: Telephone Location of provider rendering services: practice address Location of patient: address on file Patient Identification confirmed using: Name, : Yes Telehealth method: voice only Patient verbally consented to treatment: Yes Patient verbally consented to billing insurance company: Yes Patient informed of any privacy concerns related to visit: Yes Minutes spent on Phone/Video with Pt.: 20 Results Reviewed Results Reviewed: 08/2024 EMG/NCS FINDINGS reviewed with pt. All motor and sensory nerves tested showed normal latencies, amplitudes and conduction velocities. Right ulnar motor nerve did not show any slowing or conduction block across elbow. Concentric needle EMG was performed in selected muscles of the right upper extremity. Study did not reveal signs of electric abnormalities as shown in the table above. All motor and sensory nerves tested showed normal latencies, amplitudes and conduction velocities. MRI reviewed with pt. 10/2024 MRI reviewed with patient to r/o MS. MR/MR head/brain wo con IMPRESSION: No acute brain abnormality. Small meningocele, right Meckel's cave Assessment & Plan Assessment & Plan (1) Excessive daytime sleepiness: Code(s): G47.19 - Other hypersomnia Category: Medical Plan HST to r/o anna. Labs to r/o deficiencies Continue Amitriptyline 25mg po daily for chronic headaches, along with Cyclobenzaprine / flexiril muscle spasms 10mg qpm, F/U with suboxone clinic as needed. F/U with [facility] in 3 months in person. Orders: Orders Comprehensive Met. Panel Today G47.19 - Other hypersomnia Vitamin B6 Today G47.19 - Other hypersomnia Vitamin B12 and Folate Today G47.19 - Other hypersomnia TSH reflex Free T4 Today G47.19 - Other hypersomnia Vitamin B1 Today G47.19 - Other hypersomnia RT home sleep study Today G47.19 - Other hypersomnia Complete Blood Count no Diff Today G47.19 - Other hypersomnia Ferritin Today G47.19 - Other hypersomnia Methylmalonic Acid Today G47.19 - Other hypersomnia, G47.9 - Sleep disorder, unspecified, R53.83 - Other fatigue Hemoglobin A1c Today G47.19 - Other hypersomnia Homocysteine Today G47.19 - Other hypersomnia, G47.9 - Sleep disorder, unspecified, R53.83 - Other fatigue Vitamin D 25-OH Total Today G47.19 - Other hypersomnia Medications: Refilled amitriptyline take one tablet at bedtime daily for chronic headaches. 25 mg PO ONCE 90 tabs 3RF Migraines 90 days MDD 25mg Z86.69 - Personal history of other diseases of the nervous system and sense organs Coding Level of Care Code Tele Est Pt Level 4 (44609) Diagnoses Excessive daytime sleepiness G47.19
== END 2025-04-06 10:54 | disposition home or self-care (01) ==
LOC: HO.HSMS 10:04
PROVIDERS: PCP Internal Medicine; Visit Provider Physician Assistant Medical
DX: G47.19 Other hypersomnia (principal)
CPT/HCPCS: 99214